=== PATIENT | male | born 1965 | race Caucasian/White ===

== ENCOUNTER 2025-07-15 11:23 | Emergency (ER) | payer MEDICARE, SELFPAY ==
--- NOTE | ~2025-07-15 | XR_ITS ---
CLINICAL HISTORY: fall 3 views right elbow Comparison: None Findings: There is an olecranon fracture which bisects the semilunar joint and reveals approximately 14 mm proximal retraction of the olecranon fragment, measured at the articular surface. No other fracture or dislocation. No joint effusion. No significant arthritic change. No radiopaque foreign body. Impression: 1. Olecranon fracture as described above. This document has been electronically signed by: Ruben Wilson MD on 07/15/2025 12:56:49
--- NOTE | ~2025-07-15 | CT_ITS ---
CLINICAL HISTORY: fall Exam: Nonenhanced CT of the left hip with multiplanar reformats. Comparison: None. Findings: Osseous structures: There is no fracture or traumatic malalignment. No significant hip arthritic disease. No destructive osseous lesions. Soft tissues: No hip joint effusion or circumscribed collection. Visualized pelvic structures reveal no pelvic masses, fluid or adenopathy. Mild colonic diverticulosis is present, without CT evidence of diverticulitis. Impression: 1. No hip fracture or traumatic malalignment. This document has been electronically signed by: Ruben Wilson MD on 07/15/2025 14:32:37
--- NOTE | ~2025-07-15 | XR_ITS ---
CLINICAL HISTORY: fall 4 views left knee Comparison: None Findings: No fractures or dislocations. No joint effusion. No significant arthritic change. No radiopaque foreign body. Impression: 1. No fracture or dislocation. This document has been electronically signed by: Ruben Wilson MD on 07/15/2025 12:55:00
[2025-07-15 11:44] VITALS: BP 132/105; BP 132/94; PULSE 100; PULSE 107; RESP 17; TEMP 36.5; O2SAT 95; O2SAT 99; BMI 19.9
[2025-07-15 11:47] VITALS: BP 132/105; PULSE 107; RESP 17; TEMP 36.5; O2SAT 95
--- NOTE | 2025-07-15 11:47 | ED_ITS ---
HPI - General Adult General Chief complaint: Extremity Problem Stated complaint: KNEE PAIN History of Present Illness HPI narrative: Patient is a 60-year-old male came from a hotel complaining of pain to the left knee and to the right elbow. Patient claims he fell approximately 2-4 months ago. EMS reported he fell 4 months ago patient now claims that he fell 2 months ago. Complaining of pain to the elbow on the right and to the left knee. Was witnessed by the nurse to be able to ambulate but slowly. Also admits to drinking alcohol. No IV drug use. No history of heroin. No history of cocaine. No fever no chills no head injury. Related Data Allergies Allergy/AdvReac Type Severity Reaction Status Date / Time No Known Allergies Allergy Verified 07/15/25 11:46 Review of Systems 2 Review of Systems: Positive pain to the right elbow and to the left knee Yes all other systems are reviewed and are negative ON LICENSE OF [facility] Past Medical History Attestation statement: The following information was validated with the patient. Social History Social History Alcohol intake: current Alcohol intake frequency: 0-2 drinks per day Alcohol type: hard liquor Smoked in Last 30 Days: Yes Use of substances other than those prescribed or required for medical reasons: No Advance Directives: No Advance Directives Information Provided: No Do you have a plan to hurt others: No Plan Physical Exam ED Exam Exam: Appearance: Alert. Oriented X3. No acute distress. Eyes: Pupils equal, round and reactive to light. ENT: Pharynx normal. Neck: Normal inspection. Neck supple. No lymph nodes noted. No crepitus CVS: Normal heart rate and rhythm. Pulses normal. Normal S1 and S2 Respiratory: No respiratory distress. Breath sounds normal. No Wheezing. No rales Abdomen: Soft and nontender. No rigidity. No distention. good BS x4 Skin: Skin warm and dry. Normal skin color. Normal skin turgor. Extremities: No lower extremity edema. Neurovascular intact to all extremities. No Lacerations. No Rash. Good range of motion at the right elbow there is no effusion noted. There is no tenderness on palpation was able to straighten his arm out completely. No pain on internal external rotation. No redness to the skin. Sensation intact. Distal pulses intact. No anatomical snuffbox tenderness. Good movement of the hand. Sensation intact. Skin intact. Examination of the left knee showed no effusion. No tenderness on palpation of the patella. No tenderness on palpation of medial and lateral collateral ligament. Distal sensation intact. Pulse 2 +at dorsalis pedis. Skin intact. Movement of the hip intact. Neuro: Oriented X 3. No motor deficit. No sensory deficit. Moving all extermities. No slurred speech Vital Signs: Vital Signs - 24 hr 07/15/25 11:44 07/15/25 11:47 07/15/25 18:06 Temperature 97.7 F 97.7 F 98.4 F Pulse Rate 107 H 107 H 104 H Respiratory Rate 17 17 12 Blood Pressure 132/105 H 132/105 H 128/90 H Pulse Oximetry 95 95 94 Oxygen Delivery Method Room Air Room Air Room Air BMI result Body Mass Index 19.9 Medications Administered Discontinued Medications Generic Name Dose Route Start Last Admin Trade Name Freq PRN Reason Stop Dose Admin Potassium Chloride 10 meq in 100 mls @ 100 mls/hr 07/15/25 12:45 07/15/25 16:42 Potassium Chloride/H20 IV 07/15/25 14:44 Infused Q1H SARAI Infusion Magnesium Sulfate 2 gm in 50 mls @ 150 mls/hr 07/15/25 12:55 07/15/25 17:25 Magnesium Sulfate/H2o IV 07/15/25 13:14 Infused ONCE ONE Infusion Nicotine 21 mg 07/15/25 15:59 07/15/25 16:50 Nicotine 21 Mg Patch.Td24 TRANSDERMA 07/15/25 16:00 21 mg ONCE ONE Administration Potassium Chloride 40 meq 07/15/25 12:38 07/15/25 13:24 Potassium Chloride Packet 20 Meq Packet PO 07/15/25 12:39 40 meq ONCE ONE Administration Medical Decision Making Medical Decision Making MDM Narrative: 60 years old presents today with having fallen after drinking. Alcohol was about 200. X-ray of the elbow showed an old olecranon fracture. Patient has full range of motion. X-ray of the knee by my interpretation showed no acute fracture. Patient's electrolytes showed a low potassium of 2.5. Magnesium 1.5. Magnesium potassium repleted. Patient monitored in the emergency department for few hours. Electrolytes back to baseline. The potassium is back to 3.4 magnesium back to 1.9. Patient did not want to detox. Differential Diagnosis Differential Diagnoses: The differential diagnosis associated with the presentation includes Electrolyte disturbance. Alcohol abuse. Fracture. Admission/Observation Consideration of admission/observation: Escalation of care including admission/observation considered Lab Data MDM Lab Attestation statement: I reviewed the patient's lab results. 07/15/25 12:49 07/15/25 18:04 Labs: Lab Results 07/15/25 07/15/25 07/15/25 Range/Units 12:11 12:49 18:04 WBC 4.6 L (4.8-10.8) X10*3/uL RBC 4.55 L (4.60-5.80) X10*6/uL Hgb 15.0 (14.0-18.0) g/dl Hct 42.8 (42.0-52.0) % MCV 94.1 (80.0-98.0) fL MCH 33.0 (27.0-33.0) pg MCHC 35.0 (31.0-36.0) g/dl RDW 16.5 H (11.0-16.0) % Plt Count 229 (160-400) X10*3/uL MPV 9.2 L (9.4-12.4) fL Immature Gran % (Auto) 0.6 H (0.0-0.4) % Neut % (Auto) 35.5 L (45-73) % Lymph % (Auto) 51.3 H (20-40) % Edwards % (Auto) 10.0 (2-11) % Eos % (Auto) 1.7 (0-4) % Baso % (Auto) 0.9 (0-2) % Lymph # (Auto) 2.4 (1.2-4.9) X10*3/uL Edwards # (Auto) 0.5 (0.1-1.2) X10*3/uL Eos # (Auto) 0.1 (0.0-0.4) X10*3/uL Baso # (Auto) 0.0 (0.0-0.2) X10*3/uL Abs Immat Gran (auto) 0.03 (0.00-0.03) X10*3/uL Absolute Neuts (auto) 1.6 L (2.0-8.3) x10*3/uL Absolute Nucleated RBC 0.000 (0.0-0.012) X10*3/uL Nucleated RBC % (auto) 0.0 (0.0-0.2) /100WBC Sodium 140 143 (135-145) mmol/L Potassium 2.5 L* 3.4 D (3.3-5.1) mmol/L Chloride 98 106 (96-108) mmol/L Carbon Dioxide 23 23 (22-29) mmol/L Anion Gap 22 H 17 (12-20) BUN 4 L 3 L (9-16) mg/dL Creatinine 0.56 0.53 (0.5-1.4) mg/dL Estim Creat Clear Calc 126.1 133.3 Estimated GFR > 60 > 60 Random Glucose 127 H 147 H (60-115) mg/dL Calcium 8.2 L 7.5 L D (8.4-10.2) mg/dL Magnesium 1.5 L 1.9 (1.6-2.6) mg/dL Ethyl Alcohol 193 mg/dL Independent Interpretation I performed an independent interpretation of an: Plain X-Ray (X-ray of the knee no fracture. X-ray of the elbow old olecranon fracture) and CT Scan (CT hip showed no acute fracture) Radiology Impression Discussion of test interpretation with radiology: I have reviewed the radiologist's reading. Chronic Conditions Alcohol abuse Social Determinants Patient?s care significantly limited by Social Determinants of Health including: Problems related to primary support group Discharge Plan Discharge Clinical Impression: Alcohol intoxication, Electrolyte disturbance, Acute hypokalemia, Hypomagnesemia, Closed olecranon fracture Patient Disposition: Home, Self-Care Instructions: Abuse of Alcohol (DC), Elbow Fracture (DC), Hypokalemia (ED), Hypomagnesemia (ED) Additional Instructions: Alcohol use disorder You were seen in the Emergency Department today for treatment of alcohol use disorder.? You may have been given medications to help with your withdrawal symptoms.? Please do not drink alcohol with them. This is very dangerous and can cause respiratory depression or other adverse reactions depending on the medication. If you would like to cut down or stop your alcohol use please consider calling our outpatient Addiction Treatment office:? [facility] (M-F [id number]) [address] [place] [address] You have also been given a list of treatment providers in the area that can assist as well.? If you experience seizures, vomiting blood, black stools, falls, severe headache, chest pain, fevers, trouble breathing, hallucinations or any other concerns you need to call 911 or seek immediate care. Please stay hydrated. Referrals: Physician,None [Primary Care Provider, Medical] Danny Dobbs MD [Physician, Orthopedics] - 07/18/25 Print Language: French
--- NOTE | 2025-07-15 11:51 | PC.NURSE ---
Pt comes to ED via EMS for c/o L knee and R elbow pain x2-4 months. Pt reports falling from a step 2-4 months ago and landing on knees and R elbow. Seen at [facility] for eval--Pt unable to report care given/findings. Pt reports ongoing pain that increased this AM. Pt states he drank two nips this AM d/t pain. On arrival Pt is calm and cooperative. He is observed standing from EMS stretcher and is able to ambulate to C stretcher slowly, but safely. BP and P elevated No respiratory distress; Pt is afebrile. ED provider at bedside for eval. Awaiting orders.
--- OUTSIDE RECORDS SUMMARY | 2025-07-15 12:03 | XMS_ITS | Encounter Summary ---
Author Organization [facility] Address [address] [place] [address] Phone Care Team Providers Care House Cleaner Supervisor Name Role Phone Michaela Rey Primary Care Provider [phone]- [phone] Lynsey Stauffer MD Primary Care Provid er Pcp, Unknown Primary Care Provider Nancy Swain MD Primary Care Provider + [phone] Encounter Details Date Type Department Care Team (Late st Contact Info) Description 03/29/2025 Procedure Pass [facility], Ct Scan - [address] [id number] Social History Tobacco Use Types Packs/Day Years Used Date Smoking Tobacco: Every Day Cigarettes 1 45.9 Started: 1978 Smokeless Tobacco: Never Alcohol Use Standard Drinks/Week Comments Not Currently 0 (1 standard drink = 0.6 oz pur e alcohol) Education Answer Date Recorded Are you interested in more education? Not on benji e 01/02/2023 Are you concerned about learning? Not on file 01/02/2023 No 01/02/2023 No 01/02/2023 Food Answer Date Recorded Within the past 6 months we worried whether our food would run out before we got money to buy more. Never True 03/29/2025 Within the past 6 months the food we bought just didn't last and we didn't have enough money to get more. Never True Residential Stability Answer Date Recor ded What is your housing situation today? I have tree sing 03/29/2025 How many times have you move d in the past 12 months? Zero (I did not move) 03/29/2025 Paying for Meds Answer Date Recorded Do you have trouble paying for medicines? No 03/29/2025 Paying Utility Bills Answer Date Record ed Do you have trouble paying your heating or elect ricity bill? No 03/29/2025 Transportation Answer Date Recorded Has the lack of transportati on kept you from medical appointments or from getting medications? No 03/29/2025 Digital Access Answer Date Recorded No 03/29/2025 Yes 03/29/2025 Do you have reliable internet access at home? Ye s 03/29/2025 Do you have a device (e.g., phone, tablet, computer) with a working camera? Yes 03/29/2025 Intimate Partner Violence Answer Date R ecorded Are you denied basic needs s uch as food, clothing, or medical care? No 03/29/2025 In the past 12 months have y ou been in a relationship with a person who hurts, threatens, or tries to control you? No 03/29/2025 Are you denied basic needs s uch as food, clothing, or medical care? No 03/29/2025 In the past 12 months have y ou been in a relationship with a person who hurts, threatens, or tries to control you? No 03/29/2025 Sex and Gender Information Value Date Recorded Sex Assigned at Male 04/13/2025 5:01 AM EDT Legal Sex Male 9:40 PM EDT Gender Identity Male 04/13/2025 5:01 AM EDT Sexual Orientation Don't know 04/13/2025 5: 01 AM EDT documented as of this encounter Functional Status * Calculated C-SSRS Risk Score (Lifetime/Recent) Answer Date of Assessment Author No Risk Indicated 03/31/2025 8:00 AM EDT Hailee Cloud RN * Schleicher Suicide Severity Rating Scale (Screener/Recent Self-Report) Question Answer Date of Assessment Author 1. Wish to be (Past 1 Month) No 03/31/2025 8:00 AM JOSET Haylee Bills RN 2. Non-Specific Active Suicidal Thoughts (Past 1 Month) No 03/31/2025 8:00 AM EDT Haylee Bills RN 6. Suicidal Behavior (Lifetime) No 03/31/2025 8:00 AM EDT Haylee Bills RN documented as of this encounter Plan of Treatment Not on file documented as of this encounter Visit Diagnoses Not on filedocumented in this encounter Additional Health Concerns Infection Onset Date Last Indicated Resolved Time CoV-Risk 06/03/2025 06/03/2025 06/14/2025 1:21 AM EDT documented as of this encounter Care Teams House Cleaner Supervisor Relationship Specialty Start Date End Date Michaela Rey PA [address] [place] [address] PCP - General Job Checker 03/09/19 04/09/25 Lynsey Stauffer MD [address] [facility] [address] [place] [address] [email or web address] PCP - General Cardiology 04/10/25 04/12/25 Pcp, Unknown PCP - General 04/13/25 05/07/25 Nancy Zamorano MD [address] [place] [address] PCP - General Family Medicine 05/08/25 documented as of this encounter Additional Source Comments The information contained in this document represents components of the legal health record. It is not the complete legal health record.[facility]
--- OUTSIDE RECORDS SUMMARY | 2025-07-15 12:03 | XMS_ITS | Encounter Summary ---
Author Organization [facility] Address [address] [place] [address] [place] [address] Phone Care Team Providers Care Nitro Man Name Role Phone Unknown, Unknown Primary Care Provider Iván Avalos MD Primary Care Provider [phone] Unknown, Unknown Primary Care Provider Michaela Braun Primary Care Provider [phone] Lynsey Stauffer MD Primary Care Provid er Pcp, Unknown Primary Care Provider Nancy Swain MD Primary Care Provider + [phone] Encounter Details Date Type Department Care Team (Late st Contact Info) Description 08/28/2017 Procedure Pass [facility], Ct Scan - [address] [address] Social History Tobacco Use Types Packs/Day Years Used Date Smoking Tobacco: Every Day Alcohol Use Standard Drinks/Week Comments Yes 0 (1 standard drink = 0.6 oz pur e alcohol) Sex and Gender Information Value Date Recorded Sex Assigned at Male 04/13/2025 5:01 AM EDT Legal Sex Male 9:40 PM EDT Gender Identity Male 04/13/2025 5:01 AM EDT Sexual Orientation Don't know 04/13/2025 5: 01 AM EDT documented as of this encounter Plan of Treatment Not on file documented as of this encounter Visit Diagnoses Not on filedocumented in this encounter Additional Health Concerns Infection Onset Date Last Indicated Resolved Time CoV-Risk 06/03/2025 06/03/2025 06/14/2025 1:21 AM EDT documented as of this encounter Care Teams Nitro Man Relationship Specialty Start Date End Date Unknown, Kimberly, PCP - General 08/11/17 10/23/17 Iván Mcrgath MD [email or web address] PCP - General Internal Medicine 10/24/17 12/08/17 Unknown, Unknown, PCP - General 12/09/17 03/08/19 Michaela Rey PA [address] [place] [address] PCP - General Survey Technologist 03/09/19 04/09/25 Lynsey Stauffer MD [address] [place] [address] [address] [place] [address] [email or web address] PCP - General Cardiology 04/10/25 04/12/25 Pcp, Unknown PCP - General 04/13/25 05/07/25 Nancy Zamorano MD [address] [place] [id number] PCP - General Family Medicine 05/08/25 documented as of this encounter Additional Source Comments The information contained in this document represents components of the legal health record. It is not the complete legal health record.[facility]
--- OUTSIDE RECORDS SUMMARY | 2025-07-15 12:03 | XMS_ITS | Clinical Summary ---
Author Organization [facility] Address [address] [place] [address] Care Team Providers Care Residential Treatment Counselor Name Role Phone Rhonda Sexton MD Primary Care Provider [phone] Source Comments PLEASE NOTE, if this patient is a minor, it may be UNLAWFUL to discuss sensitive information that is contained in these records (such as FAMILY PLANNING, MENTAL HEALTH or SUBSTANCE ABUSE) with the minor patient's parent or other person without the patient's specific authorization.[facility] Allergies No known active allergies Medications busPIRone (BUSPAR) 30 mg tablet TAKE 1 TABLET BY MOUTH EVERY DAY 90 Tablet 01/04/2024 Active cloNIDine HCL (CATAPRES) 0.2 mg tablet TAKE 1 TABLET BY MOUTH THREE TIMES A DAY NEEDED 270 Tablet 03/07/2024 Active hydrOXYzine HCL (ATARAX) 50 mg tablet TAKE 1 TABLET BY MOUTH TWICE A DAY NEEDED FOR ANXIETY 180 Tablet 06/06/2024 Active Active Problems No known active problems Immunizations Immunization Administration Dates Next Due INFLUENZA, SEASONAL, INJECTABLE 04/24/2014,05/26,08/15/2011 INFLUENZA, SEASONAL, INJECTA BLE, PRESERVATIVE FREE 05/02/2015,06/20/2013 Moderna COVID-19 Vaccine, re d cap blue label, 12+ Primary Series 04/02/2021 TDAP 02/09/2013 Family History Medical History Relation Name Comments Skin cancer Father Relation Name Status Comments Father Social History Tobacco Use Types Packs/Day Years Used Date Smoking Tobacco: Every Day Cigarettes Smokeless Tobacco: Current Tobacco Cessation:Counseling Given: No Alcohol Use Standard Drinks/Week Comments Not Currently 0 (1 standard drink = 0.6 oz pur e alcohol) Social Connections Answer Date Recorded Connectedness 0 05/19/2024 Financial Resource Strain Answer Date R ecorded Financial Resource Strain 0 2020 Stress Answer Date Recorded Stress 0 08/21/2021 Physical Activity Answer Date Recorded Physical Activity 0 08/21/2021 Food Insecurity Answer Date Recorded Food 0 06/02/2024 Transportation Needs Answer Date Record ed Transportation 0 08/21/2021 Housing Stability Answer Date Recorded Housing 0 08/21/2021 Safety and Environment Answer Date Abhilash rded Safety 0 08/21/2021 Utilities Answer Date Recorded Utilities 0 08/21/2021 Employment Answer Date Recorded Stress 0 05/19/2024 Sex and Gender Information Value Date Recorded Sex Assigned at Male 08/20/2021 1:30 PM PST Legal Sex Male 1:26 PM PST Gender Identity Male 08/20/2021 1:30 PM PST Sexual Orientation Bisexual 08/20/2021 1: 30 PM PST Last Filed Vital Signs Vital Sign Reading Time Taken Comments Blood Pressure 122/72 04/01/2022 2:58 PM EDT Pulse 103 04/01/2022 2:58 PM EDT Temperature 37.1 C (98.7 F) 04/01/2022 2:58 PM EDT Respiratory Rate - - Oxygen Saturation 97% 04/01/2022 2:58 PM EDT Inhaled Oxygen Concentration - - Weight 84.4 kg (186 lb) 04/01/2022 2:58 PM EDT Height 173.4 cm (5' 8.25 ) 01/20/2022 10:17 AM E DT Body Mass Index 28.07 01/20/2022 10:17 AM EDT Plan of Treatment Health Maintenance Due Date Last Done Comments Anxiety Screening 1966 Diabetes Screening 1966 Hepatitis B Screening 1966 Hepatitis C Screening 1966 Lipid Screening 1966 Tobacco Cessation Counseling (#1) 1966 Tobacco Screening 1966 HIV Screening 1966 Medicare Annual Wellness Visit 1984 Imm-Hepatitis B (1 of 3 - 19 + 3-dose series) 1985 Imm-Pneumococcal 50+ (1 of 2 - PCV) 1985 CT Colonography 2011 Colonoscopy 2011 Colorectal Cancer Screening 2011 FIT/gFOBT 2011 Fecal DNA 2011 Flexible Sigmoidoscopy 2011 Imm-Zoster, Recombinant (1 of 2) 2016 Imm-DTaP/Tdap/Td (2 - Td or Tdap) 02/09/2023 013 Hypertension Screening (#1) 04/01/2023 Alcohol and Drug Screen 09/07/2024 Depression Annual Screen 09/07/2024 [id number] (2 - season) 2025 021 Imm-Influenza (#1) 2025 05/02/2015, 0 04/24/2014, 06/20/2013, Additional history exists Insurance [place] MEDICA[place] Member Subscriber Plan / Payer (Ef fective 2021-Present) Name:Shayne Dickey Relation to Subscriber:Self Name:Shayne Dickey Payer ID:[id number] Group ID:Not on file Type:Medicaid Address: [address] [id number] MEDICARE - [place] Care Teams Residential Treatment Counselor Relationship Specialty Start Date End Date Rhonda Sexton MD [address] [place] [id number] PCP - General Internal Medicine 08/20/21
--- OUTSIDE RECORDS SUMMARY | 2025-07-15 12:03 | XMS_ITS | Encounter Summary ---
Author Organization [facility] Address [address] [facility] [address] [place] [address] Phone Care Team Providers Care Auto Body Technician Name Role Phone Unknown, Unknown Primary Care Provider Michaela Braun Primary Care Provider [phone] Lynsey Stauffer MD Primary Care Provid er Pcp, Unknown Primary Care Provider Nancy Swain MD Primary Care Provider Encounter Details Date Type Department Care Team (Late st Contact Info) Description 09/01/2018 Transcribe Orders [facility] Specimen Processing [address] [place] [address] Mina Soriano, DO [address] [place] [address] [place] [address] [email or web address] Routine general medical examination at a health care facility (Primary Dx) Social History Tobacco Use Types Packs/Day Years Used Date Smoking Tobacco: Every Day Alcohol Use Standard Drinks/Week Comments Yes 0 (1 standard drink = 0.6 oz pur e alcohol) 1 pt per day last drinkyest Sex and Gender Information Value Date Recorded Sex Assigned at Male 04/13/2025 5:01 AM EDT Legal Sex Male 9:40 PM EDT Gender Identity Male 04/13/2025 5:01 AM EDT Sexual Orientation Don't know 04/13/2025 5: 01 AM EDT documented as of this encounter Plan of Treatment Not on file documented as of this encounter Results * CBC (09/01/2018 9:54 AM EST) WBC 9.42 3.40 - 11.20 K/uL [facility] RBC 5.03 4.50 - 5.50 M/uL [facility] HGB 15.7 13.0 - 17.0 g/dL [facility] HCT 46.9 40.0 - 51.0 % [facility] PLT 335 130 - 400 K/uL [facility] MCV 93.2 79.0 - 98.0 fL [facility] MCH 31.2 27.0 - 34.8 pg [facility] MCHC 33.5 31.5 - 36.0 g/dL [facility] RDW 14.6 10.8 - 14.6 % [facility] MPV 9.8 9.4 - 12.4 [facility] NRBC 0.00 0.00 /100 WBCs [facility] ABSOLUTE NRBC 0.00 0.00 K/uL [facility] Blood 09/01/2018 9:54 AM EST 09/01/2018 11:50 AM EST us Mina A Bigda DO LAB BLOOD BKR ORDERABLES Final R esult Performing Organization Address City/State/[facility] Co de Phone Number [address] [address] documented in this encounter Visit Diagnoses Diagnosis Routine general medical examination at a health care facility- Primary documented in this encounter Additional Health Concerns Infection Onset Date Last Indicated Resolved Time CoV-Risk 06/03/2025 06/03/2025 06/14/2025 1:21 AM EDT documented as of this encounter Care Teams Auto Body Technician Relationship Specialty Start Date End Date Unknown, Unknown, PCP - General 12/09/17 03/08/19 Michaela Rey PA [address] [place] [id number] PCP - General Beam Racker 03/09/19 04/09/25 Lynsey Stauffer MD [address] [place] [address] [email or web address] PCP - General Cardiology 04/10/25 04/12/25 Pcp, Unknown PCP - General 04/13/25 05/07/25 Nancy Zamorano MD [address] [place] [address] PCP - General Family Medicine 05/08/25 documented as of this encounter Additional Source Comments The information contained in this document represents components of the legal health record. It is not the complete legal health record.[facility]
--- OUTSIDE RECORDS SUMMARY | 2025-07-15 12:03 | XMS_ITS | Encounter Summary ---
Author Organization [facility] Address [address] [facility] [address] [place] [address] Phone Care Team Providers Care Plant Production Worker Name Role Phone Michaela Rey Primary Care Provider [phone]- [phone] Lynsey Stauffer MD Primary Care Provid er Pcp, Unknown Primary Care Provider Nancy Swain MD Primary Care Provider + [phone] Encounter Details Date Type Department Care Team (Late st Contact Info) Description 06/27/2021 Procedure Pass [facility], Ct Scan - [address] [id number] Social History Tobacco Use Types Packs/Day Years [...] Date of Assessment Author No Risk Indicated 06/27/2021 3:09 AM EDT Shona Couch RN * [place] Suicide Severity Rating Scale (Screener/Recent Self-Report) Question Answer Date of Assessment Author 1. Wish to be (Past 1 Month) No 06/27/2021 3:09 AM EDT Liz Dupont RN 2. Non-Specific Active Suicidal Thoughts (Past 1 Month) No 06/27/2021 3:09 AM EDT Liz Dupont RN 6. Suicidal Behavior (Lifetime) No 06/27/2021 3:09 AM EDT Lzi Dupont RN documented as of this encounter Plan of Treatment Not on file documented as of this encounter Visit Diagnoses Not on filedocumented in this encounter Additional Health Concerns Infection Onset Date Last Indicated Resolved Time CoV-Risk 06/03/2025 06/03/2025 06/14/2025 1:21 AM EDT documented as of this encounter Care Teams Plant Production Worker Relationship Specialty Start Date End Date Michaela Rey PA [address] [place] [id number] PCP - General Machine Castings Plasterer 03/09/19 04/09/25 Lynsey Stauffer MD [address] [facility] [address] [place] [address] [email or web address] PCP - General Cardiology 04/10/25 04/12/25 Pcp, Unknown PCP - General 04/13/25 05/07/25 Nancy Zamorano MD [address] [place] [id number] PCP - General Family Medicine 05/08/25 documented as of this encounter Additional Source Comments The information contained in this document represents components of the legal health record. It is not the complete legal health record.[facility]
--- OUTSIDE RECORDS SUMMARY | 2025-07-15 12:03 | XMS_ITS | Encounter Summary ---
Author Organization [facility] Address [address] [place] [address] [place] [address] Phone Care Team Providers Care Cd Reactor Operator Head Name Role Phone Unknown, Unknown Primary Care Provider Iván Avalos MD Primary Care Provider [phone] Unknown, Unknown Primary Care Provider Michaela Braun Primary Care Provider [phone] Lynsey Stauffer MD Primary Care Provid er Pcp, Unknown Primary Care Provider Nancy Swain MD Primary Care Provider + [phone] Encounter Details Date Type Department Care Team (Late st Contact Info) Description 08/28/2017 Procedure Pass [facility], Ct Scan - [address] [address] Social History Tobacco Use Types Packs/Day Years [...] documented as of this encounter Care Teams Cd Reactor Operator Head Relationship Specialty Start Date End Date Unknown, Kimberly, PCP - General 08/11/17 10/23/17 Iván Mcgrath MD [email or web address] PCP - General Internal Medicine 10/24/17 12/08/17 Unknown, Unknown, PCP - General 12/09/17 03/08/19 Michaela Rey PA [address] [place] [phone] PCP - General Night Shift 03/09/19 04/09/25 Lynsey Stauffer MD [address] [place] [address] [address] [place] [address] [email or web address] PCP - General Cardiology 04/10/25 04/12/25 Pcp, Unknown PCP - General 04/13/25 05/07/25 Nancy Zamorano MD [address] [place] [id number] PCP - General Family Medicine 05/08/25 documented as of this encounter Additional Source Comments The information contained in this document represents components of the legal health record. It is not the complete legal health record.[facility]
--- OUTSIDE RECORDS SUMMARY | 2025-07-15 12:03 | XMS_ITS | Clinical Summary ---
Author Organization 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 60 tablet 05/29/2025 Active thiamine (VITAMIN B-1) 100 mg Tab tablet Take 1 tablet (100 mg total) by mouth daily. 30 tablet 05/29/2025 multivitamin per tablet Take 1 tablet by mouth daily. 30 tablet 05/29/2025 5 folic acid (FOLVITE) 1 MG tablet Take 1 tablet (1 mg total) by mouth daily. 30 tablet 05/29/2025 5 Active Problems Problem Noted Date Diagnosed Date Alcohol withdrawal 05/07/2025 Assessment & Plan (05/07/2025 11:54 AM EDT): Shayne has not been clear as to when his last drink was, but he clearly began withdrawing upon discharge from the ER after evaluation for knee pain. He has appropriately been loaded with 10 mg/kg of phenobarbital with another 130 mg bolus given shortly after. His vital signs seem to be improving. He has mild sedation from this. He will be admitted to telemetry due to his electrolyte abnormalities. 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 High-dose IV thiamine. Multivitamin and folate supplementation. Social work and case management consult when appropriate. He will be monitored on the [facility] protocol. There is room to increase dosing of phenobarbital if necessary. Depressed mood 04/02/2025 Assessment & Plan (04/06/2025 3:55 PM EDT): Anticipate dispo to voluntary inpatient psychiatric unit Assessment & Plan (04/05/2025 3:00 PM EDT): Anticipate dispo to voluntary inpatient psychiatric unit Assessment & Plan (04/04/2025 12:09 PM EDT): Anticipate dispo to voluntary inpatient psychiatric unit Assessment & Plan (04/03/2025 6:47 PM EDT): Discussing treatment options including the possibility of voluntary psychiatric care Assessment & Plan (04/02/2025 3:50 PM EDT): Describes worse than baseline depression will ask her BHRT assessment Metabolic alkalosis 03/31/2025 Assessment & Plan (04/06/2025 3:55 PM EDT): improved Assessment & Plan (04/05/2025 3:00 PM EDT): improved Assessment & Plan (04/04/2025 12:09 PM EDT): improved Assessment & Plan (04/04/2025 9:29 AM EDT): No longer a concern Nephrology will sign off. Thank you for the consultation. Quality Clinical Documentation: Assessment & Plan (04/03/2025 6:47 PM EDT): improved Assessment & Plan (04/03/2025 9:01 AM EDT): No longer a concern Quality Clinical Documentation: Assessment & Plan (04/02/2025 3:50 PM EDT): improved Assessment & Plan (04/02/2025 1:12 PM EDT): Quality Clinical Documentation: Assessment & Plan (04/01/2025 10:40 AM EDT): Quality Clinical Documentation: Assessment & Plan (03/31/2025 9:15 AM EDT): Chloride responsive will continue to improve with isotonic volume resuscitation and potassium correction takes place. Target K to normal levels. Quality Clinical Documentation: Hyponatremia 03/30/2025 Assessment & Plan (06/18/2025 4:10 PM EDT): With los osmolality of 261, thought to be secondary to beer potomania, however patient reports not drinking over several days, patient has had urinary sodium <20 which could also indicate tea and toast syndrome if not able to secure stable food, urine osmolality in the past has not been elevated, therefore it is less likely SIADH. Sodium level improved overnight, now up to 131. Urine sodium less than 20. Urine creatinine 233 --Encourage p.o. diet --Can liberalize fluid restriction --Consult to adoption social worker given homelessness, recent EtOH abuse and limited access to nutrition Assessment & Plan (06/17/2025 12:01 PM EDT): With los osmolality of 261, thought to be secondary to beer potomania, however patient reports not drinking over several days, patient has had urinary sodium <20 which could also indicate tea and toast syndrome if not able to secure stable food, urine osmolality in the past has not been elevated, therefore it is less likely SIADH. - Check urinary osmolality and sodium - Fluid restrict <1.2L/d - Start PO intake of food with protein - Will recheck parameters later today Assessment & Plan (05/28/2025 1:57 PM EDT): Suspect hypoosmotic hyponatremia in the setting of decreased solute intake and volume depletion. Similar episode occurred back in March requiring ICU admission hypertonic saline, but noted to have a tom of sodium 110 at that time with encephalopathy. - Patient was placed on fluid restriction with rapid improvement in his sodium levels requiring D5W overnight. Sodium levels now stabilized, normalized. - Urine sodium <20, urine osmo 106, serum osmolality low 252 - TSH wnl -Hypokalemia, hypomagnesemia secondary to EtOH repleted and currently normalized. EtOH abstinence was emphasized during hospitalization. Assessment & Plan (05/27/2025 3:22 PM EDT): Suspect hypoosmotic hyponatremia in the setting of decreased solute intake and volume depletion. Similar episode occurred back in March requiring ICU admission hypertonic saline, but noted to have a tom of sodium 110 at that time with encephalopathy. - Will place on 1 L fluid restriction. - Continue to monitor sodium every 6 hours - Gradually increase sodium 6-8 mill equivalents over the next 24 hours. - Urine sodium <20, urine osmo 106, serum osmolality low 252 - TSH wnl Assessment & Plan (05/27/2025 6:44 AM EDT): Suspect hypoosmotic hyponatremia in the setting of decreased solute intake and volume depletion. Similar episode occurred back in March requiring ICU admission hypertonic saline, but noted to have a tom of sodium 110 at that time with encephalopathy. - Will place on 1 L fluid restriction. - Continue to monitor sodium every 6 hours -Gradually increase sodium 6-8 mill equivalents over the next 24 hours. - Obtain urine sodium, urine osmolality, and serum osmolality - Low suspicion for thyroid or adrenal insufficiency, but will obtain TSH reflex. Assessment & Plan (04/06/2025 3:55 PM EDT): Patient initially required ICU for sodium of 110 on 03/30 Sodium improved to 131 -Patient does report drinking a lot of water - Continue fluid restriction 1500 ml and continue to encourage him to avoid excessive water intake -Nephrology is following Assessment & Plan (04/05/2025 3:00 PM EDT): Patient initially required ICU for sodium of 110 on 03/30 Sodium is now improved to 131 -Patient does report drinking a lot of water - Continue fluid restriction 1500 ml and continue to encourage him to avoid excessive water intake -Nephrology is following Assessment & Plan (04/04/2025 12:09 PM EDT): Patient initially required ICU for sodium of 110 on 03/30 Sodium is now improved to 132 -Patient does report drinking a lot of water - Continue fluid restriction 1500 ml and continue to encourage him to avoid excessive water intake -Nephrology is following Assessment & Plan (04/04/2025 9:29 AM EDT): -Corrected at 130-132 stable. Continue to monitor. - Continue with fluid restriction 1500 mL daily. Assessment & Plan (04/03/2025 6:47 PM EDT): Patient initially required ICU for sodium of 110 on 03/30 Sodium is now improved to 130 -Patient does report drinking a lot of water - Continue fluid restriction 1500 ml and continue to encourage him to avoid excessive water intake -Nephrology is following Assessment & Plan (04/03/2025 9:01 AM EDT): -Corrected at 130 stable. Continue to monitor daily. - Continue with fluid restriction 1500 mL daily. Assessment & Plan (04/02/2025 3:50 PM EDT): Patient initially required ICU for sodium of 110 on 03/30 Sodium is now improved to 129 -Reviewed nephrology's note Dr. Santos which is slightly confusing it appears there is some old information included in the note, but the current assessment and recommendations appear to be hypoosmotic hyponatremia as a result of a combination of perfusion dependent mechanisms of ADH release initially likely as a result of early decreased intravascular volume compounded by poor oral intake resulting in poor osmole intake limiting ability to excrete water appropriately. Perfusion and dependent ADH secretion likely also playing a role. The patient's sodium has stabilized albeit at a lower than normal level. I have reinstituted a tighter fluid restriction and will follow his sodium before adding urine osmole such as urea or sodium to his regimen. -Patient does report drinking a lot of water, he was started on the fluid restriction recommended by Dr. Santos this afternoon and we will see how his sodium trends Assessment & Plan (04/02/2025 1:12 PM EDT): Sodium levels 123-124 as of this morning right at target thankfully responding well to DDAVP and water repletion to avoid rapid hyponatremia correction and ODS. - At present I would suggest to initiate IV normal saline at 75 mL/h +40 mEq Kcl/L -May switch sodium checks to every 4 hours expect sodium levels to correct towards 128-130 in the next 24 hours. Assessment & Plan (03/31/2025 9:15 AM EDT): Sodium levels 123-124 as of this morning right at target thankfully responding well to DDAVP and water repletion to avoid rapid hyponatremia correction and ODS. - At present I would suggest to initiate IV normal saline at 75 mL/h +40 mEq Kcl/L -May switch sodium checks to every 4 hours expect sodium levels to correct towards 128-130 in the next 24 hours. Alcohol use disorder 03/30/2025 Assessment & Plan (05/28/2025 1:57 PM EDT): Patient presented with alcohol withdrawal with evidence of tremulous. Patient is not a good historian, last drink is unclear, suspect drinking at least 7-8 nips per day. Has prior history of withdrawal seizures, none recently, not on antiepileptics. Alcohol level was negative. - Patient received phenobarbital loading dose on 05/27 at 4 AM - Continue alcohol withdrawal protocol - Start thiamine, folate, multivitamin - May consider additional doses of phenobarbital if needed for elevated CIWA scores. - Avoiding hydroxyzine due to prolonged QT - May consider adding clonidine if needed Assessment & Plan (05/27/2025 3:22 PM EDT): Patient presented with alcohol withdrawal with evidence of tremulous. Patient is not a good historian, last drink is unclear, suspect drinking at least 7-8 nips per day. Has prior history of withdrawal seizures, none recently, not on antiepileptics. Alcohol level was negative. - Patient was started on phenobarbital loading dose. - Continue alcohol withdrawal protocol - Start thiamine, folate, multivitamin - May consider additional doses of phenobarbital if needed for elevated CIWA scores. - Avoiding hydroxyzine due to prolonged QT - May consider adding clonidine if needed Assessment & Plan (05/27/2025 6:44 AM EDT): Patient presented with alcohol withdrawal with evidence of tremulous. Patient is not a good historian, last drink is unclear, suspect drinking at least 7-8 nips per day. Has prior history of withdrawal seizures, none recently, not on antiepileptics. Alcohol level was negative. -Patient was started on phenobarbital loading dose. - Continue alcohol withdrawal protocol - Start thiamine, folate, multivitamin - May consider additional doses of phenobarbital if needed for elevated CIWA scores. - Avoiding hydroxyzine due to prolonged QT - May consider adding clonidine if needed Assessment & Plan (04/06/2025 3:55 PM EDT): Symptoms seem well-controlled with the phenobarb he has received, I would continue CIWA scoring through day 5 even though scoring has been reassuring - He does continue to have symptoms of toxic/metabolic encephalopathy and alcohol withdrawal, phenobarbital, recent ICU stay may be contributing factors, he is receiving thiamine He did have a head CT on presentation with no acute findings -Seems to be clearing compared to yesterday Assessment & Plan (04/05/2025 3:00 PM EDT): Symptoms seem well-controlled with the phenobarb he has received, I would continue CIWA scoring through day 5 even though scoring has been reassuring - He does continue to have symptoms of toxic/metabolic encephalopathy and alcohol withdrawal, phenobarbital, recent ICU stay may be contributing factors, he is receiving thiamine He did have a head CT on presentation with no acute findings -Seems to be clearing compared to yesterday Assessment & Plan (04/04/2025 12:09 PM EDT): Symptoms seem well-controlled with the phenobarb he has received, I would continue CIWA scoring through day 5 even though scoring has been reassuring - He does continue to have symptoms of toxic/metabolic encephalopathy and alcohol withdrawal, phenobarbital, recent ICU stay may be contributing factors, he is receiving thiamine He did have a head CT on presentation with no acute findings -Seems to be clearing compared to yesterday Assessment & Plan (04/03/2025 6:47 PM EDT): Symptoms seem well-controlled with the phenobarb he has received, I would continue CIWA scoring through day 5 even though scoring has been reassuring - He does continue to have symptoms of toxic/metabolic encephalopathy and alcohol withdrawal, phenobarbital, recent ICU stay may be contributing factors, he is receiving thiamine He did have a head CT on presentation with no acute findings -Seems to be clearing compared to yesterday Assessment & Plan (04/02/2025 3:50 PM EDT): Symptoms seem well-controlled with the phenobarb he has received, I would continue CIWA scoring through day 5 even though scoring has been reassuring - He does continue to have symptoms of toxic/metabolic encephalopathy and alcohol withdrawal, phenobarbital, recent ICU stay may be contributing factors, he is receiving thiamine He did have a head CT on presentation with no acute findings Toxic metabolic encephalopathy 03/30/2025 Assessment & Plan (04/06/2025 3:55 PM EDT): clearing Assessment & Plan (04/05/2025 3:00 PM EDT): clearing Assessment & Plan (04/04/2025 12:09 PM EDT): clearing Assessment & Plan (04/03/2025 6:47 PM EDT): . Assessment & Plan (04/02/2025 3:50 PM EDT): . Hypokalemia 03/30/2025 Assessment & Plan (06/18/2025 4:10 PM EDT): Serum potassium noted to be at 2.9, not on diuretics. May be related to nutritional deficiencies in the context of chronic alcoholism. Improving with replacement. Phosphorus level still low at 2.6 --Start Neutra-Phos packets 4 times daily x 2 days -- Consult to nutrition Assessment & Plan (06/17/2025 12:01 PM EDT): Serum potassium noted to be at 2.9, not on diuretics. May be related to nutritional deficiencies in the context of chronic alcoholism. Plan to re-check later today following adequate repletion. Assessment & Plan (05/28/2025 1:57 PM EDT): Suspect due to poor oral intake. No evidence of GI loss. Evidence of prolonged QTc. Received IV and p.o. telemetry supplementation - Repeat BMP with resolution - Continue to replace as needed. Assessment & Plan (05/27/2025 3:22 PM EDT): Suspect due to poor oral intake. No evidence of GI loss. Evidence of prolonged QTc. Received KCl 40 mill equivalent p.o. and IV KCl 10 mill equivalent - Repeat BMP - Continue replace as needed. Assessment & Plan (05/27/2025 6:44 AM EDT): Suspect due to poor oral intake. No evidence of GI loss. Evidence of prolonged QTc. Received KCl 40 mill equivalent p.o. and IV KCl 10 mill equivalent - Repeat BMP in the morning continue replace as needed. Assessment & Plan (05/07/2025 11:54 AM EDT): 2.7. Monitor on telemetry. He had 40 mill equivalents p.o. in the ER. His magnesium was repleted. I ordered another 40 mill equivalents to be given now, and change his fluids to normal saline with 40 of K until we get the potassium levels up to 4. Repeat at 2 PM to decide on further replacement Assessment & Plan (04/06/2025 3:55 PM EDT): improved Assessment & Plan (04/05/2025 3:00 PM EDT): improved Assessment & Plan (04/04/2025 12:09 PM EDT): improved Assessment & Plan (04/04/2025 9:29 AM EDT): -Monitor potassium and replete. -Hypomagnesemia hypocalcemia being corrected continue both calcium and magnesium supplementation - Consider nutritional evaluation for appropriate calorie protein intake Assessment & Plan (04/03/2025 6:47 PM EDT): improved Assessment & Plan (04/03/2025 9:01 AM EDT): -Monitor potassium and replete. -Hypomagnesemia hypocalcemia being corrected continue both calcium and magnesium supplementation - Consider nutritional evaluation for appropriate calorie protein intake Assessment & Plan (04/02/2025 3:50 PM EDT): improved Assessment & Plan (04/02/2025 1:12 PM EDT): Aggressive K repletion as discussed via central line. Hypomagnesemia hypocalcemia being corrected continue to monitor. Assessment & Plan (03/31/2025 9:14 AM EDT): Aggressive K repletion as discussed via central line. Hypomagnesemia hypocalcemia being corrected continue to monitor. QT prolongation 03/30/2025 Assessment & Plan (05/28/2025 1:57 PM EDT): Prolonged QTc greater than 500 suspect due hyperkalemia. - Continue replace potassium with p.o. and IV -Continue telemetry monitoring -Avoid any medications that may prolong QT further such as IV antiemetic if possible. Not on any QTc prolonging medications at home Assessment & Plan (05/27/2025 3:22 PM EDT): Prolonged QTc greater than 500 suspect due hyperkalemia. - Continue replace potassium with p.o. and IV -Continue telemetry monitoring -Avoid any medications that may prolong QT further such as IV antiemetic if possible. Assessment & Plan (05/27/2025 6:44 AM EDT): Prolonged QTc greater than 500 suspect due hyperkalemia. - Continue replace potassium with p.o. and IV -Continue telemetry monitoring -Avoid any medications that may prolong QT further such as IV antiemetic if possible. Assessment & Plan (05/07/2025 11:54 AM EDT): He is QTc is currently 502 ms. He was over 650 during his last admission and then with correction of his electrolytes ultimately came down to 452 MS. anticipate the same be true at this time. We will be careful with medications as far as QTc prolongation potential. Assessment & Plan (04/06/2025 3:55 PM EDT): EKG shows sinus rhythm with QTc 457 which is acceptable but would want to use caution with any medications that could prolong QT further Assessment & Plan (04/05/2025 3:00 PM EDT): EKG shows sinus rhythm with QTc 457 which is acceptable but would want to use caution with any medications that could prolong QT further Assessment & Plan (04/04/2025 12:09 PM EDT): EKG shows sinus rhythm with QTc 457 which is acceptable but would want to use caution with any medications that could prolong QT further Assessment & Plan (04/03/2025 6:47 PM EDT): EKG shows sinus rhythm with QTc 457 which is acceptable but would want to use caution with any medications that could prolong QT further Assessment & Plan (04/02/2025 3:50 PM EDT): Appears that ICU was monitoring his QT but cardiac monitoring was discontinued when he left the ICU -Will check an EKG to reassess the QT and decide whether he needs any continued cardiac monitoring Tobacco abuse 03/30/2025 Assessment & Plan (05/28/2025 1:57 PM EDT): Nicotine replacement ordered. Assessment & Plan (05/27/2025 3:22 PM EDT): Nicotine replacement ordered. Assessment & Plan (05/27/2025 6:44 AM EDT): Nicotine replacement ordered. Assessment & Plan (05/07/2025 11:54 AM EDT): Nicotine patch will be ordered for replacement. Currently smoking approximately 1 pack/day per report. Assessment & Plan (04/06/2025 3:55 PM EDT): Continue to offer nicotine replacement Assessment & Plan (04/05/2025 3:00 PM EDT): Continue to offer nicotine replacement Assessment & Plan (04/04/2025 12:09 PM EDT): Continue to offer nicotine replacement Assessment & Plan (04/03/2025 6:47 PM EDT): Continue to offer nicotine replacement Assessment & Plan (04/02/2025 3:50 PM EDT): Continue to offer nicotine replacement Rhabdomyolysis 03/30/2025 Assessment & Plan (04/06/2025 3:55 PM EDT): Resolved CK down to the 200s Assessment & Plan (04/05/2025 3:00 PM EDT): Resolved CK down to the 200s Assessment & Plan (04/04/2025 12:09 PM EDT): Resolved CK down to the 200s Assessment & Plan (04/03/2025 6:47 PM EDT): Resolved CK down to the 200s Assessment & Plan (04/02/2025 3:50 PM EDT): Resolved CK down to the 200s Anemia 03/30/2025 Assessment & Plan (05/07/2025 11:54 AM EDT): Shayne was anemic during his last hospital stay. He actually received a transfusion. His hemoglobin hematocrit have been stable for the last several outpatient checks. Platelet count is stable. Will monitor Assessment & Plan (04/06/2025 3:55 PM EDT): - He had a blood transfusion on 03/31 and his hemoglobin now appears stable we will continue to monitor Per chart review it does not feel like he ever had active bleeding Assessment & Plan (04/05/2025 3:00 PM EDT): - He had a blood transfusion on 03/31 and his hemoglobin now appears stable we will continue to monitor Per chart review it does not feel like he ever had active bleeding Assessment & Plan (04/04/2025 12:09 PM EDT): - He had a blood transfusion on 03/31 and his hemoglobin now appears stable we will continue to monitor Per chart review it does not feel like he ever had active bleeding Assessment & Plan (04/03/2025 6:47 PM EDT): - He had a blood transfusion on 03/31 and his hemoglobin now appears stable we will continue to monitor Per chart review it does not feel like he ever had active bleeding Assessment & Plan (04/02/2025 3:50 PM EDT): - He had a blood transfusion on 03/31 and his hemoglobin now appears stable we will continue to monitor Per chart review it does not feel like he ever had active bleeding Urinary retention 03/30/2025 Assessment & Plan (05/07/2025 11:54 AM EDT): Ramiro offers no complaints of urinary symptoms. He had retention during the last hospital stay. Will continue to monitor this for this with the bladder scans daily. Assessment & Plan (04/06/2025 3:55 PM EDT): Ramos removed on 04/01 and thus far he is voiding we are monitoring for urine retention Assessment & Plan (04/05/2025 3:00 PM EDT): Ramos removed on 04/01 and thus far he is voiding we are monitoring for urine retention Assessment & Plan (04/04/2025 12:09 PM EDT): Ramos removed on 04/01 and thus far he is voiding we are monitoring for urine retention Assessment & Plan (04/03/2025 6:47 PM EDT): Ramos removed on 04/01 and thus far he is voiding we are monitoring for urine retention Assessment & Plan (04/02/2025 3:50 PM EDT): Ramos removed on 04/01 and thus far he is voiding we are monitoring for urine retention Umbilical hernia without obstruction and without gangrene 10/13/2019 Assessment & Plan (10/13/2019 2:02 PM EST): The patient has a large umbilical hernia. The skin overlying it is very thin. I had a conversation with the patient today regarding the nature of hernias and options for repair. The risks and benefits of hernia repair including but not limited to the risks of infection, bleeding, chronic pain, recurrence, loss of skin overlying the umbilicus, and infection of the mesh have been explained to the patient. The patient understands and wishes to proceed. He also understands that this repair is not a cosmetic procedure and that he could be left with a lump, bulge, and/or skin changes at the repair site. We discussed choosing not to have this repaired at this time unless it becomes strangulated and needed urgent repair, which he understands. Plan is for open umbilical hernia repair with mesh implantation. He feels he can quit or cut down on smoking to help prevent higher risks of infection and delayed healing that smoking can cause and will do that preoperatively. He will seek immediate medical attention should he develop any of the signs or symptoms of hernia strangulation which we went over. Hypomagnesemia 03/14/2019 Assessment & Plan (05/28/2025 1:57 PM EDT): Suspect due to low solute intake. No evidence of GI loss. Ordered for IV repletion. - Continue telemetry monitoring and replace as needed -Subsequent BMPs with resolution of hypomagnesemia Assessment & Plan (05/27/2025 3:22 PM EDT): Suspect due to low solute intake. No evidence of GI loss. Ordered for IV repletion. - Continue telemetry monitoring and replace as needed Assessment & Plan (05/27/2025 6:44 AM EDT): Suspect due to low solute intake. No evidence of GI loss. Ordered for 2 g IV mag. - Continue telemetry monitoring and replace as needed Assessment & Plan (05/07/2025 11:54 AM EDT): He came in at 1.1. He is at 4 g IV. Repeating at 2 PM to decide on further Hyperlipidemia 03/14/2019 Depression 03/14/2019 Hypertension 03/14/2019 Assessment & Plan (05/07/2025 11:54 AM EDT): His lisinopril was discontinued during the last hospital stay. It is difficult to say whether or not he started back up again. Per his reports he takes what ever the doctors tell me to take . There is no evidence of a recent refill of medications. He did go to a SNF after the hospital stay so it is possible that he has medications from there. For now we will just monitor his blood pressure. Resolved Problems Problem Noted Date Diagnosed Date Resolved Date Hypotension 03/30/2025 03/31/2025 Encounters Date Type Department Care Team Description 06/17/2025 3:52 AM EDT - 06/19/2025 4:56 PM EDT Hospital Encounter [facility] Med[place]urg [place] [address] [place] [address] Carlos Downs MD Vela Parada, Xavier Fernando, MD Green, Tracy L, MD Discharge Disposition: Home or Self Care 06/03/2025 2:15 AM EDT - 06/03/2025 4:24 PM EDT Emergency [facility] Emergency [address] [place] [id number] Miko Mandel, Tigre Mason MD Discharge Disposition: Home or Self Care 05/30/2025 1:03 PM EDT - 05/30/2025 3:00 PM EDT Emergency [facility] Emergency [address] [place] [address] Discharge Disposition: Eloped After Being Seen By Provider 05/27/2025 2:52 AM EDT - 05/29/2025 4:20 PM EDT Hospital Encounter [facility] Telemetry [place] [address] [place] [address] Chuyita Meneses MD Wong, Sing Wai, MD Arepally, Sandeep, MD Discharge Disposition: Home or Self Care 05/18/2025 10:08 PM EDT - 05/19/2025 7:26 AM EDT Emergency [facility] Emergency [address] [place] [address] Miko Mandel, Discharge Disposition: Home or Self Care 05/14/2025 4:17 AM EDT - 05/14/2025 9:37 AM EDT Emergency [facility] Emergency [address] [place] [id number] Miko Mandel DO Chapin, Ethan Adair, MD Discharge Disposition: Home or Self Care 05/13/2025 10:05 PM EDT - 05/14/2025 1:53 AM EDT Emergency [facility] Emergency [address] [place] [address] Miko Mandel DO Discharge Disposition: Home or Self Care 05/10/2025 4:08 AM EDT - 05/10/2025 4:09 AM EDT Emergency [facility] Emergency [address] [place] [address] Miko Mandel DO Discharge Disposition: Home or Self Care 05/07/2025 5:48 AM EDT - 05/08/2025 2:07 PM EDT Hospital Encounter [facility] [place] [address] [place] [address] Don Palomares MD Miskovsky, Glenn E, MD Altman, Evan K, DO, MPH Discharge Disposition: Home or Self Care 05/07/2025 12:35 AM EDT - 05/07/2025 2:56 AM EDT Emergency [facility] Emergency [address] [place] [address] Discharge Disposition: Home or Self Care 05/06/2025 5:57 AM EDT - 05/06/2025 9:04 AM EDT Emergency [facility] Emergency [address] [place] [id number] Don Palomares MD Discharge Disposition: Home or Self Care from Last 3 Months Immunizations Immunization Administration Dates Next Due INFLUENZA, SPLIT VIRUS, TRIVALENT PF (Deferred: Other - states he already received this season),05/02/2015 INFLUENZA, SPLIT VIRUS, TRIV ALENT W/ PRESERVATIVE IM 05/26/2012,08/15/2011 Tdap 02/09/2013 Family History Medical History Relation Comments Alcohol abuse Father Lymphoma Father Skin cancer Father melanoma with me tastasis Anxiety disorder Mother Relation Status Comments Father (Age 78) Mother Social History Tobacco Use Types Packs/Day Years Used Date Smoking Tobacco: Every Day Cigarettes 1 45.9 Started: 1979 Smokeless Tobacco: Never Tobacco Cessation:Ready to Q uit: Not Asked; Counseling Given: Not Answered Alcohol Use Standard Drinks/Week Comments Yes 0 [...] before we got money to buy more. Often True 06/17/2025 Within the past 6 months the food we bought just didn't last and we didn't have enough money to get more. Often True Residential Stability Answer Date Recor ded What is your housing situation today? I do not have housing (staying in a hotel, in a detention, living outside on the street, on a beach, in a car, or in a park) 06/17/2025 How many times have you move d in the past 12 months? Zero (I did not move) 06/17/2025 Paying for Meds Answer Date Recorded Do you have trouble paying for medicines? Yes 06/17/2025 Paying Utility Bills Answer Date Record ed Do you have trouble paying your heating or elect ricity bill? Yes 06/17/2025 Transportation Answer Date Recorded Has the lack of transportati on kept you from medical appointments or from getting medications? Yes 06/17/2025 Digital Access Answer Date Recorded Yes 06/17/2025 No 06/17/2025 Do you have reliable internet access at home? No 06/17/2025 Do you have a device (e.g., phone, tablet, computer) with a working camera? No 06/17/2025 Intimate Partner Violence Answer Date R ecorded Are you denied basic needs s uch as food, clothing, or medical care? No 06/16/2025 In the past 12 months have y ou been in a relationship with a person who hurts, threatens, or tries to control you? No 06/16/2025 Are you denied basic needs s uch as food, clothing, or medical care? No 06/16/2025 In the past 12 months have y ou been in a relationship with a person who hurts, threatens, or tries to control you? No 06/16/2025 Sex and Gender Information Value Date Recorded Sex Assigned at Male 04/13/2025 5:01 AM EDT Legal Sex Male 9:40 PM EDT Gender Identity Male 04/13/2025 5:01 AM EDT Sexual Orientation Don't know 04/13/2025 5: 01 AM EDT Last Filed Vital Signs Vital Sign Reading Time Taken Comments Blood Pressure 136/97 06/19/2025 7:29 AM EDT Pulse 118 06/19/2025 7:29 AM EDT Temperature 36.4 C (97.5 F) 06/19/2025 7:29 AM EDT Respiratory Rate 18 06/19/2025 7:29 AM EDT Oxygen Saturation 91% 06/19/2025 7:29 AM EDT Inhaled Oxygen Concentration - - Weight 71.7 kg (158 lb) 06/17/2025 12:17 PM EDT Height 170.2 cm (5' 7 ) 06/17/2025 12:17 PM EDT Body Mass Index 24.75 06/17/2025 12:17 PM EDT Plan of Treatment Health Maintenance Due Date Last Done Comments BLOOD PRESSURE 1966 LIPID PANEL 1966 DEPRESSION SCREENING 1978 HIV ONE-TIME SCREENING (18-65 YEARS) 1984 PNEUMOCOCCAL VACCINES (50+ years) (1 of 2 - PCV) 1985 COLOGUARD 2011 COLONOSCOPY 2011 COLORECTAL CANCER SCREENING 2011 FIT TEST 2011 FOBT 2011 SIGMOIDOSCOPY 2011 VIRTUAL COLONOSCOPY 2011 LUNG CANCER SCREENING (LDCT Only) 2016 ZOSTER VACCINES (1 of 2) 2016 Adult Td,Tdap Booster 02/09/2023 02/09/2013 INFLUENZA VACCINE (#1) 2025 5, 04/24/2014, 06/20/2013, Additional history exists COVID-19 VACCINE ( season) 2025 04/02/2021 SMOKING Hx and SMOKELESS TOBACCO SCREENING 06/17/2026 06/17/2025 CREATININE LEVEL 06/19/2026 06/19/2025, 08/2025, 06/17/2025, Additional history exists POTASSIUM LEVEL 06/19/2026 06/19/2025, 06/07, 06/17/2025, Additional history exists RSV VACCINE (1 - 1-dose 75+ series) 2041 HEPATITIS C SCREENING Completed 03/30/2025 , 03/30/2025, 03/30/2025 HIB VACCINES Aged Out No longer eligi ble based on patient's age to complete this topic MENINGOCOCCAL VACCINES (ACWY) Aged Out No longer eligible based on patient's age to complete this topic MENINGOCOCCAL VACCINES (B) Aged Out N o longer eligible based on patient's age to complete this topic Medical Devices Implanted Type Area Physician Relations Representative Device Identifier Shelf Expiration Date Model / Serial / Lot Nodata Implanted:Qty: 4 NODATA Description: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 Zan Implanted:Qty: 2 Zan [employer] 1 in Hernia Prolene 3d Polypropylene Patch Bx/3ea - [id number] Implanted:Qty: 1 on 11/09/2019 by Leigh Ann Das MD at [facility] STANDARD Umbilical [employer] / DIVISION OF J 02/04/2023 [id number] / / [id number] Screw Implanted:Qty: 16 Screw Procedures Procedure Name Priority Date/Time Associated Diagnosis Comments PHOSPHORUS Routine 06/19/2025 8:21 AM EDT MAGNESIUM Routine 06/19/2025 8:21 AM EDT BASIC METABOLIC PANEL (BMP) Routine 06/19/2025 8:21 AM EDT BASIC METABOLIC PANEL (BMP) STAT 06/18/2025 10:24 AM EDT SODIUM, RANDOM URINE STAT 06/18/2025 7:28 AM EDT OSMOLALITY (URINE, RANDOM) STAT 06/18/2025 7:28 AM EDT MAGNESIUM STAT 06/17/2025 4:41 PM EDT PHOSPHORUS STAT 06/17/2025 4:41 PM EDT BASIC METABOLIC PANEL (BMP) STAT 06/17/2025 4:41 PM EDT OSMOLALITY, SERUM STAT 06/17/2025 11: 28 AM EDT ECG 12-LEAD STAT 06/17/2025 11:15 AM EDT MAGNESIUM STAT 06/17/2025 8:48 AM EDT LFTS (HEPATIC PANEL) STAT 06/17/2025 8:48 AM EDT BASIC METABOLIC PANEL (BMP) STAT 06/17/2025 8:48 AM EDT CBC AND DIFFERENTIAL STAT 06/17/2025 8:48 AM EDT LACTIC ACID (LACTATE) STAT 06/03/2025 8:02 AM EDT COVID PANDEMIC RESPIRATORY VIRAL ORDER (PRO) STAT 06/03/2025 5:40 AM EDT LACTIC ACID (LACTATE) STAT 06/03/2025 5:03 AM EDT LACTIC ACID (LACTATE) STAT 06/03/2025 3:19 AM EDT ETHANOL, BLOOD STAT 06/03/2025 3:19 AM EDT LFTS (HEPATIC PANEL) STAT 06/03/2025 3:19 AM EDT BASIC METABOLIC PANEL (BMP) STAT 06/03/2025 3:19 AM EDT CBC AND DIFFERENTIAL STAT 06/03/2025 3:19 AM EDT BLOOD CULTURE, ROUTINE STAT 3:19 AM EDT BLOOD CULTURE, ROUTINE STAT 3:19 AM EDT CBC Routine 05/29/2025 6:23 AM EDT BASIC METABOLIC PANEL (BMP) Routine 05/29/2025 6:23 AM EDT MAGNESIUM Timed 05/28/2025 1:09 PM EDT BASIC METABOLIC PANEL (BMP) Timed 05/28/2025 1:09 PM EDT MAGNESIUM Routine 05/28/2025 6:03 AM EDT BASIC METABOLIC PANEL (BMP) Routine 05/28/2025 6:03 AM EDT PHOSPHORUS Routine 05/28/2025 3:53 AM EDT MAGNESIUM Routine 05/28/2025 3:53 AM EDT CBC Routine 05/28/2025 3:53 AM EDT COMPREHENSIVE METABOLIC PANEL (CMP) Routine 05/28/2025 3:53 AM EDT MAGNESIUM Routine 05/27/2025 6:37 PM EDT BASIC METABOLIC PANEL (BMP) Routine 05/27/2025 6:37 PM EDT LAB ADD ON Routine 05/27/2025 11:50 AM EDT MAGNESIUM Routine 05/27/2025 11:50 AM EDT BASIC METABOLIC PANEL (BMP) Routine 05/27/2025 11:50 AM EDT IONIZED CALCIUM STAT 05/27/2025 8:59 AM EDT TSH WITH REFLEX STAT 05/27/2025 8:59 AM EDT OSMOLALITY, SERUM STAT 05/27/2025 8:5 9 AM EDT MAGNESIUM STAT 05/27/2025 8:59 AM EDT BASIC METABOLIC PANEL (BMP) STAT 05/27/2025 8:59 AM EDT OSMOLALITY (URINE, RANDOM) Routine 05/27/2025 7:29 AM EDT SODIUM, RANDOM URINE Routine 05/27/2025 7:29 AM EDT URINALYSIS WITH REFLEX TO URINE CULTURE STAT 05/27/2025 7:29 AM EDT ECG 12-LEAD STAT 05/27/2025 4:32 AM EDT MAGNESIUM STAT 05/27/2025 3:40 AM EDT ETHANOL, BLOOD STAT 05/27/2025 3:40 AM EDT LFTS (HEPATIC PANEL) STAT 05/27/2025 3:40 AM EDT BASIC METABOLIC PANEL (BMP) STAT 05/27/2025 3:40 AM EDT CBC AND DIFFERENTIAL STAT 05/27/2025 3:40 AM EDT POCT GLUCOSE Routine 05/13/2025 10:34 PM EDT XR ELBOW 3 OR MORE VIEWS (RIGHT) Routine 05/10/2025 2:18 AM EDT XR KNEE 3 VIEW (RIGHT) Routine 2:17 AM EDT CBC Routine 05/08/2025 6:10 AM EDT LFTS (HEPATIC PANEL) Routine 05/08/2025 6:10 AM EDT PHOSPHORUS Routine 05/08/2025 6:10 AM EDT MAGNESIUM Routine 05/08/2025 6:10 AM EDT BASIC METABOLIC PANEL (BMP) Routine 05/08/2025 6:10 AM EDT MAGNESIUM Routine 05/07/2025 1:43 PM EDT BASIC METABOLIC PANEL (BMP) STAT 05/07/2025 1:43 PM EDT ECG 12-LEAD STAT 05/07/2025 10:59 AM EDT MAGNESIUM STAT 05/07/2025 7:17 AM EDT LIPASE STAT 05/07/2025 7:17 AM EDT LFTS (HEPATIC PANEL) STAT 05/07/2025 7:17 AM EDT BASIC METABOLIC PANEL (BMP) STAT 05/07/2025 7:17 AM EDT CBC AND DIFFERENTIAL STAT 05/07/2025 7:17 AM EDT ECG 12-LEAD STAT 05/06/2025 8:35 AM EDT XR KNEE 4 OR MORE VIEWS (RIGHT) Routine 05/06/2025 5:59 AM EDT XR KNEE 4 OR MORE VIEWS (LEFT) Routine 05/06/2025 5:59 AM EDT XR ELBOW 3 OR MORE VIEWS (RIGHT) Routine 05/06/2025 5:58 AM EDT HEPATITIS C ANTIBODY, QUALITATIVE STAT 03/30/2025 4:33 AM EDT from Last 3 Months or Most Recently Relevant to Health Maintenance Results * Phosphorus (06/19/2025 8:21 AM EDT) Only the most recent of4 resultswithin the time period is included. PHOSPHORUS 2.8 2.7 - 4.5 mg/dL [facility] Blood 06/19/2025 8:21 AM EDT 06/19/2025 8:26 AM EDT us Aracelis Durant MD LAB BLOOD BKR ORDERABLES Final Result Performing Organization Address [facility] [address]/[facility] Co de Phone Number [address] [address] * (ABNORMAL) Magnesium (06/19/2025 8:21 AM EDT) Only the most recent of13 resultswithin the time period is included. Pathologist [facility] MAGNESIUM 1.4(L) 1.6 - 2.6 mg/dL [facility] Blood 06/19/2025 8:21 AM EDT 06/19/2025 8:26 AM EDT us Aracelis Durant MD LAB BLOOD BKR ORDERABLES Final Result Performing Organization Address City/[facility] [address]/[facility] Co de Phone Number [address] [address] * (ABNORMAL) Basic metabolic panel (06/19/2025 8:21 AM EDT) Only the most recent of15 resultswithin the time period is included. SODIUM 132(L) 133 - 146 mmol/L [facility] CHLORIDE 93(L) 96 - 108 mmol/L [facility] POTASSIUM 4.0 3.3 - 5.1 mmol/L [facility] CO2 29 21 - 35 mmol/L [facility] BUN 6 6 - 19 mg/dL [facility] CREATININE 0.50 0.5 - 1.5 mg/dL [facility] GLUCOSE 114(H) 70 - 99 mg/dL [facility] CALCIUM 8.5 8.4 - 10.3 mg/dL [facility] EGFR 117 >59 mL/min/1.7 3m2 [facility] Comment:Estimated glomerular filtration rate calculated using the CKD-EPI refit equation. ANION GAP 14 10 - 20 mmol/L [facility] Blood 06/19/2025 8:21 AM EDT 06/19/2025 8:26 AM EDT us Aracelis Durant MD LAB BLOOD BKR ORDERABLES Final Result Performing Organization Address City/[facility] [address]/ZIP Co de Phone Number [address] [address] * Sodium, random urine (06/18/2025 7:28 AM EDT) Only the most recent of2 resultswithin the time period is included. URINE SODIUM <20 mmol/L [facility] Urine (Urine) 06/18/2025 7:2 8 AM EDT 06/18/2025 1:11 PM EDT us Yves Judd MD LAB URINE ORDERAB LES Final Result Performing Organization Address City/[facility] [address]/ZIP Co de Phone Number [address] [address] * Osmolality, Random Urine (06/18/2025 7:28 AM EDT) Only the most recent of2 resultswithin the time period is included. URINE OSMOLALITY 233 mOsm/kg water [facility] Urine (Urine) 06/18/2025 7:2 8 AM EDT 06/18/2025 1:11 PM EDT us Yves Judd MD LAB URINE ORDERAB LES Final Result Performing Organization Address City/[facility] [address]/ZIP Co de Phone Number [address] [address] * (ABNORMAL) Osmolality, serum (06/17/2025 11:28 AM EDT) Only the most recent of2 resultswithin the time period is included. OSMOLALITY 261(L) 289 - 308 mOsm/kg water [facility] Blood 06/17/2025 11:2 8 AM EDT 06/17/2025 11:32 AM EDT us Yves Judd MD LAB BLOOD BKR ORD ERABLES Final Result Performing Organization Address [facility] Co de Phone Number [address] [address] * ECG 12-LEAD (06/17/2025 11:15 AM EDT) Only the most recent of4 resultswithin the time period is included. Ventricular Rate EKG/MIN 108 BPM [facility] Atrial Rate 108 BPM [facility] HI Interval 166 ms [facility] QRS Duration 64 ms [facility] QT Interval 362 ms [facility] QTC Interval 485 ms [facility] P [place] 59 degrees [facility] R Wave [place] 12 degrees [facility] T Wave [place] 51 degrees [facility] 06/17/2025 11:1 5 AM EDT 06/18/2025 8:28 AM EDT Narrative [facility] - 06/18/2025 8:28 AM EDT Sinus tachycardia Otherwise normal ECG When compared with ECG of 27-May-2025 04:32, No significant change was found Confirmed by Stone Nava ([id number]) on 06/18/2025 8:28:25 AM us Carlos Downs MD ECG ORDERABLES Final Result Performing Organization Address [facility] [address]/[facility] Co de Phone Number [email or web address] * (ABNORMAL) LFTs (hepatic panel) (06/17/2025 8:48 AM EDT) Only the most recent of5 resultswithin the time period is included. Pathologist [facility] ALKALINE PHOSPHATASE 121(H) 39 - 117 U/L [facility] TOTAL BILIRUBIN 0.8 0.0 - 1.2 mg/dL [facility] DIRECT BILIRUBIN 0.4(H) 0.0 - 0.2 mg/dL [facility] Bilirubin (Indirect) 0.4 0 - 1.5 mg/dL [facility] AST 29 0 - 37 U/L [facility] ALT 12 0 - 40 U/L [facility] TOTAL PROTEIN 5.8(L) 6.5 - 8.0 g/dL [facility] ALBUMIN 2.8(L) 3.9 - 4.8 g/dL [facility] GLOBULIN 3.0 1 - 4.8 g/dL [facility] A/G Ratio 0.93(L) 1.00 - 4.80 RATIO [facility] Blood 06/17/2025 8:48 AM EDT 06/17/2025 8:51 AM EDT us Carlos Downs MD LAB BLOOD BKR ORDERABLES Final R esult [facility] [address] [place], [place] [id number] * (ABNORMAL) CBC and differential (06/17/2025 8:48 AM EDT) Only the most recent of4 resultswithin the time period is included. Pathologist [facility] WBC 8.46 4.00 - 11.00 K/uL [facility] RBC 4.33(L) 4.50 - 5.90 M/uL [facility] HGB 14.3 13.5 - 17.5 g/dL [facility] HCT 39.8(L) 41.0 - 53.0 % [facility] PLT 161 150 - 450 K/uL [facility] Comment:checked MCV 91.9 80.0 - 100.0 fL [facility] MCH 33.0(H) 27.0 - 31.0 pg [facility] MCHC 35.9 32.0 - 36.0 g/dL [facility] RDW 15.1(H) 11.5 - 14.5 % [facility] MPV 10.1 8.4 - 12.0 fL [facility] NRBC 0.00 0.00 /100 WBCs [facility] ABSOLUTE NRBC 0.00 0.00 K/uL [facility] DIFF [employer] [facility] NEUTS 68.0 48.0 - 76.0 % [facility] LYMPHS 16.8(L) 18.0 - 41.0 % [facility] MONOS 13.7(H) 4.0 - 11.0 % [facility] EOS 0.9 0.0 - 5.0 % [facility] BASOS 0.2 0.0 - 1.5 % [facility] Granulocytes, immature (%) 0.4 0.0 - 0.9 % [facility] ABSOLUTE NEUTS 5.75 1.92 - 7.60 K/uL [facility] ABSOLUTE LYMPHS 1.42 0.72 - 4.10 K/uL [facility] ABSOLUTE MONOS 1.16(H) 0.16 - 1.10 K/uL [facility] ABSOLUTE EOS 0.08 0.00 - 0.50 K/uL [facility] ABSOLUTE BASOS 0.02 0.00 - 0.15 K/uL [facility] Granulocytes, immature 0.03 0.00 - 0.09 K/uL [facility] Blood 06/17/2025 8:48 AM EDT 06/17/2025 8:51 AM EDT us Carlos Downs MD LAB BLOOD BKR ORDERABLES Final R esult Performing Organization Address City/State/[facility] Co de Phone Number [address] [address] * Lactate (06/03/2025 8:02 AM EDT) Only the most recent of3 resultswithin the time period is included. LACTATE 2.00 0.50 - 2.20 mmol/L [facility] Blood 06/03/2025 8:02 AM EDT 06/03/2025 8:10 AM EDT us Miko Mandel DO LAB BLOOD BKR ORDERABLES Nimisha l Result Performing Organization Address [facility] [address]/[facility] Co de Phone Number [address] [address] * COVID Pandemic Respiratory Viral Order (PRO) (06/03/2025 5:40 AM EDT) Test Ordered Rapid COVID has been ordered [facility] Specimen Source/Description [facility] SARS-CoV 2 (COVID-19) PCR Not Detected Not Detected [facility] Comment: SARS-CoV-2 not detected Negative results do not preclude SARS-CoV-2 infection and should not be used as the sole basis for patient management decisions. Negative results must be combined with clinical observations, patient history, and epidemiological information. Other (Nasopharyngeal swab) 06/03/2025 5:40 AM EDT 06/03/2025 5:44 AM EDT us [employer] LAB GENERAL ORDERABLES Final Result Performing Organization Address [facility] Co de Phone Number [address] [address] * (ABNORMAL) Ethanol, blood (06/03/2025 3:19 AM EDT) Only the most recent of2 resultswithin the time period is included. ETHANOL 144(H) <10 mg/dL [facility] Blood 06/03/2025 3:19 AM EDT 06/03/2025 3:25 AM EDT us [employer] LAB BLOOD BKR ORDERABLES Nimisha l Result Performing Organization Address [facility] [address]/[facility] Co de Phone Number [address] [address] * Blood Culture, Routine (06/03/2025 3:19 AM EDT) Only the most recent of2 resultswithin the time period is included. Special Requests None 06/03/2025 2:28 AM EDT [facility] BLOOD CULTURE NO GROWTH 5 DAYS 06/08/2025 3:40 AM EDT [facility] Blood (Blood) 06/03/2025 3:1 9 AM EDT 06/03/2025 3:26 AM EDT us Miko Mandel DO LAB MICROBIOLOGY CULTURE NICOLAS EDWARDS Final Result Performing Organization Address City/[facility] [address]/ZIP Co de Phone Number [address] [address] * (ABNORMAL) CBC (05/29/2025 6:23 AM EDT) Only the most recent of3 resultswithin the time period is included. WBC 5.80 4.00 - 11.00 K/uL [facility] RBC 3.99(L) 4.50 - 5.90 M/uL [facility] HGB 13.2(L) 13.5 - 17.5 g/dL [facility] HCT 40.4(L) 41.0 - 53.0 % [facility] PLT 172 150 - 450 K/uL [facility] MCV 101.3(H) 80.0 - 100.0 fL [facility] MCH 33.1(H) 27.0 - 31.0 pg [facility] MCHC 32.7 32.0 - 36.0 g/dL [facility] RDW 15.8(H) 11.5 - 14.5 % [facility] MPV 10.2 8.4 - 12.0 fL [facility] NRBC 0.00 0.00 /100 WBCs [facility] ABSOLUTE NRBC 0.00 0.00 K/uL [facility] Blood 05/29/2025 6:23 AM EDT 05/29/2025 7:16 AM EDT us Lissa Reynoso NP LAB BLOOD BKR ORDERABLES Final Result Performing Organization Address City/[facility] [address]/ZIP Co de Phone Number [address] [address] * (ABNORMAL) Comprehensive metabolic panel (05/28/2025 3:53 AM EDT) SODIUM 128(L) 133 - 146 mmol/L [facility] POTASSIUM 2.8(L) 3.3 - 5.1 mmol/L [facility] CHLORIDE 91(L) 96 - 108 mmol/L [facility] CO2 27 21 - 35 mmol/L [facility] BUN 5(L) 6 - 19 mg/dL [facility] CREATININE 0.50 0.5 - 1.5 mg/dL [facility] GLUCOSE 106(H) 70 - 99 mg/dL [facility] ALBUMIN 2.8(L) 3.9 - 4.8 g/dL [facility] TOTAL PROTEIN 5.6(L) 6.5 - 8.0 g/dL [facility] CALCIUM 7.8(L) 8.4 - 10.3 mg/dL [facility] ALKALINE PHOSPHATASE 125(H) 39 - 117 U/L [facility] TOTAL BILIRUBIN 0.6 0.0 - 1.2 mg/dL [facility] AST 35 0 - 37 U/L [facility] ALT 16 0 - 40 U/L [facility] GLOBULIN 2.8 1 - 4.8 g/dL [facility] EGFR 117 >59 mL/min/1.7 3m2 [facility] Comment:Estimated glomerular filtration rate calculated using the CKD-EPI refit equation. ANION GAP 13 10 - 20 mmol/L [facility] Blood 05/28/2025 3:53 AM EDT 05/28/2025 4:08 AM EDT us Silvio Bullock MD LAB BLOOD BKR ORDERABLES Final Result [facility] [address], [place] [id number] * Lab Add On: urine sodium, urine osmo (05/27/2025 11:50 AM EDT) TEST REQUESTED URINE SODIUM, URINE OSMO [facility] Comments (Chemistry) Add on order being processed. Floor or provider will be notified if testing cannot be performed [facility] 05/27/2025 11:5 0 AM EDT 05/27/2025 12:04 PM EDT us Lissa Reynoso [employer] LAB BLOOD ORDERABLES Fin al Result Performing Organization Address [facility] [address]/ZIP Co de Phone Number [address] [address] * TSH with reflex (05/27/2025 8:59 AM EDT) TSH 1.61 0.27 - 4.20 uIU/mL [facility] Blood 05/27/2025 8:59 AM EDT 05/27/2025 9:09 AM EDT us Lissa Reynoso COMMERCIAL TRUCK DRIVER LAB BLOOD BKR ORDERABLES Final Result Performing Organization Address [facility] Co de Phone Number [address] [address] * (ABNORMAL) Ionized calcium (05/27/2025 8:59 AM EDT) IONIZED CALCIUM 1.12(L) 1.14 - 1.37 mmol/L [facility] Blood 05/27/2025 8:59 AM EDT 05/27/2025 9:09 AM EDT us Lissa Reynoso COMMERCIAL TRUCK DRIVER LAB BLOOD BKR ORDERABLES Final Result Performing Organization Address [facility] [address]/[facility] Co de Phone Number [address] [address] * Urinalysis w/reflex Urine Culture (05/27/2025 7:29 AM EDT) COLOR Yellow Yellow [facility] CLARITY Clear [facility] GLUCOSE Negative Negative [facility] BILI Negative Negative [facility] KETONES Negative Negative [facility] SPECIFIC GRAVITY <1.005 1.005 - 1.030 [facility] BLOOD Negative Negative [facility] PH 6.0 5.0 - 8.0 [facility] Protein-UA Negative Negative [facility] NITRITE Negative Negative [facility] Leukocyte esterase, ur Negative Negative [facility] Urine (Urine) 05/27/2025 7:2 9 AM EDT 05/27/2025 7:47 AM EDT us Chuyita Meneses MD LAB URINE ORDERABLES Final R esult Performing Organization Address City/[facility] [address]/ZIP Co de Phone Number [address] [address] * (ABNORMAL) POCT Glucose (05/13/2025 10:34 PM EDT) Glucose, POCT 184(H) 70 - 100 mg/dL [facility] 05/13/2025 10:3 4 PM EDT 05/13/2025 10:37 PM EDT us Miko Mandel DO POINT OF CARE TEST ORDERABLES Final Result Performing Organization Address [facility] [address]/[facility] Co de Phone Number [address] [address] * XR ELBOW 3 OR MORE VIEWS (RIGHT) (05/10/2025 2:18 AM EDT) Anatomical Region Laterality Modality Elbow Right Computed Radiogr aphy 05/10/2025 5:17 AM EDT Impressions 05/10/2025 5:19 AM EDT FINDINGS/IMPRESSION: Similar displaced fracture of the olecranon and elbow effusion. Small fracture fragments along the medial aspect of the olecranon are similar. Narrative 05/10/2025 5:19 AM EDT XR ELBOW 3 OR MORE VIEWS (RIGHT) Referring clinician's provided indication for this examination in [facility]: S/P Fall COMPARISON: Elbow radiographs 05/06/2025. Procedure Note Melvin Haile MD - 05/10/2025 XR ELBOW 3 OR MORE VIEWS (RIGHT) Referring clinician's provided indication for this examination in [facility]:S/P Fall COMPARISON: Elbow radiographs 05/06/2025. IMPRESSION: FINDINGS/IMPRESSION: Similar displaced fracture of the olecranon and elbow effusion. Smallfracture fragments along the medial aspect of the olecranon are similar. us Miko Ramirezage DO IMG XR UPPER EXTREMITY Final Result * XR KNEE 3 VIEW (RIGHT) (05/10/2025 2:17 AM EDT) Anatomical Region Laterality Modality Knee Right Computed Radiogr aphy 05/10/2025 5:15 AM EDT Impressions 05/10/2025 5:16 AM EDT FINDINGS/IMPRESSION: No displaced fracture or malalignment of the knee. No suprapatellar effusion. Narrative 05/10/2025 5:16 AM EDT XR KNEE 3 VIEW (RIGHT) Referring clinician's provided indication for this examination in [facility]: S/P Fall COMPARISON: Right knee radiographs 05/06/2025 and relevant prior exams. Procedure Note Melvin Haile MD - 05/10/2025 XR KNEE 3 VIEW (RIGHT) Referring clinician's provided indication for this examination in [facility]:S/P Fall COMPARISON: Right knee radiographs 05/06/2025 and relevant prior exams. IMPRESSION: FINDINGS/IMPRESSION: No displaced fracture or malalignment of the knee. No suprapatellareffusion. us Miko Mandel DO IMG XR LOWER EXTREMITY Final Result * Lipase (05/07/2025 7:17 AM EDT) LIPASE 37 16 - 63 U/L [facility] Blood 05/07/2025 7:17 AM EDT 05/07/2025 7:24 AM EDT us Don Palomares MD LAB BLOOD BKR ORDERABLES Final Result [facility] [address] [place] [address] * XR KNEE 4 OR MORE VIEWS (RIGHT) (05/06/2025 5:59 AM EDT) Anatomical Region Laterality Modality Knee Right Computed Radiogr aphy 05/06/2025 6:01 AM EDT Impressions 05/06/2025 6:08 AM EDT No fracture or dislocation. ATTESTATION: Tigre Wen as teaching physician, have reviewed the images for this case and if necessary edited the report originally created by Nati Odom. Narrative 05/06/2025 6:08 AM EDT XR KNEE 4 OR MORE VIEWS (LEFT), XR KNEE 4 OR MORE VIEWS (RIGHT) Referring clinician's provided indication for this examination in [facility]: Pain COMPARISON: XR KNEE 4 OR MORE VIEWS (LEFT) FINDINGS: Left knee: No fracture. Normal alignment. Mild medial tibiofemoral compartment joint space narrowing. No effusion. Arterial calcifications. Right knee: No fracture. Normal alignment. Normal joint spaces. Lateral view is suboptimally positioned. No effusion. Arterial calcifications. Procedure Note Ovidio Irene MD, MPH - 05/06/2025 XR KNEE 4 OR MORE VIEWS (LEFT), XR KNEE 4 OR MORE VIEWS (RIGHT) Referring clinician's provided indication for this examination in [facility]:Pain COMPARISON: XR KNEE 4 OR MORE VIEWS (LEFT) FINDINGS: Left knee: No fracture. Normal alignment. Mild medial tibiofemoralcompartment joint space narrowing. No effusion. Arterial calcifications. Right knee: No fracture. Normal alignment. Normal joint spaces. Lateralview is suboptimally positioned. No effusion. Arterial calcifications. IMPRESSION: No fracture or dislocation. ATTESTATION: Tigre Wen as teaching physician, have reviewed theimages for this case and if necessary edited the report originally createdby Nati Odom. us Óscar Garcia MD IMG XR LOWER EXTREMITY Final Re sult * XR KNEE 4 OR MORE VIEWS (LEFT) (05/06/2025 5:59 AM EDT) Anatomical Region Laterality Modality Knee Left Computed Radiogr aphy 05/06/2025 6:01 AM EDT Impressions 05/06/2025 6:08 AM EDT No fracture or dislocation. ATTESTATION: Tigre Wen as teaching physician, have reviewed the images for this case and if necessary edited the report originally created by Nati Odom. Narrative 05/06/2025 6:08 AM EDT XR KNEE 4 OR MORE VIEWS (LEFT), XR KNEE 4 OR MORE VIEWS (RIGHT) Referring clinician's provided indication for this examination in [facility]: Pain COMPARISON: XR KNEE 4 OR MORE VIEWS (LEFT) FINDINGS: Left knee: No fracture. Normal alignment. Mild medial tibiofemoral compartment joint space narrowing. No effusion. Arterial calcifications. Right knee: No fracture. Normal alignment. Normal joint spaces. Lateral view is suboptimally positioned. No effusion. Arterial calcifications. Procedure Note Ovidio Irene MD, MPH - 05/06/2025 XR KNEE 4 OR MORE VIEWS (LEFT), XR KNEE 4 OR MORE VIEWS (RIGHT) Referring clinician's provided indication for this examination in [facility]:Pain COMPARISON: XR KNEE 4 OR MORE VIEWS (LEFT) FINDINGS: Left knee: No fracture. Normal alignment. Mild medial tibiofemoralcompartment joint space narrowing. No effusion. Arterial calcifications. Right knee: No fracture. Normal alignment. Normal joint spaces. Lateralview is suboptimally positioned. No effusion. Arterial calcifications. IMPRESSION: No fracture or dislocation. ATTESTATION: Tigre Wen as teaching physician, have reviewed theimages for this case and if necessary edited the report originally createdby Nati Odom. Óscar Garcia MD IMG XR LOWER EXTREMITY Final Re sult * XR ELBOW 3 OR MORE VIEWS (RIGHT) (05/06/2025 5:58 AM EDT) Anatomical Region Laterality Modality Elbow Right Computed Radiogr aphy 05/06/2025 5:59 AM EDT Impressions 05/06/2025 6:01 AM EDT Displaced nonacute olecranon fracture. No dislocation. No effusion. No soft tissue swelling. Narrative 05/06/2025 6:01 AM EDT XR ELBOW 3 OR MORE VIEWS (RIGHT) Referring clinician's provided indication for this examination in [facility]: Pain COMPARISON: None Procedure Note Marija Elliott MD - 05/06/2025 XR ELBOW 3 OR MORE VIEWS (RIGHT) Referring clinician's provided indication for this examination in [facility]:Pain COMPARISON: None IMPRESSION: Displaced nonacute olecranon fracture. No dislocation. No effusion. Nosoft tissue swelling. Óscar Garcia MD IMG XR UPPER EXTREMITY Final Re sult * Hepatitis C antibody, qualitative (03/30/2025 4:33 AM EDT) HCV NON-REACTIV E NON-REACTI VE [facility] Blood 03/30/2025 4:33 AM EDT 03/30/2025 4:39 AM EDT Dayana Bates PA-C, MPH LAB BLOOD BKR ORDER ABEL Final Result [address] [address] from Last 3 Months or Most Recently Relevant to Health Maintenance Insurance [facility] MEDICARE REPLACEMENT [facility] MEDICARE REPLACEMENT Advance Directives For more information, please contact: [phone] (9AM - 5PM [place], Thursday[place]Thursday) Documents on File Type Date Recorded Patient Mobile Product Manager Expl anation Healthcare Proxy 04/06/2025 12:30 PM * Full Code (Latest Code Status on File) Date Activated Date Inactivated Comments 05/27/2025 6:17 AM Question Answer Comments Code Status Confirmed With: Other (specify below ) Code Status Communicated To: Inpatient Attending Code Discussion Comments: presumed * Full Code Date Activated Date Inactivated Comments 05/07/2025 11:14 AM 05/27/2025 6:17 AM Question Answer Comments Code Status Confirmed With: Patient Code Status Communicated To: Inpatient Attending * Full Code Date Activated Date Inactivated Comments 03/30/2025 3:41 AM 05/07/2025 11:14 AM Question Answer Comments Code Status Confirmed With: Other (specify below ) Code Discussion Comments: presumed, encephalopat hic * Full Code (Presumed) Date Activated Date Inactivated Comments 11/09/2019 10:35 AM 11/09/2019 5:14 PM Healthcare Agents on File Name Relationship Healthcare Agent Relationshi p Communication Lissa Helton Relative .Primary Health Care Agent (Proxy form on file) Care Teams Conveyor Weigher Operator Relationship Specialty Start Date End Date Nancy Zamorano MD [address] [place] [id number] PCP - General Family Medicine 05/08/25 Additional Source Comments The information contained in this document represents components of the legal health record. It is not the complete legal health record.[facility]
--- OUTSIDE RECORDS SUMMARY | 2025-07-15 12:03 | XMS_ITS | Encounter Summary ---
Author Organization [facility] Address [address] [facility] [address] [place] [address] Phone Care Team Providers Care Employment Agency Manager Name Role Phone Michaela Rey Primary Care Provider +- [phone] Lynsey Stauffer MD Primary Care Provid er Pcp, Unknown Primary Care Provider Nancy Swain MD Primary Care Provider + [phone] Encounter Details Date Type Department Care Team (Late st Contact Info) Description 06/27/2021 Procedure Pass [facility], Ct Scan - [address] [id number] Social History Tobacco Use Types Packs/Day Years [...] 3:09 AM EDT Shona Couch RN * [place] Suicide Severity Rating Scale (Screener/Recent Self-Report) Question Answer Date of Assessment Author 1. Wish to be (Past 1 Month) No 06/27/2021 3:09 AM EDT Liz Dupont RN 2. Non-Specific Active Suicidal Thoughts (Past 1 Month) No 06/27/2021 3:09 AM EDT Liz Dupont RN 6. Suicidal Behavior (Lifetime) No 06/27/2021 3:09 AM EDT Liz Dupont RN documented as of this encounter Plan of Treatment Not on file documented as of this encounter Visit Diagnoses Not on filedocumented in this encounter Additional Health Concerns Infection Onset Date Last Indicated Resolved Time CoV-Risk 06/03/2025 06/03/2025 06/14/2025 1:21 AM EDT documented as of this encounter Care Teams Employment Agency Manager Relationship Specialty Start Date End Date Michaela Rey PA [address] [place] [id number] PCP - General Roof Mechanic 03/09/19 04/09/25 Lynsey Stauffer MD [address] [place] [address] [email or web address] PCP - General Cardiology 04/10/25 04/12/25 Pcp, Unknown PCP - General 04/13/25 05/07/25 Nancy Zamorano MD [address] [place] [address] PCP - General Family Medicine 05/08/25 documented as of this encounter Additional Source Comments The information contained in this document represents components of the legal health record. It is not the complete legal health record.[facility]
--- OUTSIDE RECORDS SUMMARY | 2025-07-15 12:03 | XMS_ITS | Encounter Summary ---
Author Organization [facility] Address [address] [place] [address] [place] [address] Phone Care Team Providers Care Sales Associate Cashier Name Role Phone Michaela Rey Primary Care Provider [phone]- [phone] Lynsey Stauffer MD Primary Care Provid er Pcp, Unknown Primary Care Provider Nancy Swain MD Primary Care Provider [phone] Encounter Details Date Type Department Care Team (Late st Contact Info) Description 11/09/2019 Procedure Pass [place] Admitting Dept - Virtual Department [address] [place] [address] Social History Tobacco Use Types Packs/Day Years [...] documented as of this encounter Care Teams Sales Associate Cashier Relationship Specialty Start Date End Date Michaela Rey PA [address] [place] [address] PCP - General Five Piece Expansion Maker Hand 03/09/19 04/09/25 Lynsey Stauffer MD [address] [facility] [address] [place] [address] [email or web address] PCP - General Cardiology 04/10/25 04/12/25 Pcp, Unknown PCP - General 04/13/25 05/07/25 Nancy Zamorano MD [address] [place] [address] PCP - General Family Medicine 05/08/25 documented as of this encounter Additional Source Comments The information contained in this document represents components of the legal health record. It is not the complete legal health record.[facility]
--- OUTSIDE RECORDS SUMMARY | 2025-07-15 12:03 | XMS_ITS | Encounter Summary ---
Author Organization [facility] Address [address] [facility] [address] [place] [address] Phone Care Team Providers Care Civil Cadd Technician Name Role Phone Michaela Rey Primary Care Provider +- [phone] Lynsey Stauffer MD Primary Care Provid er Pcp, Unknown Primary Care Provider Nancy Swain MD Primary Care Provider + [phone] Encounter Details Date Type Department Care Team (Late st Contact Info) Description 06/27/2021 Procedure Pass [facility], Ct Scan - [address] [id number] Social History Tobacco Use Types Packs/Day Years [...] 3:09 AM EDT Shona Couch RN * [place] Suicide Severity Rating Scale (Screener/Recent Self-Report) Question [...] documented as of this encounter Care Teams Civil Cadd Technician Relationship Specialty Start Date End Date Michaela Rey PA [address] [place] [address] PCP - General Quality Assurance Calibrator 03/09/19 04/09/25 Lynsey Stauffer MD [address] [facility] [address] [place] [address] [email or web address] PCP - General Cardiology 04/10/25 04/12/25 Pcp, Unknown PCP - General 04/13/25 05/07/25 Nancy aZmorano MD [address] [place] [address] PCP - General Family Medicine 05/08/25 documented as of this encounter Additional Source Comments The information contained in this document represents components of the legal health record. It is not the complete legal health record.[facility]
--- OUTSIDE RECORDS SUMMARY | 2025-07-15 12:03 | XMS_ITS | Encounter Summary ---
Author Organization [facility] Address [address] [place] [address] Phone Care Team Providers Care Sheet Metal Assembler And Riveter Name Role Phone Michaela Rey Primary Care Provider +- [phone] Lynsey Stauffer MD Primary Care Provid er Pcp, Unknown Primary Care Provider Nancy Swain MD Primary Care Provider + [phone] Encounter Details Date Type Department Care Team (Late st Contact Info) Description 03/29/2025 Procedure Pass [facility], Ct Scan - [address] [id number] Social History Tobacco Use Types Packs/Day Years [...] 8:00 AM EDT Hailee Cloud RN * [place] Suicide Severity Rating Scale (Screener/Recent Self-Report) Question [...] documented as of this encounter Care Teams Sheet Metal Assembler And Riveter Relationship Specialty Start Date End Date Michaela Rey PA [address] [place] [address] PCP - General Senior Interior Designer 03/09/19 04/09/25 Lynsey Stauffer MD [address] [facility] [address] [place] [address] [email or web address] PCP - General Cardiology 04/10/25 04/12/25 Pcp, Unknown PCP - General 04/13/25 05/07/25 Nancy Zamorano MD [address] [place] [address] PCP - General Family Medicine 05/08/25 documented as of this encounter Additional Source Comments The information contained in this document represents components of the legal health record. It is not the complete legal health record.[facility]
--- OUTSIDE RECORDS SUMMARY | 2025-07-15 12:03 | XMS_ITS | Encounter Summary ---
Author Organization [facility] Address [address] [facility] [address] [place] [address] Phone Care Team Providers Care Record Label Internship Name Role Phone Unknown, Unknown Primary Care Provider Michaela Braun Primary Care Provider [phone]- [phone] Lynsey Stauffer MD Primary Care Provid er Pcp, Unknown Primary Care Provider Nancy Swain MD Primary Care Provider Encounter Details Date Type Department Care Team (Late st Contact Info) Description 06/01/2018 Transcribe Orders [facility] Specimen Processing [address] [place] [address] Mina Soriano, DO [address] [facility] [place] [address] [place] [address] [email or web address] Health examination of prisoner (Primary Dx) Social History Tobacco Use Types [...] documented as of this encounter Results * (ABNORMAL) CBC (06/02/2018 10:21 AM EDT) WBC 8.78 3.40 - 11.20 K/uL [facility] RBC 5.58(H) 4.50 - 5.50 M/uL [facility] HGB 17.0 13.0 - 17.0 g/dL [facility] HCT 52.7(H) 40.0 - 51.0 % [facility] PLT 339 130 - 400 K/uL [facility] MCV 94.4 79.0 - 98.0 fL [facility] MCH 30.5 27.0 - 34.8 pg [facility] MCHC 32.3 31.5 - 36.0 g/dL [facility] RDW 14.5 10.8 - 14.6 % [facility] MPV 10.3 9.4 - 12.4 fl [facility] NRBC 0.00 /100 WBCs [facility] ABSOLUTE NRBC 0.00 K/uL [facility] Blood 06/02/2018 10:2 1 AM EDT 06/02/2018 3:19 PM EDT us Mina A Bigda DO LAB BLOOD BKR ORDERABLES Final R esult Performing Organization Address City/State/[facility] Co de Phone Number [address] [address] documented in this encounter Visit Diagnoses Diagnosis Health examination of prisoner- Primary Health examination of defined subpopulation documented in this encounter Additional Health Concerns Infection Onset Date Last Indicated Resolved Time CoV-Risk 06/03/2025 06/03/2025 06/14/2025 1:21 AM EDT documented as of this encounter Care Teams Record Label Internship Relationship Specialty Start Date End Date Unknown, Unknown, PCP - General 12/09/17 03/08/19 Mcihaela Rey PA [address] [place] [id number] PCP - General Telecommunications Project Manager 03/09/19 04/09/25 Lynsey Stauffer MD [address] [facility] [address] [place] [address] [email or web address] PCP - General Cardiology 04/10/25 04/12/25 Pcp, Unknown PCP - General 04/13/25 05/07/25 Nancy Zamorano MD [address] [place] [address] PCP - General Family Medicine 05/08/25 documented as of this encounter Additional Source Comments The information contained in this document represents components of the legal health record. It is not the complete legal health record.[facility]
[2025-07-15 12:39] LABS: Anion Gap 22 (12-20); Blood Urea Nitrogen 4 mg/dL (9-16); Calcium 8.2 mg/dL (8.4-10.2); Carbon Dioxide 23 mmol/L (22-29); Chloride 98 mmol/L (96-108); Creatinine Clr Calc Pharmacy 126.1; Estimated Glomerular Filt Rate > 60; Potassium 2.5 mmol/L (3.3-5.1); Sodium 140 mmol/L (135-145)
[2025-07-15 12:49] LABS: Magnesium 1.5 mg/dL (1.6-2.6)
[2025-07-15 12:56] LABS: Hematocrit 42.8 % (42.0-52.0); Hemoglobin 15.0 g/dl (14.0-18.0); Imm Gran Abs Auto 0.03 X10*3/uL (0.00-0.03); Imm Gran Pct Auto 0.6 % (0.0-0.4); Lymphocytes Absolute Auto 2.4 X10*3/uL (1.2-4.9); Mean Corpuscular HGB Conc 35.0 g/dl (31.0-36.0); Mean Corpuscular Hemoglobin 33.0 pg (27.0-33.0); Mean Corpuscular Volume 94.1 fL (80.0-98.0); NRBC Abs Auto 0.000 X10*3/uL (0.0-0.012); NRBC Pct Auto 0.0 /100WBC (0.0-0.2); Platelet Count 229 X10*3/uL (160-400); Red Blood Count 4.55 X10*6/uL (4.60-5.80); White Blood Count 4.6 X10*3/uL (4.8-10.8)
[2025-07-15] MEDS: Potassium Chloride Packet 20 MEQ PACKET 40 MEQ PO (13:24)
[2025-07-15] MEDS: Potassium Chloride/H20 10 MEQ/100 ML PIGGYBACK 100 MEQ IV ×2 (13:25→15:41)
[2025-07-15] MEDS: Magnesium Sulfate/H2O 2 GM/50 ML PIGGYBACK IV (16:49)
[2025-07-15] MEDS: Nicotine 21 MG PATCH.TD24 TRANSDERMA (16:50)
[2025-07-15 18:06] VITALS: BP 128/90; PULSE 104; RESP 12; TEMP 36.9; O2SAT 94
[2025-07-15 18:29] LABS: Anion Gap 17 (12-20); Blood Urea Nitrogen 3 mg/dL (9-16); Calcium 7.5 mg/dL (8.4-10.2); Carbon Dioxide 23 mmol/L (22-29); Chloride 106 mmol/L (96-108); Creatinine Clr Calc Pharmacy 133.3; Estimated Glomerular Filt Rate > 60; Magnesium 1.9 mg/dL (1.6-2.6); Potassium 3.4 mmol/L (3.3-5.1); Sodium 143 mmol/L (135-145)
[2025-07-15 19:10] VITALS: BP 128/90; PULSE 104; RESP 12; TEMP 36.9; O2SAT 94
== END 2025-07-15 19:34 | disposition home or self-care (01) ==
PROVIDERS: Emergency Provider Emergency Medicine Emergency Medical Services
DX: F10.129 Alcohol abuse with intoxication, unspecified (principal); E87.6 Hypokalemia; E83.42 Hypomagnesemia; M25.562 Pain in left knee; S52.021D Displaced fracture of olecranon process without intraarticular extension of right ulna, subsequent encounter for closed fracture with routine healing; W19.XXXD Unspecified fall, subsequent encounter
CPT/HCPCS: 36415; 73070; 73562; 73700; 80048; 80307; 83735; 85025; 99284; J3475; J3480

== ENCOUNTER → 2025-07-15 11:46 | Outpatient (BNV) | payer MEDICARE, SELFPAY | PROVIDERS: Emergency Provider Emergency Medicine Emergency Medical Services; Visit Provider Radiology Diagnostic Radiology | DX: Z04.3 Encounter for examination and observation following other accident (principal) | CPT/HCPCS: 70450 ==

== ENCOUNTER 2025-07-15 21:04 | Emergency (ER) | payer MEDICARE, SELFPAY ==
--- NOTE | ~2025-07-15 | XR_ITS ---
CLINICAL HISTORY: trauma 2 views left knee Comparison: CR - XR KNEE LT 3V - 07/15/25 12:33 EST Findings: There is no fracture or dislocation. Joint spaces appear normal. There is no effusion. There is mild arterial calcification. Impression: No acute findings. This document has been electronically signed by: Jules Kiran MD on 07/16/2025 01:18:33
--- NOTE | ~2025-07-15 | CT_ITS ---
CLINICAL HISTORY: trauma, falls CT head without contrast Comparison: None provided Findings: There is no acute intracranial hemorrhage. There is mild ex vacuo dilation of the ventricles. No mass effect or midline shift is present. The guillermo-white matter differentiation appears normal. 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 There is a chronic lacunar infarct in the right basal ganglia. There is generalized cerebral atrophy. Mild hypoattenuation in the periventricular white matter is consistent with chronic small vessel ischemic disease. The visualized portions of the orbits, paranasal sinuses, and mastoids are unremarkable. No fractures are identified. IMPRESSION: 1. No acute intracranial abnormality. 2. Chronic findings as above. This document has been electronically signed by: Jules Kiran MD on 07/16/2025 00:19:08
[2025-07-15 21:11] VITALS: BP 136/93; PULSE 115; RESP 20; TEMP 36.1; O2SAT 94; BMI 21.5
--- NOTE | 2025-07-15 21:19 | ED.GENADULT ---
HPI - General Adult General Chief complaint: Extremity Injury, Lower Stated complaint: Here today/discharges/fell on his knee in bathroom Time Seen by Provider: 07/15/25 23:51 Source: patient Mode of arrival: ambulatory Limitations: no limitations History of Present Illness ED Provider: Dr. Dalila Oliver HPI narrative: Patient comes to the emergency room a 2nd time today. Patient was discharged a few hours ago for alcohol intoxication, fall, knee pain and elbow pain. According to the patient, patient was in the bathroom in the ED and fell. So patient is checking in again. Complaining of left knee pain. Patient states that he did not hit his head or lost consciousness. Related Data Previous Rx's ?Medication ?Instructions ?Recorded acetaminophen 500 mg tablet 500 mg PO Q6H PRN fever or pain 07/16/25 #20 tabs Allergies Allergy/AdvReac Type Severity Reaction Status Date / Time No Known Allergies Allergy Verified 07/16/25 08:11 Review of Systems Review of Systems: Constitutional : No Weight loss, No Fever, No Chills, No Night Sweats, No Fatigue, No Malaise ENT/Mouth : No Hearing loss, No Ear Pain, No Nasal Congestion, No Sinus Pain, No Hoarseness, No sore throat, No Rhinorrhea, No Swallowing Difficulty Eyes: No Eye Pain, No Swelling, No Redness, No Foreign Body, No Discharge, No Vision Changes Cardiovascular : No Chest Pain, No SOB, No Dyspnea on Exertion, No Orthopnea, No Edema, No Palpitations Respiratory : No Cough, No Sputum, No Wheezing, No Smoke Exposure, No Dyspnea Gastrointestinal : No Nausea, No Vomiting, No Diarrhea, No Constipation, No abdominal Pain, No Hematochezia, No Melena Genitourinary : no irregular bleeding, No Dysuria, No Urinary Frequency, No Hematuria, No Urinary Incontinence, No Urgency, No Flank Pain, No Urinary Flow Changes, No Hesitancy Musculoskeletal : Complaining of right elbow pain and left knee pain Skin : No Skin Lesions, No rash Neuro : No Weakness, No Numbness, No Paresthesias, No Loss of Consciousness, No Dizziness, No Headache Psych : No Anxiety/Panic, No Depression, No SI/HI/AH/VH, No Social Issues, Heme/Lymph: No Bruising, No Bleeding,No Lymphadenopathy Endocrine : No Polyuria, No Polydipsia, No Temperature Intolerance PMFSH Social History Social History Alcohol intake: current Alcohol intake frequency: 0-2 drinks per day Alcohol type: hard liquor Advance Directives: No Advance Directives Information Provided: No Do you have a plan to hurt others: No Plan Physical Exam ED Exam Exam: Appearance: Alert. Oriented X3. No acute distress. Eyes: Pupils equal, round and reactive to light. ENT: Pharynx normal. Neck: Normal inspection. Neck supple. No lymph nodes noted. No crepitus CVS: Normal heart rate and rhythm. Pulses normal. Normal S1 and S2 Respiratory: No respiratory distress. Breath sounds normal. No Wheezing. No rales Abdomen: Soft and nontender. No rigidity. No distention. Skin: Skin warm and dry. Normal skin color. Normal skin turgor. Extremities: No lower extremity edema. No Lacerations. No Rash. Patient is able to fully flex and extend the right arm and elbow. No effusion, no range of motion limitation. Patient's left knee does not have an effusion, no ecchymosis, normal flexion and extension. Patient is ambulatory Neuro: Oriented X 3. No motor deficit. No sensory deficit. Moving all extremities. No slurred speech. CN 2 through 12 grossly intact Psych: calm, cooperative, normal affect Vital Signs: Vital Signs - 24 hr 07/15/25 21:11 07/16/25 01:00 Temperature 97.0 F 97.5 F Pulse Rate 115 H 100 Respiratory Rate 20 14 Blood Pressure 136/93 H 143/96 H Pulse Oximetry 94 93 Oxygen Delivery Method Room Air Room Air BMI result Body Mass Index 21.5 Course Course Course Narrative: 9:20 PM July 15, 2025 Medical screening exam performed. Please refer to detailed history, exam, evaluation, and management by primary provider. 60-year-old male, was seen in the emergency department earlier, discharge at approximately 7pm this evening, 07/15/25, states that was ambulating and got up, fell and landed on his left knee. He did not strike his head. There was no prodromal symptoms. Patient having difficulty with ambulation. Repeat labs prior to discharge with improvement of his potassium and magnesium. Calcium remained mildly low. Reviewed imaging, including left knee which did not reveal any acute process. CT of the hip also negative. Right elbow, demonstrates old olecranon fracture, patient confirms this occurred approximately 5 months ago. Concerned that due to the patient's lack of housing and follow up, patient may be a candidate for evaluation by case management. Check head CT given that the patient has had a recent fall prior to today. UA and tox screen. Medical Decision Making Medical Decision Making [facility] Narrative: Patient was seen here a few hours ago and discharged. We repeated patient's chemistry, there is an improvement in patient's potassium. Magnesium also improved. ETOH is now negative. Earlier today, after being discharged, patient fell in the bathroom. Patient states that he landed on his left knee. I discussed the x-rays about his right elbow. It showed an olecranon fracture. Patient states that this is news to him. However, it was discussed with him in the previous visit. Patient has full range of motion on flexion and extension of the right arm/elbow, no ecchymosis, no swelling, no effusions. Unlikely to be acute. Patient was able to ambulate to the bathroom. We will repeat an x-ray of the left knee. Earlier today, in triage, CT scan of the head was ordered, which shows no acute intracranial abnormality Head CT does not show any acute abnormality x-ray of the knee: No acute abnormality Differential Diagnosis Differential Diagnoses: The differential diagnosis associated with the presentation includes Lab Data [facility] Lab Attestation statement: I reviewed the patient's lab results. Labs: Lab Results 07/15/25 07/16/25 Range/Units 22:20 00:16 Urine Color Dark Yellow Urine Appearance Clear Urine pH 6.0 (5.0-9.0) Ur Specific [place] 1.020 (1.005-1.025) Urine Protein 30 (1+) H (Neg-Trace) mg/dL Urine Glucose (UA) Negative (Negative) mg/dL Urine Ketones Trace (Negative) mg/dL Urine Blood Negative (Negative) Urine Nitrite Positive H (Negative) Ur Leukocyte Esterase Small (1+) H (Negative) Urine RBC 0-2 (0-2) /HPF Urine WBC 0-5 (0-5) /HPF Ur Squamous Epith Cells 3-5 (0-2) /HPF Urine Bacteria None Seen (None Seen) Hyaline Casts >20 (0-2) /LPF Urine Opiates Screen Not Detected (Not Detect) Ur Buprenorphine Scrn Not Detected (Not Detect) ng/mL Ur Oxycodone Screen Not Detected (Not Detect) ng/mL Urine Methadone Screen Not Detected (Not Detect) ng/mL Urine Fentanyl Screen Not Detected (Not Detect) Ur Barbiturates Screen POSITIVE H (Not Detect) Ur Phencyclidine Scrn Not Detected (Not Detect) Ur Amphetamines Screen Not Detected (Not Detect) U Benzodiazepines Scrn Not Detected (Not Detect) Urine Cocaine Screen Not Detected (Not Detect) U Marijuana (THC) Screen Not Detected (Not Detect) Ethyl Alcohol < 10 mg/dL Independent Interpretation I performed an independent interpretation of an: Plain X-Ray and CT Scan Radiology Impression Discussion of test interpretation with radiology: I have reviewed the radiologist's reading. Radiologist Impression: There is no acute intracranial hemorrhage. There is mild ex vacuo dilation of the ventricles. No mass effect or midline shift is present. The guillermo-white matter differentiation appears normal. 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 There is a chronic lacunar infarct in the right basal ganglia. There is generalized cerebral atrophy. Mild hypoattenuation in the periventricular white matter is consistent with chronic small vessel ischemic disease. The visualized portions of the orbits, paranasal sinuses, and mastoids are unremarkable. No fractures are identified. X-ray of the knee: There is no fracture or dislocation. Joint spaces appear normal. There is no effusion. There is mild arterial calcification. No acute findings. Discharge Plan Discharge Clinical Impression: Fall, Knee pain Patient Disposition: Home, Self-Care Instructions: Arthralgia (ED) Additional Instructions: Please follow-up with your primary care physician tomorrow. If you have any worsening or new symptoms, please return to the emergency room or call 911 Prescriptions: New acetaminophen 500 mg tablet 500 mg PO Q6H PRN (Reason: fever or pain) Qty: 20 0RF Interventions: ED Discharge Assessment Last Done: 07/16/25 06:29 Discharge Date/Time: 07/16/25 06:30 Print Language: Kiswahili
--- OUTSIDE RECORDS SUMMARY | 2025-07-15 21:27 | XMS_ITS | Encounter Summary ---
Author Organization [facility] Address [address] [place] [phone] Phone Care Team Providers Care [employer] Name Role Phone Michaela Rey Primary Care Provider +- [phone] Lynsey Stauffer MD Primary Care Provid er Pcp, Unknown Primary Care Provider Nancy Swain MD Primary Care Provider + [phone] Encounter Details Date Type Department Care Team (Late st Contact Info) Description 06/27/2021 Procedure Pass [facility], Ct Scan - [address] [id number] Social History Tobacco Use Types Packs/Day Years [...] 3:09 AM EDT Shona Couch RN * [place] Suicide Severity Rating Scale (Screener/Recent Self-Report) Question [...] documented as of this encounter Care Teams [employer] Relationship Specialty Start Date End Date Michaela Rey PA [address] [place] [id number] PCP - General Bail Bondsman 03/09/19 04/09/25 Lynsey Stauffer MD [address] [place] [address] [email or web address] PCP - General Cardiology 04/10/25 04/12/25 Pcp, Unknown PCP - General 04/13/25 05/07/25 Nancy Zamorano MD [address] [place] [id number] PCP - General Family Medicine 05/08/25 documented as of this encounter Additional Source Comments The information contained in this document represents components of the legal health record. It is not the complete legal health record.[facility]
--- OUTSIDE RECORDS SUMMARY | 2025-07-15 21:27 | XMS_ITS | Clinical Summary ---
Author Organization [facility] Address [address] [place] [address] Phone Care Team Providers Care Wastewater Treatment Operator Name Role Phone Nancy Zamorano MD Primary Care Provider + [phone] Allergies No known active allergies Medications lisinopril [...] appropriate. He will be monitored on the [facility] protocol. There is room to [...] diet --Can liberalize fluid restriction --Consult to social and political studies professor given homelessness, recent EtOH abuse and limited [...] - 06/19/2025 4:56 PM EDT Hospital Encounter [facility] Medsurg [place] [address] [place] [address] Carlos Downs MD Vela Parada, Xavier Fernando, MD Green, Tracy L, MD Discharge Disposition: Home or Self Care 06/03/2025 2:15 AM EDT - 06/03/2025 4:24 PM EDT Emergency [facility] Emergency [address] [place] [address] Miko Mandel, Tigre Mason MD Discharge Disposition: Home or Self Care 05/30/2025 1:03 PM EDT - 05/30/2025 3:00 PM EDT Emergency [facility] Emergency [address] [place] [address] Discharge Disposition: Eloped After Being Seen By Provider 05/27/2025 2:52 AM EDT - 05/29/2025 4:20 PM EDT Hospital Encounter [facility] Telemetry [place] [address] [place] [address] Chuyita Meneses MD Wong, Sing Wai, MD Arepally, Sandeep, MD Discharge Disposition: Home or Self Care 05/18/2025 10:08 PM EDT - 05/19/2025 7:26 AM EDT Emergency [facility] Emergency [address] [place] [address] Miko Mandel, Discharge Disposition: Home or Self Care 05/14/2025 4:17 AM EDT - 05/14/2025 9:37 AM EDT Emergency [facility] Emergency [address] [place] [address] Miko Mandel DO Chapin, Ethan Adair, MD Discharge Disposition: Home or Self Care 05/13/2025 10:05 PM EDT - 05/14/2025 1:53 AM EDT Emergency [facility] Emergency [address] [place] [address] Miko Mandel DO Discharge Disposition: Home or Self Care 05/10/2025 4:08 AM EDT - 05/10/2025 4:09 AM EDT Emergency [facility] Emergency [address] [place] [address] Miko Mandel DO Discharge Disposition: Home or Self Care 05/07/2025 5:48 AM EDT - 05/08/2025 2:07 PM EDT Hospital Encounter [facility] [place] [address] [place] [address] Don Palomares MD Miskovsky, Glenn E, MD Altman, Evan K, DO, MPH Discharge Disposition: Home or Self Care 05/07/2025 12:35 AM EDT - 05/07/2025 2:56 AM EDT Emergency [facility] Emergency [address] [place] [address] Discharge Disposition: Home or Self Care 05/06/2025 5:57 AM EDT - 05/06/2025 9:04 AM EDT Emergency [facility] Emergency [address] [place] [address] Don Palomares MD Discharge Disposition: Home or [...] housing (staying in a hotel, in a [place], living outside on the street, on a [...] this topic Medical Devices Implanted Type Area Brick Pointer Device Identifier Shelf Expiration Date Model / Serial / Lot Nodata Implanted:Qty: 4 NODATA Description: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 PHOSPHORUS 2.8 2.7 - 4.5 mg/dL [facility] Blood 06/19/2025 8:21 AM EDT 06/19/2025 8:26 AM EDT us Aracelis Durant MD LAB BLOOD BKR ORDERABLES Final Result Performing Organization Address [facility] Co de Phone Number [address] [address] * (ABNORMAL) Magnesium (06/19/2025 8:21 AM EDT) Only the most recent of13 resultswithin the time period is included. Pathologist [facility] MAGNESIUM 1.4(L) 1.6 - 2.6 mg/dL [facility] Blood 06/19/2025 8:21 AM EDT 06/19/2025 8:26 AM EDT us Aracelis Durant MD LAB BLOOD BKR ORDERABLES Final Result Performing Organization Address City/[facility] Co de Phone Number [address] [address] * (ABNORMAL) Basic metabolic panel (06/19/2025 8:21 AM EDT) Only the most recent of15 resultswithin the time period is included. SODIUM 132(L) 133 - 146 mmol/L [facility] CHLORIDE 93(L) 96 - 108 mmol/L [facility] POTASSIUM 4.0 3.3 - 5.1 mmol/L [facility] CO2 29 21 - 35 mmol/L [facility] BUN 6 6 - 19 mg/dL [facility] CREATININE 0.50 0.5 - 1.5 mg/dL [facility] GLUCOSE 114(H) 70 - 99 mg/dL [facility] CALCIUM 8.5 8.4 - 10.3 mg/dL [facility] EGFR 117 >59 mL/min/1.7 3m2 [facility] Comment:Estimated glomerular filtration rate calculated using the CKD-EPI refit equation. ANION GAP 14 10 - 20 mmol/L [facility] Blood 06/19/2025 8:21 AM EDT 06/19/2025 8:26 AM EDT us Aracelis Durant MD LAB BLOOD BKR ORDERABLES Final Result Performing Organization Address City/[facility]/ZIP Co de Phone Number [address] [address] * Sodium, random urine (06/18/2025 7:28 AM EDT) Only the most recent of2 resultswithin the time period is included. URINE SODIUM <20 mmol/L [facility] Urine (Urine) 06/18/2025 7:2 8 AM EDT 06/18/2025 1:11 PM EDT us Yves Judd MD LAB URINE ORDERAB LES Final Result Performing Organization Address City/[facility]/ZIP Co de Phone Number [address] [address] * Osmolality, Random Urine (06/18/2025 7:28 AM EDT) Only the most recent of2 resultswithin the time period is included. URINE OSMOLALITY 233 mOsm/kg water [facility] Urine (Urine) 06/18/2025 7:2 8 AM EDT 06/18/2025 1:11 PM EDT us Yves Judd MD LAB URINE ORDERAB LES Final Result Performing Organization Address City/[facility]/ZIP Co de Phone Number [address] [address] * (ABNORMAL) Osmolality, serum (06/17/2025 11:28 AM EDT) Only the most recent of2 resultswithin the time period is included. OSMOLALITY 261(L) 289 - 308 mOsm/kg water [facility] Blood 06/17/2025 11:2 8 AM EDT 06/17/2025 11:32 AM EDT us Yves Judd MD LAB BLOOD BKR ORD ERABLES Final Result Performing Organization Address [facility] Co de Phone Number [address] [address] * ECG 12-LEAD (06/17/2025 11:15 AM EDT) Only the most recent of4 resultswithin the time period is included. Ventricular Rate EKG/MIN 108 BPM [facility] Atrial Rate 108 BPM [facility] NE Interval 166 ms [facility] QRS Duration 64 ms [facility] QT Interval 362 ms [facility] QTC Interval 485 ms [facility] P [place] 59 degrees [facility] R Wave [place] 12 degrees [facility] T Wave [place] 51 degrees [facility] 06/17/2025 11:1 5 AM EDT 06/18/2025 8:28 AM EDT Narrative [facility] - 06/18/2025 8:28 AM EDT Sinus tachycardia Otherwise normal ECG When compared with ECG of 27-May-2025 04:32, No significant change was found Confirmed by Stone Nava ([id number]) on 06/18/2025 8:28:25 AM us Carlos Downs MD ECG ORDERABLES Final Result Performing Organization Address [facility] Co de Phone Number [facility] * (ABNORMAL) LFTs (hepatic panel) (06/17/2025 8:48 AM EDT) Only the most recent of5 resultswithin the time period is included. Pathologist [facility] ALKALINE PHOSPHATASE 121(H) 39 - 117 U/L [facility] TOTAL BILIRUBIN 0.8 0.0 - 1.2 mg/dL [facility] DIRECT BILIRUBIN 0.4(H) 0.0 - 0.2 mg/dL [facility] Bilirubin (Indirect) 0.4 0 - 1.5 mg/dL [facility] AST 29 0 - 37 U/L [facility] ALT 12 0 - 40 U/L [facility] TOTAL PROTEIN 5.8(L) 6.5 - 8.0 g/dL [facility] ALBUMIN 2.8(L) 3.9 - 4.8 g/dL [facility] GLOBULIN 3.0 1 - 4.8 g/dL [facility] A/G Ratio 0.93(L) 1.00 - 4.80 RATIO [facility] Blood 06/17/2025 8:48 AM EDT 06/17/2025 8:51 AM EDT us Carlos Downs MD LAB BLOOD BKR ORDERABLES Final R esult [facility] [address] [place], [place] [id number] * (ABNORMAL) CBC and differential (06/17/2025 8:48 AM EDT) Only the most recent of4 resultswithin the time period is included. Pathologist [facility] WBC 8.46 4.00 - 11.00 K/uL [facility] RBC 4.33(L) 4.50 - 5.90 M/uL [facility] HGB 14.3 13.5 - 17.5 g/dL [facility] HCT 39.8(L) 41.0 - 53.0 % [facility] PLT 161 150 - 450 K/uL [facility] Comment:checked MCV 91.9 80.0 - 100.0 fL [facility] MCH 33.0(H) 27.0 - 31.0 pg [facility] MCHC 35.9 32.0 - 36.0 g/dL [facility] RDW 15.1(H) 11.5 - 14.5 % [facility] MPV 10.1 8.4 - 12.0 fL [facility] NRBC 0.00 0.00 /100 WBCs [facility] ABSOLUTE NRBC 0.00 0.00 K/uL [facility] DIFF METHOD Auto [facility] NEUTS 68.0 48.0 - 76.0 % [facility] LYMPHS 16.8(L) 18.0 - 41.0 % [facility] MONOS 13.7(H) 4.0 - 11.0 % [facility] EOS 0.9 0.0 - 5.0 % [facility] BASOS 0.2 0.0 - 1.5 % [facility] Granulocytes, immature (%) 0.4 0.0 - 0.9 % [facility] ABSOLUTE NEUTS 5.75 1.92 - 7.60 K/uL [facility] ABSOLUTE LYMPHS 1.42 0.72 - 4.10 K/uL [facility] ABSOLUTE MONOS 1.16(H) 0.16 - 1.10 K/uL [facility] ABSOLUTE EOS 0.08 0.00 - 0.50 K/uL [facility] ABSOLUTE BASOS 0.02 0.00 - 0.15 K/uL [facility] Granulocytes, immature 0.03 0.00 - 0.09 K/uL [facility] Blood 06/17/2025 8:48 AM EDT 06/17/2025 8:51 AM EDT us Carlos Downs MD LAB BLOOD BKR ORDERABLES Final R esult Performing Organization Address City/State/[facility] Co de Phone Number [address] [address] * Lactate (06/03/2025 8:02 AM EDT) Only the most recent of3 resultswithin the time period is included. LACTATE 2.00 0.50 - 2.20 mmol/L [facility] Blood 06/03/2025 8:02 AM EDT 06/03/2025 8:10 AM EDT us Miko Mandel DO LAB BLOOD BKR ORDERABLES Nimisha l Result Performing Organization Address [facility] Co de Phone Number [address] [address] * COVID Pandemic Respiratory Viral Order (PRO) (06/03/2025 5:40 AM EDT) Test Ordered Rapid COVID has been ordered [facility] Specimen Source/Description NASAL [facility] SARS-CoV 2 (COVID-19) PCR Not Detected Not Detected [facility] Comment: SARS-CoV-2 not detected Negative results do not preclude SARS-CoV-2 infection and should not be used as the sole basis for patient management decisions. Negative results must be combined with clinical observations, patient history, and epidemiological information. Other (Nasopharyngeal swab) 06/03/2025 5:40 AM EDT 06/03/2025 5:44 AM EDT us Zaarly LAB GENERAL ORDERABLES Final Result Performing Organization Address [facility] Co de Phone Number [address] [address] * (ABNORMAL) Ethanol, blood (06/03/2025 3:19 AM EDT) Only the most recent of2 resultswithin the time period is included. ETHANOL 144(H) <10 mg/dL [facility] Blood 06/03/2025 3:19 AM EDT 06/03/2025 3:25 AM EDT us Zaarly LAB BLOOD BKR ORDERABLES Nimisha l Result Performing Organization Address [facility] Co de Phone Number [address] [address] * Blood Culture, Routine (06/03/2025 3:19 AM EDT) Only the most recent of2 resultswithin the time period is included. Special Requests None 06/03/2025 2:28 AM EDT [facility] BLOOD CULTURE NO GROWTH 5 DAYS 06/08/2025 3:40 AM EDT [facility] Blood (Blood) 06/03/2025 3:1 9 AM EDT 06/03/2025 3:26 AM EDT us Miko Mandel DO LAB MICROBIOLOGY CULTURE NICOLAS EDWARDS Final Result Performing Organization Address City/[facility]/ZIP Co de Phone Number [address] [address] * (ABNORMAL) CBC (05/29/2025 6:23 AM EDT) Only the most recent of3 resultswithin the time period is included. WBC 5.80 4.00 - 11.00 K/uL [facility] RBC 3.99(L) 4.50 - 5.90 M/uL [facility] HGB 13.2(L) 13.5 - 17.5 g/dL [facility] HCT 40.4(L) 41.0 - 53.0 % [facility] PLT 172 150 - 450 K/uL [facility] MCV 101.3(H) 80.0 - 100.0 fL [facility] MCH 33.1(H) 27.0 - 31.0 pg [facility] MCHC 32.7 32.0 - 36.0 g/dL [facility] RDW 15.8(H) 11.5 - 14.5 % [facility] MPV 10.2 8.4 - 12.0 fL [facility] NRBC 0.00 0.00 /100 WBCs [facility] ABSOLUTE NRBC 0.00 0.00 K/uL [facility] Blood 05/29/2025 6:23 AM EDT 05/29/2025 7:16 AM EDT us Lissa Reynoso NP LAB BLOOD BKR ORDERABLES Final Result Performing Organization Address City/[facility]/ZIP Co de Phone Number [address] [address] * (ABNORMAL) Comprehensive metabolic panel (05/28/2025 3:53 AM EDT) SODIUM 128(L) 133 - 146 mmol/L [facility] POTASSIUM 2.8(L) 3.3 - 5.1 mmol/L [facility] CHLORIDE 91(L) 96 - 108 mmol/L [facility] CO2 27 21 - 35 mmol/L [facility] BUN 5(L) 6 - 19 mg/dL [facility] CREATININE 0.50 0.5 - 1.5 mg/dL [facility] GLUCOSE 106(H) 70 - 99 mg/dL [facility] ALBUMIN 2.8(L) 3.9 - 4.8 g/dL [facility] TOTAL PROTEIN 5.6(L) 6.5 - 8.0 g/dL [facility] CALCIUM 7.8(L) 8.4 - 10.3 mg/dL [facility] ALKALINE PHOSPHATASE 125(H) 39 - 117 U/L [facility] TOTAL BILIRUBIN 0.6 0.0 - 1.2 mg/dL [facility] AST 35 0 - 37 U/L [facility] ALT 16 0 - 40 U/L [facility] GLOBULIN 2.8 1 - 4.8 g/dL [facility] EGFR 117 >59 mL/min/1.7 3m2 [facility] Comment:Estimated glomerular filtration rate calculated using the CKD-EPI refit equation. ANION GAP 13 10 - 20 mmol/L [facility] Blood 05/28/2025 3:53 AM EDT 05/28/2025 4:08 AM EDT us Silvio Bullock MD LAB BLOOD BKR ORDERABLES Final Result [facility] [address], [place] [id number] * Lab Add On: urine sodium, urine osmo (05/27/2025 11:50 AM EDT) TEST REQUESTED URINE SODIUM, URINE OSMO [facility] Comments (Chemistry) Add on order being processed. Floor or provider will be notified if testing cannot be performed [facility] 05/27/2025 11:5 0 AM EDT 05/27/2025 12:04 PM EDT us Lissa Reynoso TRAVEL ACCOMMODATION INSPECTOR LAB BLOOD ORDERABLES Fin al Result Performing Organization Address [facility]/ZIP Co de Phone Number [address] [address] * TSH with reflex (05/27/2025 8:59 AM EDT) TSH 1.61 0.27 - 4.20 uIU/mL [facility] Blood 05/27/2025 8:59 AM EDT 05/27/2025 9:09 AM EDT us Lissa Reynoso TRAVEL ACCOMMODATION INSPECTOR LAB BLOOD BKR ORDERABLES Final Result Performing Organization Address [facility] Co de Phone Number [address] [address] * (ABNORMAL) Ionized calcium (05/27/2025 8:59 AM EDT) IONIZED CALCIUM 1.12(L) 1.14 - 1.37 mmol/L [facility] Blood 05/27/2025 8:59 AM EDT 05/27/2025 9:09 AM EDT us Lissa Reynoso TRAVEL ACCOMMODATION INSPECTOR LAB BLOOD BKR ORDERABLES Final Result Performing Organization Address [facility] Co de Phone Number [address] [address] * Urinalysis w/reflex Urine Culture (05/27/2025 7:29 AM EDT) COLOR Yellow Yellow [facility] CLARITY Clear [facility] GLUCOSE Negative Negative [facility] BILI Negative Negative [facility] KETONES Negative Negative [facility] SPECIFIC GRAVITY <1.005 1.005 - 1.030 [facility] BLOOD Negative Negative [facility] PH 6.0 5.0 - 8.0 [facility] Protein-UA Negative Negative [facility] NITRITE Negative Negative [facility] Leukocyte esterase, ur Negative Negative [facility] Urine (Urine) 05/27/2025 7:2 9 AM EDT 05/27/2025 7:47 AM EDT us Chuyita Meneses MD LAB URINE ORDERABLES Final R esult Performing Organization Address City/[facility]/ZIP Co de Phone Number [address] [address] * (ABNORMAL) POCT Glucose (05/13/2025 10:34 PM EDT) Glucose, POCT 184(H) 70 - 100 mg/dL [facility] 05/13/2025 10:3 4 PM EDT 05/13/2025 10:37 PM EDT us Miko Mandel DO POINT OF CARE TEST ORDERABLES Final Result Performing Organization Address [facility] Co de Phone Number [address] [address] * XR ELBOW 3 OR MORE VIEWS [...] clinician's provided indication for this examination in [facility]: S/P Fall COMPARISON: Elbow radiographs 05/06/2025. Procedure Note Melvin Haile MD - 05/10/2025 XR ELBOW 3 OR MORE VIEWS (RIGHT) Referring clinician's provided indication for this examination in [facility]:S/P Fall COMPARISON: Elbow radiographs 05/06/2025. IMPRESSION: [...] clinician's provided indication for this examination in [facility]: S/P Fall COMPARISON: Right knee radiographs 05/06/2025 and relevant prior exams. Procedure Note Melvin Haile MD - 05/10/2025 XR KNEE 3 VIEW (RIGHT) Referring clinician's provided indication for this examination in [facility]:S/P Fall COMPARISON: Right knee radiographs 05/06/2025 and relevant prior exams. IMPRESSION: FINDINGS/IMPRESSION: No displaced fracture or malalignment of the knee. No suprapatellareffusion. us Miko Mandel DO IMG XR LOWER EXTREMITY Final Result * Lipase (05/07/2025 7:17 AM EDT) LIPASE 37 16 - 63 U/L [facility] Blood 05/07/2025 7:17 AM EDT 05/07/2025 7:24 AM EDT us Don Palomares MD LAB BLOOD BKR ORDERABLES Final Result [facility] [address] [place] [address] * XR KNEE 4 OR MORE VIEWS [...] clinician's provided indication for this examination in [facility]: Pain COMPARISON: XR KNEE 4 OR [...] clinician's provided indication for this examination in [facility]:Pain COMPARISON: XR KNEE 4 OR MORE [...] clinician's provided indication for this examination in [facility]: Pain COMPARISON: XR KNEE 4 OR [...] clinician's provided indication for this examination in [facility]:Pain COMPARISON: XR KNEE 4 OR MORE [...] clinician's provided indication for this examination in [facility]: Pain COMPARISON: None Procedure Note Marija Elliott MD - 05/06/2025 XR ELBOW 3 OR MORE VIEWS (RIGHT) Referring clinician's provided indication for this examination in [facility]:Pain COMPARISON: None IMPRESSION: Displaced nonacute olecranon fracture. No dislocation. No effusion. Nosoft tissue swelling. Óscar Garcia MD IMG XR UPPER EXTREMITY Final Re sult * Hepatitis C antibody, qualitative (03/30/2025 4:33 AM EDT) HCV NON-REACTIV E NON-REACTI VE [facility] Blood 03/30/2025 4:33 AM EDT 03/30/2025 4:39 AM EDT Dayana Bates PA-C, MPH LAB BLOOD BKR ORDER ABEL Final Result [address] [address] from Last 3 Months or Most Recently Relevant to Health Maintenance Insurance [facility] MEDICARE REPLACEMENT [facility] MEDICARE REPLACEMENT Advance Directives For more information, please contact: [phone] (9AM - 5PM [place], Thursday-Thursday) Documents on File Type Date Recorded Patient Pyrometer Mechanic Expl anation Healthcare Proxy 04/06/2025 12:30 PM [...] Agent (Proxy form on file) Care Teams Wastewater Treatment Operator Relationship Specialty Start Date End Date Nancy Zamorano MD [address] [place] [address] PCP - General Family Medicine 05/08/25 Additional Source Comments The information contained in this document represents components of the legal health record. It is not the complete legal health record.[facility]
--- OUTSIDE RECORDS SUMMARY | 2025-07-15 21:27 | XMS_ITS | Encounter Summary ---
Author Organization [facility] Address [address] [place] [address] Phone Care Team Providers Care Flat Knitter Helper Name Role Phone Michaela Rey Primary Care Provider +- [phone] Lynsey Stauffer MD Primary Care Provid er Pcp, Unknown Primary Care Provider Nancy Swain MD Primary Care Provider + [phone] Encounter Details Date Type Department Care Team (Late st Contact Info) Description 03/29/2025 Procedure Pass [facility], Ct Scan - [address] [phone] Social History Tobacco Use Types Packs/Day Years [...] 8:00 AM EDT Hailee Cloud RN * [place] Suicide Severity Rating Scale (Screener/Recent Self-Report) Question [...] documented as of this encounter Care Teams Flat Knitter Helper Relationship Specialty Start Date End Date Michaela Rey PA [address] [place] [address] PCP - General Change Management Specialist 03/09/19 04/09/25 Lynsey Stauffer MD [address] [facility] [address] [address] [email or web address] PCP - General Cardiology 04/10/25 04/12/25 Pcp, Unknown PCP - General 04/13/25 05/07/25 Nancy Zamorano MD [address] [place] [address] PCP - General Family Medicine 05/08/25 documented as of this encounter Additional Source Comments The information contained in this document represents components of the legal health record. It is not the complete legal health record.[facility]
--- OUTSIDE RECORDS SUMMARY | 2025-07-15 21:27 | XMS_ITS | Encounter Summary ---
Author Organization [facility] Address [address] [facility] [address] [place] [address] Phone Care Team Providers Care Psychiatric Social Worker Name Role Phone Michaela Rey Primary Care Provider +- [phone] Lynsey Stauffer MD Primary Care Provid er Pcp, Unknown Primary Care Provider Nancy Swain MD Primary Care Provider + [phone] Encounter Details Date Type Department Care Team (Late st Contact Info) Description 06/27/2021 Procedure Pass [facility], Ct Scan - [address] [phone] Social History Tobacco Use Types Packs/Day Years [...] 3:09 AM EDT Shona Couch RN * [place] Suicide Severity Rating Scale (Screener/Recent Self-Report) Question [...] documented as of this encounter Care Teams Psychiatric Social Worker Relationship Specialty Start Date End Date Michaela Rey PA [address] [place] [address] PCP - General Load Dispatcher 03/09/19 04/09/25 Lynsey Stauffer MD [address] [facility] [address] [place] [address] [email or web address] PCP - General Cardiology 04/10/25 04/12/25 Pcp, Unknown PCP - General 04/13/25 05/07/25 Nancy Zamorano MD [address] [place] [address] PCP - General Family Medicine 05/08/25 documented as of this encounter Additional Source Comments The information contained in this document represents components of the legal health record. It is not the complete legal health record.[facility]
--- OUTSIDE RECORDS SUMMARY | 2025-07-15 21:27 | XMS_ITS | Encounter Summary ---
Author Organization [facility] Address [address] [facility] [facility] [address] [place] [address] Phone Care Team Providers Care Waffle Machine Operator Name Role Phone Michaela Rey Primary Care Provider +- [phone] Lynsey Stauffer MD Primary Care Provid er Pcp, Unknown Primary Care Provider Nancy Swain MD Primary Care Provider + [phone] Encounter Details Date Type Department Care Team (Late st Contact Info) Description 06/27/2021 Procedure Pass [facility], Ct Scan - [address] [phone] Social History Tobacco Use Types Packs/Day Years [...] 3:09 AM EDT Shona Couch RN * [place] Suicide Severity Rating Scale (Screener/Recent Self-Report) Question [...] documented as of this encounter Care Teams Waffle Machine Operator Relationship Specialty Start Date End Date Michaela Rey PA [address] [place] [address] PCP - General Landing Scaler 03/09/19 04/09/25 Lynsey Stauffer MD [address] [facility] [address] [place] [address] [email or web address] PCP - General Cardiology 04/10/25 04/12/25 Pcp, Unknown PCP - General 04/13/25 05/07/25 Nancy Zamorano MD [address] [place] [address] PCP - General Family Medicine 05/08/25 documented as of this encounter Additional Source Comments The information contained in this document represents components of the legal health record. It is not the complete legal health record.[facility]
--- OUTSIDE RECORDS SUMMARY | 2025-07-15 21:27 | XMS_ITS | Encounter Summary ---
Author Organization [facility] Address [address] [place] [address] [place] [address] Phone Care Team Providers Care Chief Librarian Circulation Department Name Role Phone Unknown, Unknown Primary Care Provider Iván Avalos MD Primary Care Provider [phone] Unknown, Unknown Primary Care Provider Michaela Braun Primary Care Provider [phone]- [phone] Lynsey Stauffer MD Primary Care Provid er Pcp, Unknown Primary Care Provider Nancy Swain MD Primary Care Provider + [phone] Encounter Details Date Type Department Care Team (Late st Contact Info) Description 08/28/2017 Procedure Pass [facility], Ct Scan - [address] [address] Social History Tobacco Use Types Packs/Day Years [...] documented as of this encounter Care Teams Chief Librarian Circulation Department Relationship Specialty Start Date End Date Unknown, Kimberly, PCP - General 08/11/17 10/23/17 Iván Mcgrath MD [email or web address] PCP - General Internal Medicine 10/24/17 12/08/17 Unknown, Unknown, PCP - General 12/09/17 03/08/19 Michaela Rey PA [address] [place] [id number] PCP - General Golf Teacher 03/09/19 04/09/25 Lynsey Stauffer MD [address] [place] [address] [address] [place] [address] [email or web address] PCP - General Cardiology 04/10/25 04/12/25 Pcp, Unknown PCP - General 04/13/25 05/07/25 Nancy Zamorano MD [address] [place] [address] PCP - General Family Medicine 05/08/25 documented as of this encounter Additional Source Comments The information contained in this document represents components of the legal health record. It is not the complete legal health record.[facility]
--- OUTSIDE RECORDS SUMMARY | 2025-07-15 21:27 | XMS_ITS | Encounter Summary ---
Author Organization [facility] Address [address] [facility] [address] [place] [address] Phone Care Team Providers Care Photographic Spotter Name Role Phone Unknown, Unknown Primary Care Provider Michaela Braun Primary Care Provider [phone] Lynsey Stauffer MD Primary Care Provid er Pcp, Unknown Primary Care Provider Nancy Swain MD Primary Care Provider Encounter Details Date Type Department Care Team (Late st Contact Info) Description 06/01/2018 Transcribe Orders [facility] Specimen Processing [address] [place] [address] Mina Soriano, DO [address] [facility] [place] [address] [place] [address] [email or web address] Health examination of prisoner (Primary Dx) Social [...] EDT) WBC 8.78 3.40 - 11.20 K/uL [facility] RBC 5.58(H) 4.50 - 5.50 M/uL [facility] HGB 17.0 13.0 - 17.0 g/dL [facility] HCT 52.7(H) 40.0 - 51.0 % [facility] PLT 339 130 - 400 K/uL [facility] MCV 94.4 79.0 - 98.0 fL [facility] MCH 30.5 27.0 - 34.8 pg [facility] MCHC 32.3 31.5 - 36.0 g/dL [facility] RDW 14.5 10.8 - 14.6 % [facility] MPV 10.3 9.4 - 12.4 fl [facility] NRBC 0.00 /100 WBCs [facility] ABSOLUTE NRBC 0.00 K/uL [facility] Blood 06/02/2018 10:2 1 AM EDT 06/02/2018 3:19 PM EDT us Mina A Bigda DO LAB BLOOD BKR ORDERABLES Final R esult Performing Organization Address City/State/[facility] Co de Phone Number [address] [address] documented in this encounter Visit Diagnoses Diagnosis Health examination of prisoner- Primary Health examination of defined subpopulation documented in this encounter Additional Health Concerns Infection Onset Date Last Indicated Resolved Time CoV-Risk 06/03/2025 06/03/2025 06/14/2025 1:21 AM EDT documented as of this encounter Care Teams Photographic Spotter Relationship Specialty Start Date End Date Unknown, Unknown, PCP - General 12/09/17 03/08/19 Michaela Rey PA [address] [place] [address] PCP - General Statistical Reporting Analyst 03/09/19 04/09/25 Lynsey Stauffer MD [address] [facility] [address] [place] [address] [email or web address] PCP - General Cardiology 04/10/25 04/12/25 Pcp, Unknown PCP - General 04/13/25 05/07/25 Nancy Zamorano MD [address] [place] [address] PCP - General Family Medicine 05/08/25 documented as of this encounter Additional Source Comments The information contained in this document represents components of the legal health record. It is not the complete legal health record.[facility]
--- OUTSIDE RECORDS SUMMARY | 2025-07-15 21:27 | XMS_ITS | Encounter Summary ---
Author Organization [facility] Address [address] [facility] [address] [facility] [address] [place] [address] Phone Care Team Providers Care Sap Portal Consultant Name Role Phone Michaela Rey Primary Care Provider [phone]- [phone] Lynsey Stauffer MD Primary Care Provid er Pcp, Unknown Primary Care Provider Nancy Swain MD Primary Care Provider + [phone] Encounter Details Date Type Department Care Team (Late st Contact Info) Description 03/29/2025 Procedure Pass [facility], Ct Scan - [address] [id number] Social History Tobacco Use Types Packs/Day Years [...] 8:00 AM EDT Hailee Cloud RN * [place] Suicide Severity Rating Scale (Screener/Recent Self-Report) Question [...] documented as of this encounter Care Teams Sap Portal Consultant Relationship Specialty Start Date End Date Michaela Rey PA [address] [place] [address] PCP - General Press Pipe Inspector 03/09/19 04/09/25 Lynsey Stauffer MD [address] [facility] [address] [place] [address] [email or web address] PCP - General Cardiology 04/10/25 04/12/25 Pcp, Unknown PCP - General 04/13/25 05/07/25 Nancy Zamorano MD [address] [place] [address] PCP - General Family Medicine 05/08/25 documented as of this encounter Additional Source Comments The information contained in this document represents components of the legal health record. It is not the complete legal health record.[facility]
--- OUTSIDE RECORDS SUMMARY | 2025-07-15 21:27 | XMS_ITS | Encounter Summary ---
Author Organization [facility] Address [address] [place] [address] [place] [address] Phone Care Team Providers Care Cullet Trucker Name Role Phone Unknown, Unknown Primary Care Provider Iván Avalos MD Primary Care Provider [phone] Unknown, Unknown Primary Care Provider Michaela Braun Primary Care Provider [phone] Lynsey Stauffer MD Primary Care Provid er Pcp, Unknown Primary Care Provider Nancy Swain MD Primary Care Provider + [phone] Encounter Details Date Type Department Care Team (Late st Contact Info) Description 08/28/2017 Procedure Pass [facility], Ct Scan - [address] [address] Social History Tobacco Use Types Packs/Day Years [...] documented as of this encounter Care Teams Cullet Trucker Relationship Specialty Start Date End Date Unknown, Kimberly, PCP - General 08/11/17 10/23/17 Iván Mcgrath MD [email or web address] PCP - General Internal Medicine 10/24/17 12/08/17 Unknown, Unknown, PCP - General 12/09/17 03/08/19 Michaela Rey PA [address] [place] [address] PCP - General Dispensing Optician Apprentice 03/09/19 04/09/25 Lynsey Stauffre MD [address] [place] [address] [address] [place] [address] [email or web address] PCP - General Cardiology 04/10/25 04/12/25 Pcp, Unknown PCP - General 04/13/25 05/07/25 Nancy Zamorano MD [address] [place] [address] PCP - General Family Medicine 05/08/25 documented as of this encounter Additional Source Comments The information contained in this document represents components of the legal health record. It is not the complete legal health record.[facility]
--- OUTSIDE RECORDS SUMMARY | 2025-07-15 21:27 | XMS_ITS | Encounter Summary ---
Author Organization [facility] Address [address] [facility] [address] [place] [address] Phone Care Team Providers Care Interactive Media Designer Name Role Phone Unknown, Unknown Primary Care Provider Michaela Braun Primary Care Provider [phone] Lynsey Stauffer MD Primary Care Provid er Pcp, Unknown Primary Care Provider Nancy Swain MD Primary Care Provider Encounter Details Date Type Department Care Team (Late st Contact Info) Description 09/01/2018 Transcribe Orders [facility] Specimen Processing [address] [place] [address] Mina Soriano, DO [address] [facility] [place] [address] [place] [address] [email or web address] Routine general medical examination at a health [...] EST) WBC 9.42 3.40 - 11.20 K/uL [facility] RBC 5.03 4.50 - 5.50 M/uL [facility] HGB 15.7 13.0 - 17.0 g/dL [facility] HCT 46.9 40.0 - 51.0 % [facility] PLT 335 130 - 400 K/uL [facility] MCV 93.2 79.0 - 98.0 fL [facility] MCH 31.2 27.0 - 34.8 pg [facility] MCHC 33.5 31.5 - 36.0 g/dL [facility] RDW 14.6 10.8 - 14.6 % [facility] MPV 9.8 9.4 - 12.4 [facility] NRBC 0.00 0.00 /100 WBCs [facility] ABSOLUTE NRBC 0.00 0.00 K/uL [facility] Blood 09/01/2018 9:54 AM EST 09/01/2018 11:50 AM EST us Mina A Bigda DO LAB BLOOD BKR ORDERABLES Final R esult Performing Organization Address City/State/[facility] Co de Phone Number [address] [address] documented in this encounter Visit Diagnoses Diagnosis Routine general medical examination at a health care facility- Primary documented in this encounter Additional Health Concerns Infection Onset Date Last Indicated Resolved Time CoV-Risk 06/03/2025 06/03/2025 06/14/2025 1:21 AM EDT documented as of this encounter Care Teams Interactive Media Designer Relationship Specialty Start Date End Date Unknown, Unknown, PCP - General 12/09/17 03/08/19 Michaela Rey PA [address] [place] [address] PCP - General Crm Marketing Executive 03/09/19 04/09/25 Lynsey Stauffer MD [address] [place] [address] [email or web address] PCP - General Cardiology 04/10/25 04/12/25 Pcp, Unknown PCP - General 04/13/25 05/07/25 Nancy Zamorano MD [address] [place] [address] PCP - General Family Medicine 05/08/25 documented as of this encounter Additional Source Comments The information contained in this document represents components of the legal health record. It is not the complete legal health record.[facility]
--- OUTSIDE RECORDS SUMMARY | 2025-07-15 21:27 | XMS_ITS | Encounter Summary ---
Author Organization [facility] Address [address] [place] [address] [place] [address] Phone Care Team Providers Care Outside Solar Sales Consultant Name Role Phone Michaela Rey Primary Care Provider [phone]- [phone] Lynsey Stauffer MD Primary Care Provid er Pcp, Unknown Primary Care Provider Nancy Swain MD Primary Care Provider [phone] Encounter Details Date Type Department Care Team (Late st Contact Info) Description 11/09/2019 Procedure Pass [place] Admitting Dept - Virtual Department [address] [place] [address] Social History Tobacco Use Types Packs/Day Years [...] documented as of this encounter Care Teams Outside Solar Sales Consultant Relationship Specialty Start Date End Date Michaela Rey PA [address] [place] [address] PCP - General Quality Control Auditor 03/09/19 04/09/25 Lynsey Stauffer MD [address] [facility] [address] [place] [address] [email or web address] PCP - General Cardiology 04/10/25 04/12/25 Pcp, Unknown PCP - General 04/13/25 05/07/25 Nancy Zamorano MD [address] [place] [address] PCP - General Family Medicine 05/08/25 documented as of this encounter Additional Source Comments The information contained in this document represents components of the legal health record. It is not the complete legal health record.[facility]
[2025-07-16 00:23] LABS: Appearance Urine Clear; Glucose Urine UA Negative (Negative); PH 6.0 (5.0-9.0); Specific Gravity - Urine 1.020 (1.005-1.025); UMIC TRIGGER UA YES
[2025-07-16 00:33] LABS: Cannabinoid Screen Urine Not Detected (Not Detect)
[2025-07-16 01:00] VITALS: BP 143/96; PULSE 100; RESP 14; TEMP 36.4; O2SAT 93
[2025-07-16 06:29] VITALS: BP 133/98; PULSE 100; RESP 16; TEMP 36.1; O2SAT 95
== END 2025-07-16 06:30 | disposition home or self-care (01) ==
PROVIDERS: Physician Assistant; Emergency Provider Emergency Medicine
DX: M25.562 Pain in left knee (principal); S52.021D Displaced fracture of olecranon process without intraarticular extension of right ulna, subsequent encounter for closed fracture with routine healing; W19.XXXD Unspecified fall, subsequent encounter
CPT/HCPCS: 36415; 70450; 73070; 73560; 73562; 73700; 80048; 80307; 81001; 83735; 85025; 96365; 96366; 96367; 99284; J3475; J3480

== ENCOUNTER → 2025-07-16 00:20 | Outpatient (BNV) | payer MEDICARE, SELFPAY | PROVIDERS: Emergency Provider Emergency Medicine; Visit Provider Radiology Diagnostic Radiology | DX: Z04.3 Encounter for examination and observation following other accident (principal) | CPT/HCPCS: 73560 ==

== ENCOUNTER 2025-07-16 08:02 | Emergency (ER) | payer MEDICARE, SELFPAY ==
[2025-07-16 08:10] VITALS: BP 130/81; PULSE 97; RESP 18; TEMP 36.6; O2SAT 100; BMI 23.0
--- NOTE | 2025-07-16 08:20 | ED_ITS ---
HPI - General Adult General Chief complaint: Extremity Injury, Lower Stated complaint: Just d/c checking in for same thing Time Seen by Provider: 07/16/25 08:20 Source: patient Mode of arrival: wheelchair Limitations: no limitations History of Present Illness ED Provider: Mary Lou Kramer PA-C HPI narrative: Patient is a 60 year old assigned male at with a history of alcohol use presenting to the emergency department today with continued left knee pain. Patient states that several months ago he fell down and injured his left elbow and left knee. Patient states that he was evaluated for these things on 07/15/2025 but the left knee pain persists. Patient states that his left elbow is broken but he continues to be able to use it. Patient denies any other complaints at this time. Related Data Previous Rx's ?Medication ?Instructions ?Recorded acetaminophen 500 mg tablet 500 mg PO Q6H PRN fever or pain 07/16/25 #20 tabs Allergies Allergy/AdvReac Type Severity Reaction Status Date / Time No Known Allergies Allergy Verified 07/16/25 08:11 Review of Systems Constitutional: Constitutional: Reports as per HPI Eyes: Eyes: Reports as per HPI ENT: Reports as per HPI Cardiovascular: Cardiovascular: Reports as per HPI Respiratory: Respiratory: Reports as per HPI Gastrointestinal: Gastrointestinal: Reports as per HPI Genitourinary: Genitourinary: Reports as per HPI Musculoskeletal: Musculoskeletal: Reports as per HPI Integumentary/Breasts: Skin/Breast: Reports as per HPI Neurologic: Reports as per HPI Psychiatric: Psychiatric: Reports as per HPI Endocrine: Endocrine: Reports as per HPI Hematologic/Lymphatic: Hematologic/Lymphatic: Reports as per HPI Allergic/Immunologic: Allergic/Immunologic: Reports as per HPI [facility] Past Medical History Attestation statement: The following information was validated with the patient. Source: old records reviewed and nursing notes reviewed Social History Social History Alcohol intake: current Alcohol intake frequency: 0-2 drinks per day Alcohol type: hard liquor Advance Directives: No Advance Directives Information Provided: No Do you have a plan to hurt others: No Plan Physical Exam ED Vital Signs: Vital Signs - 24 hr 07/16/25 08:10 07/16/25 08:55 Temperature 98 F 98 F Pulse Rate 97 97 Respiratory Rate 18 18 Blood Pressure 130/81 130/81 Pulse Oximetry 100 100 Oxygen Delivery Method Room Air Room Air BMI result Body Mass Index 23.0 Const General: cooperative, no acute distress, alert and awake Nutritional Appearance: well nourished Orientation/consciousness: patient oriented x3 HENMT Head: Yes normal to inspection and Yes atraumatic Ears: hearing grossly normal bilaterally and external ears normal General nose exam: Normal external nose present, no nasal discharge noted and no epistaxis Face and sinus: Yes normal facial exam, No abrasion and No laceration Mouth: Normal oral and palatal mucosa present, no drooling and no muffled voice Eyes General: appearance normal, both eyes and all related structures Periorbital: periorbital findings normal Eyelids: Yes eyelids normal Conjunctivae: conjunctivae normal Pupils: Equal, round and reactive pupils present EOM: EOMs intact bilaterally Neck Neck: Yes normal visual inspection and Yes full ROM Resp Effort & Inspection: normal respiratory effort and able to speak in complete sentences Neuro General: patient oriented x3, moves all extremities and CN's II-XI intact bilaterally Cranial nerves: Yes Equal, round and reactive pupils present Cognition (Neuro): normal cognition Extrem General: Yes normal to inspection, Yes full ROM and Yes capillary refill normal Psych Appearance: grossly normal Mental Status: mental status grossly normal Affect: normal affect Attitude: cooperative Thought process: Normal thought process present Thought content: Normal thought content present Insight: Good insight present (Psych) Medications Administered Discontinued Medications Generic Name Dose Route Start Last Admin Trade Name Freq PRN Reason Stop Dose Admin Ketorolac Tromethamine 15 mg 07/16/25 08:24 07/16/25 08:40 Ketorolac Tromethamine 15 Mg/Ml Vial IM 07/16/25 08:25 15 mg ONCE ONE Administration Medical Decision Making Medical Decision Making [facility] Narrative: Patient is a 60 year old assigned male at with a history of alcohol use presenting to the emergency department today with continued left knee pain. Patient's physical exam was as noted in the physical exam portion of this note. Patient had full range of motion of the left elbow and left knee. Patient's left knee x-ray from 07/16/2025 showed no acute process. Patient received IM Toradol which, upon re-evaluation, he stated it helped his pain some. I explained my physical exam findings as well as all test results to the patient. I answered all questions asked by the patient. I stressed the importance of the patient taking his medication as directed (either prescribed or as the over the counter packaging recommends). I stressed the importance of the patient following up with his primary care provider and the orthopedic team for his previously known left elbow fracture and his continued left knee pain. I stressed the importance of the patient returning to the emergency department immediately if his symptoms were to worsen or if he were to develop any dizziness, shortness of breath, difficulty breathing, chest pain, blurry vision, loss of vision, nausea, vomiting, abdominal pain, fever, chills, back pain, or any other complaints. Patient verbalized agreement and understanding with this treatment plan and discharge. Note: patient never left the building after his 2 emergency department visits on 07/15 + 07/16. Differential Diagnosis Differential Diagnoses: The differential diagnosis associated with the presentation includes Knee pain Arthritis Fall Admission/Observation Consideration of admission/observation: Escalation of care including admission/observation considered Patient would have been admitted to the hospital had his clinical presentation warranted hospital admission. Independent Interpretation I performed an independent interpretation of an: Plain X-Ray Interpretation: My interpretation is in agreement with the radiologist's impression of this imaging study. Reason for Exam: trauma CLINICAL HISTORY: trauma 2 views left knee Comparison: CR - XR KNEE LT 3V - 07/15/25 12:33 EST Findings: There is no fracture or dislocation. Joint spaces appear normal. There is no effusion. There is mild arterial calcification. Impression: No acute findings. This document has been electronically signed by: Jules Kiran MD on 07/16/2025 01:18:30 Dictated By: Jules Kiran MD Signed By: Electronically signed by Jules Kiran MD 07/16/25 0119 Discharge Plan Discharge Clinical Impression: Knee pain Patient Disposition: Home, Self-Care Instructions: Knee Pain (ED) Additional Instructions: Your left knee x-ray showed no acute bony process. You were given a dose of toradol while in the department. You should follow up with the orthopedic team for your chronic left knee pain and your previously known left elbow fracture/break. . IF you are prescribed home medications and/or you are taking over the counter medications at home - it is very important you continue to do so as prescribed / directed unless told otherwise. Follow up with a primary care provider. Return to the emergency department immediately if your symptoms worsen or if you develop any numbness, tingling, dizziness, shortness of breath, difficulty breathing, chest pain, blurry vision, loss of vision, nausea, vomiting, abdominal pain, fever, chills, back pain, or any other complaints. If you do not have a primary care provider - call any of the below numbers to establish and follow up with a primary care provider. [facility] Primary Care ([place]) [phone] [place] [address], [address] [facility] Primary Care ([address] [place]) [phone] [place] [address], [address] [facility], [address] [facility] Primary Care ([address] [place]) [phone] [place] [address], [address] [facility], [address] [facility] Primary Care ([place]) [phone] [place] [address] [address] [facility], [address] [facility] Family Medicine [phone] [place] [address], [address] Please see the information below about our Patient Portal. If you are not yet enrolled in the [facility] Patient Portal, you will receive an enrollment email invitation following your visit to any [facility] setting. You may also self-enroll in the Patient Portal by visiting our website: [email or web address] The following information is required to access the Patient Portal: - Your [facility] Medical Record Number - Your personal home email address (must match what is in your electronic medical record, Registration staff can assist with this) - Name - Date of Capabilities of the Patient Portal: - Message some providers - View upcoming appointments - Access your health summary, medical history, and visit history - View current conditions and allergies - View procedure and lab results - View your medications, including guidelines, side effects, and precautions - Complete pre-appointment questionnaires requested by your provider - Ready summary reports of your office visits and procedures To access the Patient Portal Mobile Adarsh, follow these directions: - Search [employer] in the Adarsh Store or Vindi Store - Download the Adarsh - Search for [facility] - Enter your login/password Prescriptions: No Action acetaminophen 500 mg tablet 500 mg PO Q6H PRN (Reason: fever or pain) Qty: 20 0RF Referrals: [facility] Orthopedic Surgeons [Provider Group] Referral Note: Call to establish and follow up with the orthopedic team. Interventions: ED Discharge Assessment Last Done: 07/16/25 08:55 Discharge Date/Time: 07/16/25 08:55 Print Language: Welsh
--- OUTSIDE RECORDS SUMMARY | 2025-07-16 08:32 | XMS_ITS | Encounter Summary ---
Author Organization [facility] Address [address] [place] [address] Phone Care Team Providers Care Tiller Worker Name Role Phone Michaela Rey Primary Care Provider +- [phone] Lynsey Stauffer MD Primary Care Provid er Pcp, Unknown Primary Care Provider Nancy Swain MD Primary Care Provider + [phone] Encounter Details Date Type Department Care Team (Late st Contact Info) Description 03/29/2025 Procedure Pass [facility], Ct Scan - [address] [id number] Social History Tobacco Use Types Packs/Day Years [...] 8:00 AM EDT Hailee Cloud RN * [place] Suicide Severity Rating Scale (Screener/Recent Self-Report) Question [...] documented as of this encounter Care Teams Tiller Worker Relationship Specialty Start Date End Date Michaela Rey PA [address] [place] [address] PCP - General Hardware Supplies Sales Representative 03/09/19 04/09/25 Lynsey Stauffer MD [address] [facility] [address] [place] [address] [email or web address] PCP - General Cardiology 04/10/25 04/12/25 Pcp, Unknown PCP - General 04/13/25 05/07/25 Nancy Zamorano MD [address] [place] [address] PCP - General Family Medicine 05/08/25 documented as of this encounter Additional Source Comments The information contained in this document represents components of the legal health record. It is not the complete legal health record.[facility]
--- OUTSIDE RECORDS SUMMARY | 2025-07-16 08:32 | XMS_ITS | Encounter Summary ---
Author Organization [facility] Address [address] [facility] [address] [place] [address] Phone Care Team Providers Care Conveyor Tender Concrete Mixing Plant Name Role Phone Michaela Rey Primary Care Provider +- [phone] Lynsey Stauffer MD Primary Care Provid er Pcp, Unknown Primary Care Provider Nancy Swain MD Primary Care Provider + [phone] Encounter Details Date Type Department Care Team (Late st Contact Info) Description 06/27/2021 Procedure Pass [facility], Ct Scan - [address] [id number] Social History Tobacco Use Types Packs/Day Years [...] 3:09 AM EDT Shona Couch RN * [place] Suicide Severity Rating Scale (Screener/Recent Self-Report) Question [...] documented as of this encounter Care Teams Conveyor Tender Concrete Mixing Plant Relationship Specialty Start Date End Date Michaela Rey PA [address] [place] [address] PCP - General Nutrition Club Ambassador 03/09/19 04/09/25 Lynsey Stauffer MD [address] [facility] [address] [place] [address] [email or web address] PCP - General Cardiology 04/10/25 04/12/25 Pcp, Unknown PCP - General 04/13/25 05/07/25 Nancy Zamorano MD [address] [place] [address] PCP - General Family Medicine 05/08/25 documented as of this encounter Additional Source Comments The information contained in this document represents components of the legal health record. It is not the complete legal health record.[facility]
--- OUTSIDE RECORDS SUMMARY | 2025-07-16 08:32 | XMS_ITS | Encounter Summary ---
Author Organization [facility] Address [address] [place] [address] [place] [address] Phone Care Team Providers Care Billing Department Supervisor Name Role Phone Michaela Rey Primary Care Provider +1- [phone] Lynsey Stauffer MD Primary Care Provid er Pcp, Unknown Primary Care Provider Nancy Swain MD Primary Care Provider +1 [phone] Encounter Details Date Type Department Care Team (Late st Contact Info) Description 11/09/2019 Procedure Pass [place] Admitting Dept - Virtual Department [address] [place] [address] Social History Tobacco Use Types Packs/Day Years [...] documented as of this encounter Care Teams Billing Department Supervisor Relationship Specialty Start Date End Date Michaela Rey PA [address] [place] [address] PCP - General Department Sales Manager 03/09/19 04/09/25 Lynsey Stauffer MD [address] [facility] [address] [place] [address] [email or web address] PCP - General Cardiology 04/10/25 04/12/25 Pcp, Unknown PCP - General 04/13/25 05/07/25 Nancy Zamorano MD [address] [place] [address] PCP - General Family Medicine 05/08/25 documented as of this encounter Additional Source Comments The information contained in this document represents components of the legal health record. It is not the complete legal health record.[facility]
--- OUTSIDE RECORDS SUMMARY | 2025-07-16 08:32 | XMS_ITS | Encounter Summary ---
Author Organization [facility] Address [address] [facility] [address] [place] [address] Phone Care Team Providers Care Shorthand Teacher Name Role Phone Unknown, Unknown Primary Care Provider Michaela Braun Primary Care Provider [phone]- [phone] Lynsey Stauffer MD Primary Care Provid er Pcp, Unknown Primary Care Provider Nancy Swain MD Primary Care Provider Encounter Details Date Type Department Care Team (Late st Contact Info) Description 09/01/2018 Transcribe Orders [facility] Specimen Processing [address] [place] [address] Mina Soriano, DO [address] [facility] [address] [place] [address] [email or web address] Routine general medical examination at a health [...] EST) WBC 9.42 3.40 - 11.20 K/uL [facility] RBC 5.03 4.50 - 5.50 M/uL [facility] HGB 15.7 13.0 - 17.0 g/dL [facility] HCT 46.9 40.0 - 51.0 % [facility] PLT 335 130 - 400 K/uL [facility] MCV 93.2 79.0 - 98.0 fL [facility] MCH 31.2 27.0 - 34.8 pg [facility] MCHC 33.5 31.5 - 36.0 g/dL [facility] RDW 14.6 10.8 - 14.6 % [facility] MPV 9.8 9.4 - 12.4 [facility] NRBC 0.00 0.00 /100 WBCs [facility] ABSOLUTE NRBC 0.00 0.00 K/uL [facility] Blood 09/01/2018 9:54 AM EST 09/01/2018 11:50 AM EST us Mina A Bigda DO LAB BLOOD BKR ORDERABLES Final R esult Performing Organization Address City/State/[facility] Co de Phone Number [address] [address] documented in this encounter Visit Diagnoses Diagnosis Routine general medical examination at a health care facility- Primary documented in this encounter Additional Health Concerns Infection Onset Date Last Indicated Resolved Time CoV-Risk 06/03/2025 06/03/2025 06/14/2025 1:21 AM EDT documented as of this encounter Care Teams Shorthand Teacher Relationship Specialty Start Date End Date Unknown, Unknown, PCP - General 12/09/17 03/08/19 Michaela Rey PA [address] [place] [address] PCP - General Mechanic'S Assistant 03/09/19 04/09/25 Lynsey Stauffer MD [address] [place] [address] [email or web address] PCP - General Cardiology 04/10/25 04/12/25 Pcp, Unknown PCP - General 04/13/25 05/07/25 Nancy Zamorano MD [address] [place] [address] PCP - General Family Medicine 05/08/25 documented as of this encounter Additional Source Comments The information contained in this document represents components of the legal health record. It is not the complete legal health record.[facility]
--- OUTSIDE RECORDS SUMMARY | 2025-07-16 08:32 | XMS_ITS | Encounter Summary ---
Author Organization [facility] Address [address] [place] [address] Phone Care Team Providers Care Finisher Special Stocks Name Role Phone Michaela Rey Primary Care Provider +- [phone] Lynsey Stauffer MD Primary Care Provid er Pcp, Unknown Primary Care Provider Nancy Swain MD Primary Care Provider + [phone] Encounter Details Date Type Department Care Team (Late st Contact Info) Description 03/29/2025 Procedure Pass [facility], Ct Scan - [address] [phone] Social History Tobacco Use Types Packs/Day Years [...] 8:00 AM EDT Hailee Cloud RN * [place] Suicide Severity Rating Scale (Screener/Recent Self-Report) Question [...] documented as of this encounter Care Teams Finisher Special Stocks Relationship Specialty Start Date End Date Michaela Rey PA [address] [place] [address] PCP - General Obstetrician Gynecologist 03/09/19 04/09/25 Lynsey Stauffer MD [address] [facility] [address] [place] [address] [email or web address] PCP - General Cardiology 04/10/25 04/12/25 Pcp, Unknown PCP - General 04/13/25 05/07/25 Nancy Zamorano MD [address] [place] [address] PCP - General Family Medicine 05/08/25 documented as of this encounter Additional Source Comments The information contained in this document represents components of the legal health record. It is not the complete legal health record.[facility]
--- OUTSIDE RECORDS SUMMARY | 2025-07-16 08:32 | XMS_ITS | Encounter Summary ---
Author Organization [facility] Address [address] [facility] [address] [place] [address] Phone Care Team Providers Care Ribbon Blockmaker Name Role Phone Michaela Rey Primary Care Provider +- [phone] Lynsey Stauffer MD Primary Care Provid er Pcp, Unknown Primary Care Provider Nancy Swain MD Primary Care Provider + [phone] Encounter Details Date Type Department Care Team (Late st Contact Info) Description 06/27/2021 Procedure Pass [facility], Ct Scan - [address] [phone] Social History Tobacco Use Types Packs/Day Years [...] 3:09 AM EDT Shona Couch RN * [place] Suicide Severity Rating Scale (Screener/Recent Self-Report) Question [...] documented as of this encounter Care Teams Ribbon Blockmaker Relationship Specialty Start Date End Date Michaela Rey PA [address] [place] [address] PCP - General Algebraist 03/09/19 04/09/25 Lynsey Stauffer MD [address] [facility] [address] [place] [address] [email or web address] PCP - General Cardiology 04/10/25 04/12/25 Pcp, Unknown PCP - General 04/13/25 05/07/25 Nancy Zamorano MD [address] [place] [address] PCP - General Family Medicine 05/08/25 documented as of this encounter Additional Source Comments The information contained in this document represents components of the legal health record. It is not the complete legal health record.[facility]
--- OUTSIDE RECORDS SUMMARY | 2025-07-16 08:32 | XMS_ITS | Encounter Summary ---
Author Organization [facility] Address [address] [facility] [address] [place] [address] Phone Care Team Providers Care Measuring Machine Operator Name Role Phone Unknown, Unknown Primary Care Provider Michaela Braun Primary Care Provider [phone]- [phone] Lynsey Stauffer MD Primary Care Provid er Pcp, Unknown Primary Care Provider Nancy Swain MD Primary Care Provider Encounter Details Date Type Department Care Team (Late st Contact Info) Description 06/01/2018 Transcribe Orders [facility] Specimen Processing [address] [place] [address] Mina Soriano, DO [address] [facility] [place] [address] [place] [address] [email or web address] Health examination of prisoner (Primary Dx) Social [...] EDT) WBC 8.78 3.40 - 11.20 K/uL [facility] RBC 5.58(H) 4.50 - 5.50 M/uL [facility] HGB 17.0 13.0 - 17.0 g/dL [facility] HCT 52.7(H) 40.0 - 51.0 % [facility] PLT 339 130 - 400 K/uL [facility] MCV 94.4 79.0 - 98.0 fL [facility] MCH 30.5 27.0 - 34.8 pg [facility] MCHC 32.3 31.5 - 36.0 g/dL [facility] RDW 14.5 10.8 - 14.6 % [facility] MPV 10.3 9.4 - 12.4 fl [facility] NRBC 0.00 /100 WBCs [facility] ABSOLUTE NRBC 0.00 K/uL [facility] Blood 06/02/2018 10:2 1 AM EDT 06/02/2018 3:19 PM EDT us Mina A Bigda DO LAB BLOOD BKR ORDERABLES Final R esult Performing Organization Address City/State/[facility] Co de Phone Number [address] [address] documented in this encounter Visit Diagnoses Diagnosis Health examination of prisoner- Primary Health examination of defined subpopulation documented in this encounter Additional Health Concerns Infection Onset Date Last Indicated Resolved Time CoV-Risk 06/03/2025 06/03/2025 06/14/2025 1:21 AM EDT documented as of this encounter Care Teams Measuring Machine Operator Relationship Specialty Start Date End Date Unknown, Unknown, PCP - General 12/09/17 03/08/19 Michaela Rey PA [address] [place] [address] PCP - General Stump Blower 03/09/19 04/09/25 Lynsey Stauffer MD [address] [facility] [address] [place] [address] [email or web address] PCP - General Cardiology 04/10/25 04/12/25 Pcp, Unknown PCP - General 04/13/25 05/07/25 Nancy Zamorano MD [address] [place] [address] PCP - General Family Medicine 05/08/25 documented as of this encounter Additional Source Comments The information contained in this document represents components of the legal health record. It is not the complete legal health record.[facility]
--- OUTSIDE RECORDS SUMMARY | 2025-07-16 08:32 | XMS_ITS | Encounter Summary ---
Author Organization [facility] Address [address] [facility] [address] [place] [address] Phone Care Team Providers Care Oil Furnace Installer Name Role Phone Michaela Rey Primary Care Provider [phone]- [phone] Lynsey Stauffer MD Primary Care Provid er Pcp, Unknown Primary Care Provider Nancy Swain MD Primary Care Provider + [phone] Encounter Details Date Type Department Care Team (Late st Contact Info) Description 06/27/2021 Procedure Pass [facility], Ct Scan - [address] [id number] Social History Tobacco Use Types Packs/Day Years [...] 3:09 AM EDT Shona Couch RN * [place] Suicide Severity Rating Scale (Screener/Recent Self-Report) Question [...] documented as of this encounter Care Teams Oil Furnace Installer Relationship Specialty Start Date End Date Michaela Rey PA [address] [place] [id number] PCP - General Chief Airline Radio Operator 03/09/19 04/09/25 Lynsey Stauffer MD [address] [facility] [address] [place] [address] [email or web address] PCP - General Cardiology 04/10/25 04/12/25 Pcp, Unknown PCP - General 04/13/25 05/07/25 Nancy Zamorano MD [address] [place] [id number] PCP - General Family Medicine 05/08/25 documented as of this encounter Additional Source Comments The information contained in this document represents components of the legal health record. It is not the complete legal health record.[facility]
--- OUTSIDE RECORDS SUMMARY | 2025-07-16 08:33 | XMS_ITS | Clinical Summary ---
Author Organization [facility] Address [address] [place] [address] Care Team Providers Care Institutional Commodity Analyst Name Role Phone Rhonda Sexton MD Primary Care Provider [phone] Source Comments PLEASE NOTE, if this patient [...] Drug Screen 09/07/2024 Depression Annual Screen 09/07/2024 Eps-[id number]-48 (2 - season) 2025 021 Imm-Influenza (#1) 2025 05/02/2015, 0 04/24/2014, 06/20/2013, Additional history exists Insurance [place] MEDICA[place] Member Subscriber Plan / Payer (Ef fective 2021-Present) Name:Shayne Dickey Relation to Subscriber:Self Name:Shayne iDckey Payer ID:[id number] Group ID:Not on file Type:Medicaid Address: [address] [id number] MEDICARE - [place] Care Teams Institutional Commodity Analyst Relationship Specialty Start Date End Date Rhonda Sexton MD [address] [place] [id number] PCP - General Internal Medicine 08/20/21
--- OUTSIDE RECORDS SUMMARY | 2025-07-16 08:33 | XMS_ITS | Encounter Summary ---
Author Organization [facility] Address [address] [place] [address] [place] [phone] Phone Care Team Providers Care Commercial Review Appraiser Name Role Phone Unknown, Unknown Primary Care Provider Iván Avalos MD Primary Care Provider [phone] Unknown, Unknown Primary Care Provider Michaela Braun Primary Care Provider [phone] Lynsey Stauffer MD Primary Care Provid er Pcp, Unknown Primary Care Provider Nancy Swain MD Primary Care Provider + [phone] Encounter Details Date Type Department Care Team (Late st Contact Info) Description 08/28/2017 Procedure Pass [facility], Ct Scan - [address] [address] Social History Tobacco Use Types Packs/Day Years [...] documented as of this encounter Care Teams Commercial Review Appraiser Relationship Specialty Start Date End Date Unknown, Kimberly, PCP - General 08/11/17 10/23/17 Iván Mcgrath MD [email or web address] PCP - General Internal Medicine 10/24/17 12/08/17 Unknown, Unknown, PCP - General 12/09/17 03/08/19 Michaela Rey PA [address] [place] [id number] PCP - General Senior Revenue Accountant 03/09/19 04/09/25 Lynsey Stauffer MD [address] [place] [address] [address] [place] [address] [email or web address] PCP - General Cardiology 04/10/25 04/12/25 Pcp, Unknown PCP - General 04/13/25 05/07/25 Nancy Zamorano MD [address] [place] [id number] PCP - General Family Medicine 05/08/25 documented as of this encounter Additional Source Comments The information contained in this document represents components of the legal health record. It is not the complete legal health record.[facility]
--- OUTSIDE RECORDS SUMMARY | 2025-07-16 08:33 | XMS_ITS | Encounter Summary ---
Author Organization [facility] Address [address] [place] [address] [place] [address] Phone Care Team Providers Care Insulation Worker Furnace Installer Name Role Phone Unknown, Unknown Primary Care Provider Iván Avalos MD Primary Care Provider [phone] Unknown, Unknown Primary Care Provider Michaela Braun Primary Care Provider [phone] Lynsey Stauffer MD Primary Care Provid er Pcp, Unknown Primary Care Provider Nancy Swain MD Primary Care Provider + [phone] Encounter Details Date Type Department Care Team (Late st Contact Info) Description 08/28/2017 Procedure Pass [facility], Ct Scan - [address] [address] Social History Tobacco Use Types Packs/Day Years [...] documented as of this encounter Care Teams Insulation Worker Furnace Installer Relationship Specialty Start Date End Date Unknown, Kimberly, PCP - General 08/11/17 10/23/17 Iván Mcgrath MD [email or web address] PCP - General Internal Medicine 10/24/17 12/08/17 Unknown, Unknown, PCP - General 12/09/17 03/08/19 Michaela Rey PA [address] [place] [id number] PCP - General Documentation Clerk 03/09/19 04/09/25 Lynsey Stauffer MD [address] [place] [address] [address] [place] [address] [email or web address] PCP - General Cardiology 04/10/25 04/12/25 Pcp, Unknown PCP - General 04/13/25 05/07/25 Nancy Zamorano MD [address] [place] [id number] PCP - General Family Medicine 05/08/25 documented as of this encounter Additional Source Comments The information contained in this document represents components of the legal health record. It is not the complete legal health record.[facility]
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
[2025-07-16 08:55] VITALS: BP 130/81; PULSE 97; RESP 18; TEMP 36.6; O2SAT 100
== END 2025-07-16 08:55 | disposition home or self-care (01) ==
PROVIDERS: Emergency Provider Emergency Medicine Emergency Medical Services
DX: M25.562 Pain in left knee (principal); Z79.899 Other long term (current) drug therapy
CPT/HCPCS: 96372; 99284; J1885

== ENCOUNTER 2025-07-25 14:04 | Emergency (ER) | payer MEDICARE, SELFPAY ==
--- NOTE | ~2025-07-25 | XR_ITS ---
XR KNEE AARON 3V HISTORY: Pain both knees. COMPARISON: 07/16/2025 left knee. 07/15/2025 left knee. TECHNIQUE: 4 views of each knee were obtained. FINDINGS: RIGHT KNEE: No fracture, dislocation, or suspicious bone lesion. Joint spaces are normal in all 3 compartments. No evidence of joint effusion. Soft tissues appear normal. LEFT KNEE: No fracture, dislocation, or suspicious bone lesion. Joint spaces are normal in all 3 compartments. No evidence of joint effusion. Soft tissues appear normal. XR/XR Knee Aaron 4V IMPRESSION: 1. No acute bony or soft tissue findings in either knee. No joint effusions. Electronically signed by: Leif Fong MD 07/25/2025 03:42 PM [facility]
[2025-07-25 14:07] VITALS: BP 117/97; BP 134/94; PULSE 111; PULSE 112; RESP 18; TEMP 36.5; O2SAT 109; O2SAT 98; BMI 19.7
--- NOTE | 2025-07-25 15:13 | ED_ITS ---
HPI - General Adult General Chief complaint: Extremity Injury, Lower Stated complaint: KNEE PAIN Time Seen by Provider: 07/25/25 15:12 Source: patient and EMS Mode of arrival: EMS Limitations: no limitations History of Present Illness ED Provider: Mary Lou Kramer PA-C HPI narrative: Patient is a 60 year old assigned male at with a history of alcohol use presenting to the emergency department today with bilateral knee pain. Patient states that several months ago he fell down and injured his left elbow and both knees. Patient states that he was evaluated for these things on 07/15/2025 and 07/16/2025 but knee pain persists and now today - he is unable to appropriately walk. Patient states that his left elbow is broken but he continues to be able to use it. Patient denies any other complaints at this time. Related Data Home Medications ?Medication ?Instructions ?Recorded ?Confirmed No Known Home Meds 07/26/25 07/26/25 Allergies Allergy/AdvReac Type Severity Reaction Status Date / Time No Known Allergies Allergy Verified 07/25/25 14:11 Review of Systems Constitutional: Constitutional: Reports as per HPI Eyes: Eyes: Reports as per HPI ENT: Reports as per HPI Cardiovascular: Cardiovascular: Reports as per HPI Respiratory: Respiratory: Reports as per HPI Gastrointestinal: Gastrointestinal: Reports as per HPI Genitourinary: Genitourinary: Reports as per HPI Musculoskeletal: Musculoskeletal: Reports as per HPI Integumentary/Breasts: Skin/Breast: Reports as per HPI Neurologic: Reports as per HPI Psychiatric: Psychiatric: Reports as per HPI Endocrine: Endocrine: Reports as per HPI Hematologic/Lymphatic: Hematologic/Lymphatic: Reports as per HPI Allergic/Immunologic: Allergic/Immunologic: Reports as per HPI [facility] Past Medical History Attestation statement: The following information was validated with the patient. Source: old records reviewed and nursing notes reviewed Social History Social History Alcohol intake: current Alcohol intake frequency: 0-2 drinks per day Alcohol type: hard liquor Physical Exam ED Vital Signs: Vital Signs - 24 hr 07/30/25 14:00 07/30/25 20:04 07/31/25 06:33 Temperature 98.6 F 98.4 F 98.3 F Pulse Rate 102 H 93 101 H Respiratory Rate 16 18 14 Blood Pressure 135/90 H 140/98 H 122/87 Pulse Oximetry 96 95 94 Oxygen Delivery Method Room Air Room Air Room Air BMI result Body Mass Index 19.7 Const General: cooperative, no acute distress, alert and awake Nutritional Appearance: well nourished Orientation/consciousness: patient oriented x3 HENMT Head: Yes normal to inspection and Yes atraumatic Ears: hearing grossly normal bilaterally and external ears normal General nose exam: Normal external nose present, no nasal discharge noted and no epistaxis Face and sinus: Yes normal facial exam, No abrasion and No laceration Mouth: Normal oral and palatal mucosa present, no drooling and no muffled voice Eyes General: appearance normal, both eyes and all related structures Periorbital: periorbital findings normal Eyelids: Yes eyelids normal Conjunctivae: conjunctivae normal Pupils: Equal, round and reactive pupils present EOM: EOMs intact bilaterally Neck Neck: Yes normal visual inspection and Yes full ROM Resp Effort & Inspection: normal respiratory effort and able to speak in complete sentences Neuro General: patient oriented x3, moves all extremities and CN's II-XI intact bilaterally Cranial nerves: Yes Equal, round and reactive pupils present Cognition (Neuro): normal cognition Extrem General: Yes normal to inspection, Yes full ROM and Yes capillary refill normal Psych Appearance: grossly normal Mental Status: mental status grossly normal Affect: normal affect Attitude: cooperative Thought process: Normal thought process present Thought content: Normal thought content present Insight: Good insight present (Psych) Course Reevaluation(s) Reevaluation #1: 07/26/2025 08:50 Provider: Lay Diaz PA-C: Physician observation continuous, No acute events reported overnight by nursing staff. Patient presented to the ED due to increased falls. We await evaluation by Physical therapy this morning and then we will reassess with case management on patient needs. VS stable. We will continue to monitor as we await PT and case management evaluation. Time: 08:49 Reevaluation #2: Provider: Lay Diaz PA-C patient was requesting nicotine patch as he smokes a pack a day. I ordered a daily nicotine patch for placement. Time: 17:49 Reevaluation #3: Time: 08:12 Date: 07/27/25 Provider: GRANT Segovia Patient in physician observation for case management needs. No acute events reported overnight.? No current issues or complaints. VS stable. Patient awaiting insurance authorization for [facility] placement. We will continue to monitor. Time: 9:09 am Date: 07/28/25 Provider: Lay Diaz PA-C Patient in physician observation for case management . No acute events reported by nursing overnight. No current complaints. VS stable. Currently awaiting insurance authorization for placement at [facility] for STR needs. Will continue to monitor as we await disposition. 9:38 AM 07/29/2025 (Helene Caballero NP): Physician observation continued, no overnight events reported by nursing. Vitals stable. CM following for disposition. 12:57 PM 07/30/2025 (Helene Caballero NP): Physician observation continued, no overnight events reported by nursing. Vital signs stable. Case management following for disposition, likely to [facility] pending insurance authorization. Time: 08:20 am Date: 07/31/25 Provider: Lay Diaz PA-C Patient in physician observation for case management, observation continued . No acute events reported by nursing overnight. No current complaints. VS stable. Patient still awaiting insurance authorization for STR placement. Will continue to monitor as we await disposition. - Patient to discharge to [facility] at 11am today for STR. Will continue to monitor as we await transportation for discharge. Medications Administered Discontinued Medications Generic Name Dose Route Start Last Admin Trade Name Freq PRN Reason Stop Dose Admin Acetaminophen 650 mg 07/27/25 09:13 07/28/25 05:53 Acetaminophen 325 Mg Tablet PO 650 mg Q6H PRN Administration Pain, Moderate(Pain Scale 4-6) Al Hydroxide/Mg Hydroxide 30 ml 07/29/25 07:33 07/29/25 08:08 Magnesium Hydrox/Alum Hydrox 30 Ml Oral.Susp PO 30 ml QID PRN Administration Acid indigestion Ketorolac Tromethamine 15 mg 07/25/25 15:15 07/25/25 15:46 Ketorolac Tromethamine 15 Mg/Ml Vial IM 07/25/25 15:16 15 mg ONCE ONE Administration Nicotine 7 mg 07/26/25 17:50 07/26/25 19:20 Nicotine 7 Mg Patch.Td24 TRANSDERMA 7 mg DAILY SARAI Administration Nicotine 7 mg 07/27/25 21:00 07/31/25 08:20 Nicotine 7 Mg Patch.Td24 TRANSDERMA 7 mg ONCE SARAI Administration Nicotine 7 mg 07/27/25 19:22 07/27/25 19:59 Nicotine 7 Mg Patch.Td24 TRANSDERMA 07/27/25 19:23 7 mg DAILY ONE Administration Nicotine 14 mg 07/30/25 19:50 07/30/25 20:39 Nicotine 14 Mg Patch.Td24 TRANSDERMA 07/30/25 19:51 14 mg ONCE ONE Administration Nicotine Polacrilex 2 mg 07/26/25 22:48 07/30/25 18:52 Nicotine Polacrilex 2 Mg Gum BUCCAL 2 mg Q2H PRN Administration Nicotine Cravings Medical Decision Making Medical Decision Making MDM Narrative: Patient is a 60 year old assigned male at with a history of alcohol use presenting to the emergency department today with bilateral knee pain. Patient's physical exam was as noted in the physical exam portion of this note. Patient's bilateral knee x-rays showed no acute process. Patient received IM Toradol which, upon re-evaluation, he stated it helped his pain some. I explained my physical exam findings as well as all test results to the patient. I answered all questions asked by the patient. I attempted to discharge the patient however - he stated he could not leave because he could not walk and he declined to get up and attempt to walk. Physical therapy evaluation placed. I am suspicious that the patient is misusing the emergency department as a safe place to rest. Patient signed out to GRANT Yadav pending physical therapy evaluation and re- evaluation. Differential Diagnosis Differential Diagnoses: The differential diagnosis associated with the presentation includes Misuse of emergency department Bilateral knee pain Admission/Observation Consideration of admission/observation: Escalation of care including admission/observation considered Patient would have been admitted to the hospital had his work up had any findings where hospital admission was appropriate and his clinical presentation warranted hospital admission. Lab Data Labs: Lab Results 07/26/25 Range/Units 10:04 COVID-19 (JABARI) Negative (Negative) COVID-19 Clin Com See Note Independent Interpretation I performed an independent interpretation of an: Plain X-Ray Interpretation: My interpretation is in agreement with the radiologist's impression of these imaging studies. Reason for Exam: pain XR KNEE LISA 3V HISTORY: Pain both knees. COMPARISON: 07/16/2025 left knee. 07/15/2025 left knee. TECHNIQUE: 4 views of each knee were obtained. FINDINGS: RIGHT KNEE: No fracture, dislocation, or suspicious bone lesion. Joint spaces are normal in all 3 compartments. No evidence of joint effusion. Soft tissues appear normal. LEFT KNEE: No fracture, dislocation, or suspicious bone lesion.Joint spaces are normal in all 3 compartments. No evidence of joint effusion. Soft tissues appear normal. XR/XR Knee Lisa 4V IMPRESSION: 1. No acute bony or soft tissue findings in either knee. No joint effusions. Electronically signed by: Leif Fong MD 07/25/2025 03:42 PM [facility] Dictated By: Leif Fong MD Signed By: Electronically signed by Leif Fong MD 07/25/25 1542 Radiology Impression Discussion of test interpretation with radiology: I have reviewed the radiologist's reading. Independent Historian Clinical information obtained from an independent historian. History obtained from or confirmed by: EMS (EMS provided additional history and confirmed the history provided by the patient.) Discharge Plan Discharge Clinical Impression: Chronic knee pain Patient Disposition: Xfer Inpatient Rehab Fac Transfer Details: TO: DR ANDI BRITO ACCEPTING Prescriptions: No Action No Known Home Meds Referrals: Lynn Simon [Outside] Discharge Date/Time: 07/31/25 11:40 Print Language: Spanish
[2025-07-25 15:45] VITALS: BP 133/96; PULSE 104; RESP 18; TEMP 36.4; O2SAT 95
[2025-07-25 18:38] VITALS: BP 100/76; PULSE 126; RESP 14; O2SAT 93
--- NOTE | 2025-07-25 19:26 | PC.NURSE ---
verbal report given to RN in overflow. No questions t this time, transport will take pt to overflow.
--- NOTE | 2025-07-25 19:51 | PC.NURSE ---
this RN assumed care of this pt approximately this time. Pt provided gingerale nd sndwich per pt request, no apparent distress or respiratory distress noted, call light provided for safety
[2025-07-25 21:47] VITALS: BP 109/76; PULSE 109; RESP 16; TEMP 36; O2SAT 95
[2025-07-26 05:00] VITALS: BP 125/76; PULSE 96; RESP 18; TEMP 36.4; O2SAT 95
--- NOTE | 2025-07-26 10:21 | PHA.MEDREC ---
Pharmacy Consult ? Medication Reconciliation Pharmacy has completed the medication reconciliation. Spoke with pt to confirm they are not on any meds.
[2025-07-26 10:26] LABS: COVID-19 Test Negative (Negative); IDNOW Serial# 55D5AD1C
--- OUTSIDE RECORDS SUMMARY | 2025-07-26 10:41 | XMS_ITS | Encounter Summary ---
Author Organization [facility] Address [address] [place] [address] Phone Care Team Providers Care Terminal System Operator Name Role Phone Michaela Rey Primary Care Provider +- [phone] Lynsey Stauffer MD Primary Care Provid er Pcp, Unknown Primary Care Provider Nancy Swain MD Primary Care Provider + [phone] Encounter Details Date Type Department Care Team (Late st Contact Info) Description 03/29/2025 Procedure Pass [facility], Ct Scan - [address] [phone] Social History Tobacco Use Types Packs/Day Years [...] 8:00 AM EDT Hailee Cloud RN * [place] Suicide Severity Rating Scale (Screener/Recent Self-Report) Question [...] documented as of this encounter Care Teams Terminal System Operator Relationship Specialty Start Date End Date Michaela Rey PA [address] [place] [address] PCP - General Manager Sterile 03/09/19 04/09/25 Lynsey Stauffer MD [address] [facility] [address] [place] [address] [email or web address] PCP - General Cardiology 04/10/25 04/12/25 Pcp, Unknown PCP - General 04/13/25 05/07/25 Nancy Zamorano MD [address] [place] [address] PCP - General Family Medicine 05/08/25 documented as of this encounter Additional Source Comments The information contained in this document represents components of the legal health record. It is not the complete legal health record.[facility]
--- OUTSIDE RECORDS SUMMARY | 2025-07-26 10:44 | XMS_ITS | Encounter Summary ---
Author Organization [facility] Address [address] [facility] [address] [place] [address] Phone Care Team Providers Care Transfer Table Operator Helper Name Role Phone Michaela Rey Primary Care Provider +- [phone] Lynsey Stauffer MD Primary Care Provid er Pcp, Unknown Primary Care Provider Nancy Swain MD Primary Care Provider + [phone] Encounter Details Date Type Department Care Team (Late st Contact Info) Description 06/27/2021 Procedure Pass [facility], Ct Scan - [address] [phone] Social History Tobacco Use Types Packs/Day Years [...] 3:09 AM EDT Shona Couch RN * [place] Suicide Severity Rating Scale (Screener/Recent Self-Report) Question [...] documented as of this encounter Care Teams Transfer Table Operator Helper Relationship Specialty Start Date End Date Michaela Rey PA [address] [place] [address] PCP - General Pasteurizer Helper 03/09/19 04/09/25 Lynsey Stauffer MD [address] [facility] [address] [place] [address] [email or web address] PCP - General Cardiology 04/10/25 04/12/25 Pcp, Unknown PCP - General 04/13/25 05/07/25 Nancy Zamorano MD [address] [place] [address] PCP - General Family Medicine 05/08/25 documented as of this encounter Additional Source Comments The information contained in this document represents components of the legal health record. It is not the complete legal health record.[facility]
--- OUTSIDE RECORDS SUMMARY | 2025-07-26 10:44 | XMS_ITS | Encounter Summary ---
Author Organization [facility] Address [address] [facility] [address] [place] [address] Phone Care Team Providers Care Home Lending Officer Name Role Phone Michaela Rey Primary Care Provider +- [phone] Lynsey Stauffer MD Primary Care Provid er Pcp, Unknown Primary Care Provider Nancy Swain MD Primary Care Provider + [phone] Encounter Details Date Type Department Care Team (Late st Contact Info) Description 06/27/2021 Procedure Pass [facility], Ct Scan - [address] [phone] Social History Tobacco Use Types Packs/Day Years [...] 3:09 AM EDT Shona Couch RN * [place] Suicide Severity Rating Scale (Screener/Recent Self-Report) Question [...] documented as of this encounter Care Teams Home Lending Officer Relationship Specialty Start Date End Date Michaela Rey PA [address] [place] [address] PCP - General Computer Repair Instructor 03/09/19 04/09/25 Lynsey Stauffer MD [address] [facility] [address] [place] [address] [email or web address] PCP - General Cardiology 04/10/25 04/12/25 Pcp, Unknown PCP - General 04/13/25 05/07/25 Nancy Zamorano MD [address] [place] [address] PCP - General Family Medicine 05/08/25 documented as of this encounter Additional Source Comments The information contained in this document represents components of the legal health record. It is not the complete legal health record.[facility]
--- OUTSIDE RECORDS SUMMARY | 2025-07-26 10:44 | XMS_ITS | Encounter Summary ---
Author Organization [facility] Address [address] [place] [address] [place] [address] Phone Care Team Providers Care Control Officer Manager Name Role Phone Unknown, Unknown Primary Care Provider Iván Avalos MD Primary Care Provider [phone] Unknown, Unknown Primary Care Provider Michaela Braun Primary Care Provider [phone] Lynsey Stauffer MD Primary Care Provid er Pcp, Unknown Primary Care Provider Nancy Swain MD Primary Care Provider + [phone] Encounter Details Date Type Department Care Team (Late st Contact Info) Description 08/28/2017 Procedure Pass [facility], Ct Scan - [address] [address] Social History Tobacco Use Types Packs/Day Years [...] documented as of this encounter Care Teams Control Officer Manager Relationship Specialty Start Date End Date Unknown, Kimberly, PCP - General 08/11/17 10/23/17 Iván Mcgrath MD [email or web address] PCP - General Internal Medicine 10/24/17 12/08/17 Unknown, Unknown, PCP - General 12/09/17 03/08/19 Michaela Rey PA [address] [place] [address] PCP - General Forging Die Sinker 03/09/19 04/09/25 Lynsey Stauffer MD [address] [place] [address] [address] [place] [address] [email or web address] PCP - General Cardiology 04/10/25 04/12/25 Pcp, Unknown PCP - General 04/13/25 05/07/25 Nancy Zamorano MD [address] [place] [address] PCP - General Family Medicine 05/08/25 documented as of this encounter Additional Source Comments The information contained in this document represents components of the legal health record. It is not the complete legal health record.[facility]
--- OUTSIDE RECORDS SUMMARY | 2025-07-26 10:45 | XMS_ITS | Encounter Summary ---
Author Organization [facility] Address [address] [place] [address] [place] [address] Phone Care Team Providers Care Rover Tender Name Role Phone Unknown, Unknown Primary Care Provider Iván Avalos MD Primary Care Provider [phone] Unknown, Unknown Primary Care Provider Michaela Braun Primary Care Provider [phone] Lynsey Stauffer MD Primary Care Provid er Pcp, Unknown Primary Care Provider Nancy Swain MD Primary Care Provider + [phone] Encounter Details Date Type Department Care Team (Late st Contact Info) Description 08/28/2017 Procedure Pass [facility], Ct Scan - [address] [address] Social History Tobacco Use Types Packs/Day Years [...] documented as of this encounter Care Teams Rover Tender Relationship Specialty Start Date End Date Unknown, Kimberly, PCP - General 08/11/17 10/23/17 Iván Mcgrath MD [email or web address] PCP - General Internal Medicine 10/24/17 12/08/17 Unknown, Unknown, PCP - General 12/09/17 03/08/19 Michaela Rey PA [address] [place] [address] PCP - General Wardrobe Supervisor 03/09/19 04/09/25 Lynsey Stauffer MD [address] [place] [address] [address] [place] [address] [email or web address] PCP - General Cardiology 04/10/25 04/12/25 Pcp, Unknown PCP - General 04/13/25 05/07/25 Nancy Zamorano MD [address] [place] [address] PCP - General Family Medicine 05/08/25 documented as of this encounter Additional Source Comments The information contained in this document represents components of the legal health record. It is not the complete legal health record.[facility]
--- OUTSIDE RECORDS SUMMARY | 2025-07-26 10:45 | XMS_ITS | Encounter Summary ---
Author Organization [facility] Address [address] [facility] [address] [place] [address] Phone Care Team Providers Care Training Personnel Supervisor Name Role Phone Unknown, Unknown Primary Care Provider Michaela Braun Primary Care Provider [phone] Lynsey Stauffer MD Primary Care Provid er Pcp, Unknown Primary Care Provider Nancy Swain MD Primary Care Provider Encounter Details Date Type Department Care Team (Late st Contact Info) Description 06/01/2018 Transcribe Orders [facility] Specimen Processing [address] [place] [address] Mina Soriano, DO [address] [place] [address] [place] [address] [email or web address] [...] EDT) WBC 8.78 3.40 - 11.20 K/uL [facility] RBC 5.58(H) 4.50 - 5.50 M/uL [facility] HGB 17.0 13.0 - 17.0 g/dL [facility] HCT 52.7(H) 40.0 - 51.0 % [facility] PLT 339 130 - 400 K/uL [facility] MCV 94.4 79.0 - 98.0 fL [facility] MCH 30.5 27.0 - 34.8 pg [facility] MCHC 32.3 31.5 - 36.0 g/dL [facility] RDW 14.5 10.8 - 14.6 % [facility] MPV 10.3 9.4 - 12.4 fl [facility] NRBC 0.00 /100 WBCs [facility] ABSOLUTE NRBC 0.00 K/uL [facility] Blood 06/02/2018 10:2 1 AM EDT 06/02/2018 3:19 PM EDT us Mina A Bigda DO LAB BLOOD BKR ORDERABLES Final R esult Performing Organization Address City/State/[facility] Co de Phone Number [address] [address] documented in this encounter Visit Diagnoses Diagnosis Health examination of prisoner- Primary Health examination of defined subpopulation documented in this encounter Additional Health Concerns Infection Onset Date Last Indicated Resolved Time CoV-Risk 06/03/2025 06/03/2025 06/14/2025 1:21 AM EDT documented as of this encounter Care Teams Training Personnel Supervisor Relationship Specialty Start Date End Date Unknown, Unknown, PCP - General 12/09/17 03/08/19 Michaela Rey PA [address] [place] [address] PCP - General [place] Spray Unit Adjuster 03/09/19 04/09/25 Lynsey Stauffer MD [address] [facility] [address] [place] [address] [email or web address] PCP - General Cardiology 04/10/25 04/12/25 Pcp, Unknown PCP - General 04/13/25 05/07/25 Nancy Zamorano MD [address] [place] [address] PCP - General Family Medicine 05/08/25 documented as of this encounter Additional Source Comments The information contained in this document represents components of the legal health record. It is not the complete legal health record.[facility]
--- OUTSIDE RECORDS SUMMARY | 2025-07-26 10:48 | XMS_ITS | Encounter Summary ---
Author Organization [facility] Address [address] [facility] [address] [place] [phone] Phone Care Team Providers Care Senior Insight Manager International Name Role Phone Unknown, Unknown Primary Care Provider Michaela Braun Primary Care Provider [phone] Lynsey Stauffer MD Primary Care Provid er Pcp, Unknown Primary Care Provider Nancy Swain MD Primary Care Provider [phone] Encounter Details Date Type Department Care Team (Late st Contact Info) Description 09/01/2018 Transcribe Orders [facility] Specimen Processing [address] [place] [address] Mina Soriano, DO [address] [place] [address] [place] [address] [email or web address] Routine general medical examination at a health [...] EST) WBC 9.42 3.40 - 11.20 K/uL [facility] RBC 5.03 4.50 - 5.50 M/uL [facility] HGB 15.7 13.0 - 17.0 g/dL [facility] HCT 46.9 40.0 - 51.0 % [facility] PLT 335 130 - 400 K/uL [facility] MCV 93.2 79.0 - 98.0 fL [facility] MCH 31.2 27.0 - 34.8 pg [facility] MCHC 33.5 31.5 - 36.0 g/dL [facility] RDW 14.6 10.8 - 14.6 % [facility] MPV 9.8 9.4 - 12.4 [facility] NRBC 0.00 0.00 /100 WBCs [facility] ABSOLUTE NRBC 0.00 0.00 K/uL [facility] Blood 09/01/2018 9:54 AM EST 09/01/2018 11:50 AM EST us Mina A Bigda DO LAB BLOOD BKR ORDERABLES Final R esult Performing Organization Address City/State/[facility] Co de Phone Number [address] [address] documented in this encounter Visit Diagnoses Diagnosis Routine general medical examination at a health care facility- Primary documented in this encounter Additional Health Concerns Infection Onset Date Last Indicated Resolved Time CoV-Risk 06/03/2025 06/03/2025 06/14/2025 1:21 AM EDT documented as of this encounter Care Teams Senior Insight Manager International Relationship Specialty Start Date End Date Unknown, Unknown, PCP - General 12/09/17 03/08/19 Michaela Rey PA [address] [place] [id number] PCP - General Ramp Service Man 03/09/19 04/09/25 Lynsey Stauffer MD [address] [place] [address] [email or web address] PCP - General Cardiology 04/10/25 04/12/25 Pcp, Unknown PCP - General 04/13/25 05/07/25 Nancy Zamorano MD [address] [place] [address] PCP - General Family Medicine 05/08/25 documented as of this encounter Additional Source Comments The information contained in this document represents components of the legal health record. It is not the complete legal health record.[facility]
--- OUTSIDE RECORDS SUMMARY | 2025-07-26 10:49 | XMS_ITS | Encounter Summary ---
Author Organization [facility] Address [address] [place] [address] [place] [address] Phone Care Team Providers Care Services Tech Name Role Phone Michaela Rey Primary Care Provider [phone] Lynsey Stauffer MD Primary Care Provid er Pcp, Unknown Primary Care Provider Nancy Swain MD Primary Care Provider [phone] Encounter Details Date Type Department Care Team (Late st Contact Info) Description 11/09/2019 Procedure Pass OR Admitting Dept - Virtual Department [address] [place] [id number] Social History Tobacco Use Types Packs/Day Years [...] documented as of this encounter Care Teams Services Tech Relationship Specialty Start Date End Date Michaela Rey PA [address] [place] [address] PCP - General Printing Assistant 03/09/19 04/09/25 Lynsey Stauffer MD [address] [facility] [address] [place] [address] [email or web address] PCP - General Cardiology 04/10/25 04/12/25 Pcp, Unknown PCP - General 04/13/25 05/07/25 Nancy Zamorano MD [address] [place] [address] PCP - General Family Medicine 05/08/25 documented as of this encounter Additional Source Comments The information contained in this document represents components of the legal health record. It is not the complete legal health record.[facility]
--- OUTSIDE RECORDS SUMMARY | 2025-07-26 10:49 | XMS_ITS | Encounter Summary ---
Author Organization [facility] Address [address] [facility] [address] [place] [address] Phone Care Team Providers Care Legal Word Processor Name Role Phone Michaela Rey Primary Care Provider [phone]- [phone] Lynsey Stauffer MD Primary Care Provid er Pcp, Unknown Primary Care Provider Nancy Swain MD Primary Care Provider + [phone] Encounter Details Date Type Department Care Team (Late st Contact Info) Description 06/27/2021 Procedure Pass [facility], Ct Scan - [address] [id number] Social History Tobacco Use Types Packs/Day Years [...] 3:09 AM EDT Shona Couch RN * [place] Suicide Severity Rating Scale (Screener/Recent Self-Report) Question [...] documented as of this encounter Care Teams Legal Word Processor Relationship Specialty Start Date End Date Michaela Rey PA [address] [place] [id number] PCP - General Project Development Engineer 03/09/19 04/09/25 Lynsey Stauffer MD [address] [facility] [address] [place] [address] [email or web address] PCP - General Cardiology 04/10/25 04/12/25 Pcp, Unknown PCP - General 04/13/25 05/07/25 Nancy Zamorano MD [address] [place] [id number] PCP - General Family Medicine 05/08/25 documented as of this encounter Additional Source Comments The information contained in this document represents components of the legal health record. It is not the complete legal health record.[facility]
--- NOTE | 2025-07-26 12:05 | MHC.CM.ED ---
Received case management consult overnight. Patient came to the ER due to knee pain. Work up essentially negative. Physical therapy eval completed. Short term rehab is recommended. Met with patient in regards to discharge planning. Patient is currently homeless. No PCP. Copy of HCP requested from Juanjose. Patient agreeable to STR being broadcasted at this time. Bed offers will be discussed with patient. Patient states he hasn't uses alcohol in over a month, smokes about 1/2 pack per day of cigarettes and will occasionally smoke marijuana for neck pain related to spinal stenosis. Continue to monitor for d/c needs.
--- NOTE | 2025-07-26 12:05 | PC.NURSE ---
Assumed care of pt at 0700. Pt resting quietly in room. Call siu within reach. Bed in lowest position. PT to evaluate and give recs. Pt denies complaints at this time
[2025-07-26 12:54] VITALS: BP 119/78; PULSE 95; RESP 18; TEMP 36.4; O2SAT 95
--- NOTE | 2025-07-26 14:27 | MHC.CM.ED ---
[facility] and [facility] are only facilities able to offer a bed a this time. Bed offers discussed with patient. Patient accepts bed at [facility]. [facility] is in the process of obtaining ins auth. Continue to monitor for d/c needs.
--- NOTE | 2025-07-26 19:00 | PC.NURSE ---
Assumed care for patient at 1500, resting in bed, no complaints, using urinal. Patient requested nicotine patch to help with cravings, states smokes aprox. 1 pack per day, asked if ok to go outside to have a cigarette and was informed that he will not be able to go for outside. Provider notified of the patch request, order for Nicotine Patch 7mg received, requested medication from the pharmacy.
[2025-07-26] MEDS: Nicotine 7 MG PATCH.TD24 TRANSDERMA (19:20)
[2025-07-27 05:16] VITALS: BP 149/98; PULSE 91; RESP 18; TEMP 36.4; O2SAT 96
--- NOTE | 2025-07-27 09:15 | PC.NURSE ---
Assumed care this am, pt. is alert and oriented x4, resting in bed. Complaining of general pain, Provider notified and Tylenol ordered.
[2025-07-27 09:35] VITALS: BP 132/88; PULSE 91; RESP 18; TEMP 36.8; O2SAT 93
--- NOTE | 2025-07-27 16:08 | PC.NURSE ---
Assumed care of this pt at 1500, pt resting quietly on hospital bed at this time. No signs of acute distress at this time.
[2025-07-27 16:25] VITALS: BP 135/93; PULSE 83; RESP 16; O2SAT 95
[2025-07-27] MEDS: Nicotine 7 MG PATCH.TD24 TRANSDERMA (19:59)
[2025-07-28 06:00] VITALS: BP 143/99; PULSE 90; RESP 14; TEMP 36.1; O2SAT 95
--- NOTE | 2025-07-28 06:21 | PC.NURSE ---
Assumed care of patient in ED OVF at 1900. Patient is alert and oriented x 3, calm, cooperative and pleasant. Utilizing urinal at bedside. Nicotene patch placed per MAR on right outer arm. Bed in lowest position, locked and alarmed. Call siu within reach. Plan: Placement pending insurance auth.
--- NOTE | 2025-07-28 08:40 | MHC.CM.ED ---
Patient remains in ER overflow. Lynn Simon is in the process of obtaining ins auth. Requesting updated physical therapy note. PT contacted. Clinical updates will be sent to Lynn Simon luis a. Continue to monitor for d/c needs.
[2025-07-28 13:08] VITALS: BP 153/95; PULSE 101; RESP 18; TEMP 36.8; O2SAT 95
[2025-07-28 20:08] VITALS: BP 135/93; PULSE 90; RESP 18; TEMP 37.2; O2SAT 95
--- NOTE | 2025-07-28 23:00 | PC.NURSE ---
assumed care @ 2300 - received patient in stable condition. sleeping at this time
--- NOTE | 2025-07-29 03:22 | PC.NURSE ---
arouses to verbal stimuli, denies any needs. agrees to call desk if needs anything.
[2025-07-29 06:00] VITALS: BP 146/107; PULSE 76; RESP 14; TEMP 36.4; O2SAT 93
--- NOTE | 2025-07-29 06:02 | PC.NURSE ---
pt c/o indigestion and requesting antacid at this time. BP this morning 141/100 - his normal usually trends 130-150/90's. notified ER physician of all this information at this time. will await any orders.
[2025-07-29] MEDS: Magnesium Hydrox/Alum Hydrox 30 ML ORAL.SUSP PO (08:08)
--- NOTE | 2025-07-29 08:15 | PC.NURSE ---
assumed care of pt at 0700. report received from Fabiola URIOSTEGUI. administered maalox prn as ordered as pt c/o heartburn/indigestion. breakfast tray set up. pt requests saran trevizo. call siu within reach.
--- NOTE | 2025-07-29 11:11 | PC.NURSE ---
Assumed care of patient at this time. Pt sitting up in bed watching TV. No distress noted
--- NOTE | 2025-07-29 12:49 | MHC.CM.ED ---
Review of Lnyn Simon communications: No auth as of this date. Liasion will contact [facility] ED CM when auth given for transfer arrangements. ED CM to follow
[2025-07-29 13:59] VITALS: BP 132/85; PULSE 101; RESP 16; TEMP 36.5; O2SAT 96
[2025-07-29] MEDS: Nicotine 7 MG PATCH.TD24 TRANSDERMA (18:49)
[2025-07-29 20:36] VITALS: BP 134/90; PULSE 94; RESP 14; TEMP 36.7; O2SAT 95
[2025-07-30 05:05] VITALS: BP 136/97; PULSE 103; RESP 16; TEMP 36.7; O2SAT 94
--- NOTE | 2025-07-30 05:33 | PC.NURSE ---
0530. Pt reports resting comfortably overnight. Oriented x4. Pt requested nicotine gum for cigarette craving. Assessment as documented in EMAR. Pt denies pain at this time. Pt appropriately using call button, bed in low locked position with bed alarm on for safety.
[2025-07-30 07:30] VITALS: BP 151/96; PULSE 91; RESP 16; TEMP 36.5; O2SAT 94
--- NOTE | 2025-07-30 10:27 | PC.NURSE ---
assumed care of pt at 0645. pt a&ox4. vss and up to date aside from being slightly hypertensive. pt ate 100% of breakfast. 1:1 assist OOB and to the restroom. pt utilized walker. pt noted to have a steady gait while utilizing walker. pt assisted back into bed/repositioned. on RA w/o difficulty - no sob/wob noted. respirations even/unlabored. pt continues to pend insurance authorization so transfer to [facility] can be arranged by CM. offers no complaints. bed alarm in place for safety precautions. plan of care ongoing. call siu placed within reach.
[2025-07-30 14:00] VITALS: BP 135/90; PULSE 102; RESP 16; TEMP 37; O2SAT 96
--- NOTE | 2025-07-30 14:07 | PC.NURSE ---
prn gum utilized per patient request.
--- NOTE | 2025-07-30 18:53 | PC.NURSE ---
nicotine patch removed from right arm. pt provided w/ nicotine gum per patient request.
[2025-07-30 20:04] VITALS: BP 140/98; PULSE 93; RESP 18; TEMP 36.9; O2SAT 95
[2025-07-30] MEDS: Nicotine 14 MG PATCH.TD24 TRANSDERMA (20:39)
--- NOTE | 2025-07-30 21:48 | PC.NURSE ---
nicotine patch removed earlier this evening, pt requested another one be placed. pt medicated per NOV. patch placed to L upper arm
[2025-07-31 06:33] VITALS: BP 122/87; PULSE 101; RESP 14; TEMP 36.8; O2SAT 94
[2025-07-31] MEDS: Nicotine 7 MG PATCH.TD24 TRANSDERMA (08:20)
--- NOTE | 2025-07-31 09:00 | MHC.CM.ED ---
Patient remains in ER overflow. Insurance auth obtained by Lynn Simon. Jorge YOUSIF booked for 11am. Patient, Krysta URIOSTEGUI and Lay BURNS aware. Continue to monitor for d/c needs.
== END 2025-07-31 11:40 ==
PROVIDERS: Physician Assistant Medical; Emergency Provider Emergency Medicine
DX: M25.561 Pain in right knee (principal); M25.562 Pain in left knee; G89.29 Other chronic pain; R29.6 Repeated falls
CPT/HCPCS: 73564; 87635; 96372; 97162; 97530; 99284; 99285; J1885

== ENCOUNTER → 2025-07-25 15:15 | Outpatient (BNV) | payer MEDICARE, SELFPAY | PROVIDERS: Visit Provider Radiology Diagnostic Radiology | DX: M25.561 Pain in right knee (principal); M25.562 Pain in left knee | CPT/HCPCS: 73564 ==

== ENCOUNTER 2025-08-18 09:31 | Inpatient (IN) | payer MEDICARE, SELFPAY ==
--- NOTE | ~2025-08-18 | XR_ITS ---
EXAMINATION: XR KNEE, LEFT CLINICAL INFORMATION: pain, unable to stand COMPARISON: 07/25/2025 TECHNIQUE: AP, lateral, bilateral oblique views of the left knee. FINDINGS: There is mild narrowing of the medial joint space. There are minute marginal osteophytes along the medial tibial plateau. There is no joint effusion. No fracture is identified. Small focal atherosclerotic ossifications are visible in the femoral artery. XR/XR knee LT 4V IMPRESSION: Minimal changes of osteoarthritis. Electronically signed by: Wolf Mcdonald MD 08/18/2025 10:48 AM [facility]
[2025-08-18 09:40] VITALS: BP 146/100; PULSE 117; O2SAT 98
--- NOTE | 2025-08-18 09:45 | ED_ITS ---
HPI - General Adult General Chief complaint: Extremity Injury, Lower Stated complaint: L KNEE PAIN Time Seen by Provider: 08/18/25 09:36 Source: patient, EMS, RN notes reviewed and old records reviewed Mode of arrival: EMS History of Present Illness ED Provider: Ada HPI narrative: Patient is a 60-year-old male with history of alcohol use disorder, chronic knee pain presenting to the emergency department with complaint of left knee pain since this morning. States that when he attempted to get up he was unable to bear weight on his left leg due to the pain. Denies any recent falls. Reports daily alcohol use, reports history of alcohol withdrawal seizures in the past but none for several years. Denies any recent fevers. States he is currently experiencing homelessness. MD complaint: knee pain Onset (ago): hour(s) Related Data Home Medications ?Medication ?Instructions ?Recorded ?Confirmed No Known Home Meds 07/26/25 07/26/25 Allergies Allergy/AdvReac Type Severity Reaction Status Date / Time No Known Allergies Allergy Verified 08/18/25 10:00 Review of Systems 2 Review of Systems: As per HPI Yes all other systems are reviewed and are negative Constitutional: Constitutional: Reports as per HPI PMF Past Medical History Medical History (Updated 08/18/25 @ 13:37 by GRANT Steel) Hypertension Alcohol dependence Social History Social History Alcohol intake: current Alcohol intake frequency: 3 or more drinks per day Alcohol type: hard liquor Advance Directives Date on File: 07/26/25 Physical Exam ED Vital Signs: Vital Signs - 24 hr 08/18/25 09:50 08/18/25 12:29 Temperature 98.3 F 97.1 F Pulse Rate 103 H 112 H Respiratory Rate 20 22 H Blood Pressure 128/102 H 142/106 H Pulse Oximetry 98 98 Oxygen Delivery Method Room Air Room Air BMI result Body Mass Index 20.7 Vital signs have been reviewed and appear to be correct. Blood pressure elevated diastolic. Heart rate slightly tachycardic. Respiratory rate normal. Temperature normal. Oxygen saturation normal. Const General: cooperative, healthy appearing and no acute distress Orientation/consciousness: oriented to person, oriented to place, oriented to time and patient oriented x3 Limitations: no limitations HENMT Head: Yes normocephalic and Yes atraumatic Ears: external ears normal General nose exam: Normal external nose present Face and sinus: Yes face symmetric Mouth: oropharynx normal and moist mucous membranes Throat: Yes uvula midline Eyes Pupils: Equal, round and reactive pupils present Neck Neck: Yes normal visual inspection and Yes supple Resp Effort & Inspection: normal respiratory effort and able to speak in complete sentences Auscultation: clear to auscultation bilaterally Cardio Rate: regular rate Rhythm: regular rhythm Heart sounds: S1 normal heart sound present and S2 normal heart sound present GI Palpation (GI): Soft to palpation and nontender Auscultation: normoactive bowel sounds General: Yes no CVA tenderness Back/Spine/Pelvis Back: no CVA tenderness Skin General skin exam: elasticity normal and turgor normal Neuro General: oriented to person, oriented to place, oriented to time, patient oriented x3, moves all extremities, no focal motor deficits and CN's II-XI intact bilaterally Cranial nerves: Yes Equal, round and reactive pupils present Cognition (Neuro): normal cognition Extrem General: Yes full ROM, Yes no pedal edema and Yes no calf tenderness Left lower extremity: knee Details: normal to inspection, tenderness Location: of the popliteal fossa and of the lateral joint line, normal ROM (passive) and knee ligament exam normal; no swelling, no abrasions, no lacerations, no ecchymosis and no unusual warmth Psych Mental Status: mental status grossly normal Affect: normal affect Thought process: Normal thought process present Course Reevaluation(s) Reevaluation #1: Notified by RN that patient now in alcohol withdrawal, CIWA of 11, phenobarb protocol initiated. Time: 12:38 Medications Administered Discontinued Medications Generic Name Dose Route Start Last Admin Trade Name Mary PRN Reason Stop Dose Admin Ketorolac Tromethamine 30 mg 08/18/25 11:29 08/18/25 12:59 Ketorolac Tromethamine 30 Mg/Ml Vial IM 08/18/25 11:30 30 mg ONCE ONE Administration Ondansetron HCl 4 mg 08/18/25 12:38 08/18/25 13:01 Ondansetron Hcl 4 Mg/2 Ml Vial IVPUSH 08/18/25 12:39 4 mg ONCE ONE Administration Medical Decision Making Medical Decision Making MDM Narrative: Patient is a 60-year-old male with history of alcohol use disorder, chronic knee pain presenting to the emergency department with complaint of left knee pain since this morning. On exam patient is awake, A+Ox3, VS WNL, afebrile, normal neurological exam without focal deficits, physical exam findings as above. Given reported symptoms and physical exam findings, initial differential includes but is not limited to osteoarthritis, strain, sprain, acute on chronic pain. Do not suspect DVT as no calf pain or swelling. Labs notable for no leukocytosis, no elevation of inflammatory markers. X-ray left knee notable for osteoarthritis. My interpretation is in agreement with the radiologist's interpretation. Notified by RN that patient experiencing alcohol withdrawal symptoms, CIWA of 11. Patient is increasingly tachycardic and hypertensive. Case discussed with Eduardo Snider, hospitalist who accepts admission to medicine. Differential Diagnosis Differential Diagnoses: The differential diagnosis associated with the presentation includes as per [facility] Admission/Observation Consideration of admission/observation: Escalation of care including admission/observation considered Consult Healthcare Provider Management of the patient was discussed with: Hospitalist Lab Data [facility] Lab Attestation statement: I reviewed the patient's lab results. as per [facility] 08/18/25 11:27 08/18/25 11:27 Labs: Lab Results 08/18/25 Range/Units 11:27 WBC 5.9 (4.8-10.8) X10*3/uL RBC 4.60 (4.60-5.80) X10*6/uL Hgb 15.5 (14.0-18.0) g/dl Hct 45.4 (42.0-52.0) % MCV 98.7 H (80.0-98.0) fL MCH 33.7 H (27.0-33.0) pg MCHC 34.1 (31.0-36.0) g/dl RDW 15.9 (11.0-16.0) % Plt Count 194 (160-400) X10*3/uL MPV 9.2 L (9.4-12.4) fL Immature Gran % (Auto) 0.8 H (0.0-0.4) % Neut % (Auto) 63.6 (45-73) % Lymph % (Auto) 26.5 (20-40) % [place] % (Auto) 7.8 (2-11) % Eos % (Auto) 0.3 (0-4) % Baso % (Auto) 1.0 (0-2) % Lymph # (Auto) 1.6 (1.2-4.9) X10*3/uL [place] # (Auto) 0.5 (0.1-1.2) X10*3/uL Eos # (Auto) 0.0 (0.0-0.4) X10*3/uL Baso # (Auto) 0.1 (0.0-0.2) X10*3/uL Abs Immat Gran (auto) 0.05 H (0.00-0.03) X10*3/uL Absolute Neuts (auto) 3.8 (2.0-8.3) x10*3/uL Absolute Nucleated RBC 0.000 (0.0-0.012) X10*3/uL Nucleated RBC % (auto) 0.0 (0.0-0.2) /100WBC ESR 12 (1-20) MM/HR Sodium 140 (135-145) mmol/L Potassium 3.4 (3.3-5.1) mmol/L Chloride 100 (96-108) mmol/L Carbon Dioxide 23 (22-29) mmol/L Anion Gap 20 (12-20) BUN 6 L (9-16) mg/dL Creatinine 0.48 L (0.5-1.4) mg/dL Estim Creat Clear Calc 153.5 Estimated GFR > 60 Random Glucose 64 (60-115) mg/dL Calcium 8.7 D (8.4-10.2) mg/dL Total Bilirubin 1.5 H (0.0-1.0) mg/dL AST 58 H (5-37) U/L ALT 19 (0-40) U/L Alkaline Phosphatase 95 (39-117) U/L C-Reactive Protein 0.33 (< or = 0.50) mg/dL Total Protein 6.6 (6.5-8.0) g/dL Albumin 3.7 (3.5-5.0) g/dL Ethyl Alcohol 124 mg/dL Independent Interpretation I performed an independent interpretation of an: Plain X-Ray Interpretation: Left knee x-ray notable for osteoarthritis, no acute fracture Radiology Impression Discussion of test interpretation with radiology: I have reviewed the radiologist's reading. Radiologist Impression: XR/XR knee LT 4V IMPRESSION: Minimal changes of osteoarthritis. External Record Review External record reviewed: Inpatient record, Office record and Outpatient record Critical Care Time Critical Care Time Critical Care Time: Yes Total Critical Care Time: 41 Attestation: I have personally provided critical care time exclusive of time spent on separately billable procedures. Time includes review of lab data, radiology results, discussion with consultants, and monitoring for potential decompensation. Intervention performed as documented. Discharge Plan Discharge Clinical Impression: Alcohol withdrawal, Knee pain, left Patient Disposition: Admitted As Inpatient
[2025-08-18 09:50] VITALS: BP 128/102; PULSE 103; RESP 20; TEMP 36.8; O2SAT 98; BMI 20.7
[2025-08-18 11:32] LABS: MANUAL DIFF FLAG NO
[2025-08-18 11:38] LABS: Hematocrit 45.4 % (42.0-52.0); Hemoglobin 15.5 g/dl (14.0-18.0); Imm Gran Abs Auto 0.05 X10*3/uL (0.00-0.03); Imm Gran Pct Auto 0.8 % (0.0-0.4); Lymphocytes Absolute Auto 1.6 X10*3/uL (1.2-4.9); Mean Corpuscular HGB Conc 34.1 g/dl (31.0-36.0); Mean Corpuscular Hemoglobin 33.7 pg (27.0-33.0); Mean Corpuscular Volume 98.7 fL (80.0-98.0); NRBC Abs Auto 0.000 X10*3/uL (0.0-0.012); NRBC Pct Auto 0.0 /100WBC (0.0-0.2); Platelet Count 194 X10*3/uL (160-400); Red Blood Count 4.60 X10*6/uL (4.60-5.80); White Blood Count 5.9 X10*3/uL (4.8-10.8)
[2025-08-18 11:53] LABS: Alanine Aminotransferase 19 U/L (0-40); Albumin Level 3.7 g/dL (3.5-5.0); Alkaline Phosphatase 95 U/L (39-117); Anion Gap 20 (12-20); Aspartate Amino Transferase 58 U/L (5-37); Blood Urea Nitrogen 6 mg/dL (9-16); Calcium 8.7 mg/dL (8.4-10.2); Carbon Dioxide 23 mmol/L (22-29); Chloride 100 mmol/L (96-108); Creatinine Clr Calc Pharmacy 153.5; Estimated Glomerular Filt Rate > 60; Potassium 3.4 mmol/L (3.3-5.1); Sodium 140 mmol/L (135-145); Total Protein 6.6 g/dL (6.5-8.0)
[2025-08-18 12:29] VITALS: BP 142/106; PULSE 112; RESP 22; TEMP 36.2; O2SAT 98
--- NOTE | 2025-08-18 12:42 | PC.NURSE ---
Initial contact w/ pt, pt states he hasnt had any etoh since yesterday. Drinks daily. CIWA performed and scored. Provider informed. Pt agreeable to stay for detox
--- NOTE | 2025-08-18 13:32 | P.HPHOSP_ITS ---
History of Present Illness Date of Service: 08/18/25 Attending physician on admission: Pranav Puga Chief Complaint: knee pain This is a 60 year old male with history of alcohol dependence, HTN, currently homeless who initially presented to the ED for complaints of left knee pain. Patient reports left knee pain with difficulty ambulating. He was not found to have any erythema or significant swelling of the left knee. X-ray showed minimal arthritis. He was treated with IM ketorolac. During his time in the emergency department he became increasingly tremulous and tachycardic. Patient admitted to drinking 15-20 nips three times a week and less in between. CIWA score elevated at 11. Patient reports a history of alcohol withdrawal with withdrawal seizures in the past and previous admission at [facility]. Patient is currently homeless and he is not taking any medication on a regular basis at this time. Emergency department he also reported nausea but denied abdominal pain. He was started on phenobarbital protocol and we will be admitted to the hospital for further management. Review of Systems 2 Review of Systems: Yes all other systems are reviewed and are negative Constitutional: Constitutional: Denies chills and Denies fever(s) Cardiovascular: Cardiovascular: Denies chest pain, Denies palpitations and Denies dyspnea Respiratory: Respiratory: Denies dyspnea Gastrointestinal: Gastrointestinal: Denies abdominal pain, Reports nausea and Denies vomiting Endocrine: Endocrine: Denies palpitations [facility] Medical History (Updated 08/18/25 @ 13:37 by GRANT Steel) Hypertension Alcohol dependence Social History (Updated 08/18/25 @ 13:38 by GRANT Steel) Alcohol intake: current Alcohol intake frequency: 3 or more drinks per day Alcohol type: hard liquor Advance Directives Date on File: 07/26/25 Meds Allergies Allergy/AdvReac Type Severity Reaction Status Date / Time No Known Allergies Allergy Verified 08/18/25 10:00 Active Medications: Current Medications Acetaminophen (Acetaminophen 325 Mg Tablet) 650 mg PO Q6H PRN PRN Reason: Pain, Mild 1-3,fever,headache Calcium Carbonate (Calcium Carbonate 750 Mg Tab.Chew) 750 mg PO Q4H PRN PRN Reason: Heartburn Enoxaparin Sodium (Enoxaparin Sodium 40 Mg/0.4 Ml Syringe) 40 mg SUBCUT Q24H SARAI Lactated Ringer's (Lr) 1,000 mls @ 100 mls/hr IVCONT .Q10H [facility] Magnesium Hydroxide (Milk Of Magnesia 30 Ml Oral.Susp) 30 ml PO DAILY PRN PRN Reason: Constipation Melatonin (Melatonin 3 Mg Tablet) 6 mg PO BEDTIME PRN PRN Reason: Insomnia Pharmacy Consult (Consult Rx Etoh Phenob Im/Po) 1 each MISCELLANE ONCE PRN; Protocol PRN Reason: Consult order Phenobarbital (Phenobarbital 15 Mg Tablet) 45 mg PO BID [facility] Stop: 08/20/25 21:01 Phenobarbital (Phenobarbital 15 Mg Tablet) 15 mg PO BID [facility] Stop: 08/22/25 21:01 Phenobarbital (Phenobarbital 15 Mg Tablet) 15 mg PO DAILY [facility] Stop: 08/24/25 09:01 Phenobarbital Sodium (Phenobarbital Sodium 130 Mg/Ml Im Once) 314 mg IM ONCE@1400 [facility] Stop: 08/18/25 14:01 Phenobarbital Sodium (Phenobarbital Sodium 130 Mg/Ml Vial Im Q3hx2) 235 mg IM 1700,2000 [facility] Stop: 08/18/25 20:01 Sodium Chloride (0.9 % Sodium Chloride Flush 3 Ml Syringe) 3 ml IVFLUSH QSHIFT [facility] Home Medications ?Medication ?Instructions ?Recorded ?Confirmed ?Last Taken ?Type No Known Home Meds 07/26/25 07/26/25 Un known History Physical Exam 2 Vital Signs and Narrative: Vital Signs: Last Vital Signs Temp 97.1 F 08/18/25 12:29 Pulse 112 H 08/18/25 12:29 Resp 22 H 08/18/25 12:29 BP 142/106 H 08/18/25 12:29 Pulse Ox 98 08/18/25 12:29 O2 Del Method Room Air 08/18/25 12:29 BMI result Body Mass Index 20.7 Const: Other: tremulous General: alert and awake Nutritional Appearance: thin O rientation/consciousness: oriented to person and oriented to place Resp: Effort & Inspection: normal respiratory effort, able to speak in complete sentences, no respiratory distress and no use of accessory muscles Cardio: Rate: tachycardic GI: Inspection: No distended Palpation (GI): Soft to palpation and nontender Neuro: General: oriented to person, oriented to place, moves all extremities and CN's II-XI intact bilaterally Extrem: Other: left knee exam limited due to pain even with light pressure - no appreciable effusion, no warmth or erythema; pt declined to attempt bending knee stating he has moved it enough already today General: No pedal edema Results Labs 08/18/25 11:27 08/18/25 11:27 Labs: Laboratory Results - last 24 hr 08/18/25 11:27 MCV 98.7 H MCH 33.7 H MCHC 34.1 RDW 15.9 Plt Count 194 MPV 9.2 L Immature Gran % (Auto) 0.8 H Neut % (Auto) 63.6 Lymph % (Auto) 26.5 [place] % (Auto) 7.8 Eos % (Auto) 0.3 Baso % (Auto) 1.0 Lymph # (Auto) 1.6 [place] # (Auto) 0.5 Eos # (Auto) 0.0 Baso # (Auto) 0.1 Abs Immat Gran (auto) 0.05 H Absolute Neuts (auto) 3.8 Absolute Nucleated RBC 0.000 Nucleated RBC % (auto) 0.0 ESR 12 Anion Gap 20 Estim Creat Clear Calc 153.5 Estimated GFR > 60 Random Glucose 64 Calcium 8.7 D Total Bilirubin 1.5 H AST 58 H ALT 19 Alkaline Phosphatase 95 C-Reactive Protein 0.33 Total Protein 6.6 Albumin 3.7 Ethyl Alcohol 124 Imaging Radiologist's Impressions: Impressions Knee X-Ray 08/18/25 10:37 IMPRESSION: Minimal changes of osteoarthritis. Electronically signed by: Wolf Mcdonald MD 08/18/2025 10:48 AM [facility] [place] and Plan (1) Alcohol withdrawal: Status: Acute Plan This is a 60-year-old male with history of hypertension, spinal stenosis, alcohol dependence who presents to the emergency department with left knee pain found to be in alcohol withdrawal Alcohol dependence with withdrawal etoh level 124, last drink yesterday phenobarbitol protocol, follow CIWA check electrolytes and replace prn vitamin supplementation IVF addiction medicine evaluation Hypomagnesemia Magnesium 1.4 Replace and follow levels Tobacco dependence Smoking cessation advised NRT Left knee pain xray with mild OA treat symptomatically may need PT eval prior to d/c HTN no longer taking meds follow BP trend DVT ppx - lovenox Patient will likely require 2 midnight stay in the hospital for management of alcohol withdrawal requiring IM phenobarbital, close monitoring on telemetry Quality Stroke Does the patient have a stroke diagnosis?: No VTE Prior VTE?: No VTE Risk Level:: Medical - moderate - high VTE Device Contraindication: Treatment Not Indicated VTE Drug Contraindication: N/A - Med Ordered
[2025-08-18 13:36] LABS: Magnesium 1.4 mg/dL (1.6-2.6)
[2025-08-18] MEDS: Magnesium Sulfate/H2O 2 GM/50 ML PIGGYBACK IV (15:04)
[2025-08-18] MEDS: Nicotine 21 MG PATCH.TD24 TRANSDERMA (15:07)
[2025-08-18] MEDS: Potassium Chloride Packet 20 MEQ PACKET 40 MEQ PO (15:09)
[2025-08-18] MEDS: Thiamine HCL 200 MG in 0.9 % Sodium Chloride 100 ML 204 MG IV (15:12)
[2025-08-18] MEDS: PHENobarbitaL sodium 130 MG/ML IM ONCE 314 MG IM (15:13)
[2025-08-18 16:48] VITALS: BP 144/107; PULSE 95; RESP 20; TEMP 36.7; O2SAT 94
--- NOTE | 2025-08-18 17:06 | PHA.MEDREC ---
Pharmacy Consult ? Medication Reconciliation Pharmacy has completed the medication reconciliation. Spoke with pt to confirm he is not on any medications.
[2025-08-18] MEDS: Lactated Ringers 1,000 ML 100 ML IVCONT ×2 (18:57→23:25)
[2025-08-18] MEDS: PHENobarbitaL sodium 130 MG/ML VIAL IM Q3Hx2 235 MG IM ×2 (19:06→23:26)
--- NOTE | 2025-08-18 19:55 | HO.NURTONUR ---
Pt here this am c/o L knee pain after fall and unable to bear wt. Pt has pmhx of everyday etoh use, approx 10 nips/day, and etoh withdrawal hx w/ sz. Pt is also unhoused at this time. Whle pt was beig worked up, pt began to withdraw from alcohol w/ and initial CIWA of 11. Pt is being admitted for etoh withdrawal and tx'd w/ phenobarb. Last CIWA @ 1914 was 9. Pt was also repleted w/ Mg iv for a Mg of 1.4
[2025-08-18 20:07] VITALS: BP 134/99; PULSE 114; RESP 19; TEMP 36.9; O2SAT 95
[2025-08-18 21:31] VITALS: BMI 21.8
[2025-08-18] MEDS: 0.9 % Sodium Chloride Flush 3 ML SYRINGE IVFLUSH (23:27)
[2025-08-18 23:44] VITALS: BP 153/89; PULSE 93; RESP 20; TEMP 36.8; O2SAT 94
[2025-08-19] MEDS: Thiamine HCL 200 MG in 0.9 % Sodium Chloride 100 ML 204 MG IV ×2 (03:03→14:38)
[2025-08-19 03:47] VITALS: BP 128/84; PULSE 93; RESP 20; TEMP 36.2; O2SAT 92
[2025-08-19 07:38] LABS: Alanine Aminotransferase 13 U/L (0-40); Albumin Level 3.0 g/dL (3.5-5.0); Alkaline Phosphatase 89 U/L (39-117); Aspartate Amino Transferase 42 U/L (5-37); Total Protein 5.6 g/dL (6.5-8.0)
[2025-08-19 08:00] VITALS: BP 148/108; PULSE 97; RESP 18; TEMP 36.6; O2SAT 94
[2025-08-19 08:01] LABS: Magnesium 1.4 mg/dL (1.6-2.6)
[2025-08-19] MEDS: Nicotine 21 MG PATCH.TD24 TRANSDERMA (09:21)
[2025-08-19] MEDS: PHENobarbital 15 MG TABLET 45 MG PO ×2 (09:21→22:11)
[2025-08-19] MEDS: Magnesium Sulfate/H2O 2 GM/50 ML PIGGYBACK IV (09:22)
--- NOTE | 2025-08-19 09:24 | MHC.CM.PN ---
IMM 08/19/25, Pt. is homeless, he does not have a PCP, he said he has been moving around a lot and will get a PCP when and where he settles. HCP is on file and confirmed: Lissa. Pt. does not use home health services or DME. DCP: he said he plans to go to a senior care in [place]. CM to follow for DC needs.
[2025-08-19] MEDS: Lactated Ringers 1,000 ML 100 ML IVCONT ×2 (09:44→22:11)
[2025-08-19 11:13] VITALS: BP 130/88; PULSE 93; RESP 16; TEMP 36.7; O2SAT 93
--- NOTE | 2025-08-19 14:49 | MHC.RECOVRN ---
Addiction Consult received for patient admitted with management of ETOH W/D. Recovery evaluation completed. Please see for additional details. Plan: Pt would like to try Naltrexone again when appropriate.? Will connect with [facility] clinic once D/C location known ACS provider to follow-up for HERO Declined RC referral and any referrals to care on the recovery continuum. Pt will F/U with AA.
[2025-08-19 15:53] VITALS: BP 151/94; PULSE 101; RESP 18; TEMP 37.3; O2SAT 96
--- NOTE | 2025-08-19 16:13 | P.PNIM_ITS ---
Subjective Subjective Date of Service: 08/19/25 Interval History: No acute issues overnight. No seizure activity noted Review of Systems Denies chest pain Denies shortness of breath Denies nausea vomiting diarrhea Denies fever chills Physical Exam 2 Vital Signs: Vital Signs: Last Vital Signs Temp 99.2 F 08/19/25 15:53 Pulse 101 H 08/19/25 15:53 Resp 18 08/19/25 15:53 BP 151/94 H 08/19/25 15:53 Pulse Ox 96 08/19/25 15:53 O2 Del Method Room Air 08/19/25 15:53 BMI result Body Mass Index 21.8 Const: Other: Awake alert no acute distress Resp: Other: Clear to auscultation bilaterally no rales rhonchi or wheezes Cardio: Other: No S4; positive S1-S2; no S3 murmurs rubs or gallops GI: Other: Soft nontender nondistended normoactive bowel sounds Extrem: Other: No edema bilaterally Objective Data Active Medications Acetaminophen (Acetaminophen 325 Mg Tablet) 650 mg PO Q6H PRN PRN Reason: Pain, Mild 1-3,fever,headache Calcium Carbonate (Calcium Carbonate 750 Mg Tab.Chew) 750 mg PO Q4H PRN PRN Reason: Heartburn Enoxaparin Sodium (Enoxaparin Sodium 40 Mg/0.4 Ml Syringe) 40 mg SUBCUT Q24H [facility] Last Admin: 08/19/25 14:41 Dose: Not Given Documented By: MARCO Non-Admin Reason: Patient Refused Famotidine (Famotidine/Pf 20 Mg/2 Ml Vial) 20 mg IVPUSH DAILY [facility] Last Admin: 08/19/25 09:22 Dose: 20 mg Documented By: MARCO Folic Acid (Folic Acid 1 Mg Tablet) 1 mg PO DAILY [facility] Last Admin: 08/19/25 09:22 Dose: 1 mg Documented By: MARCO Lactated Ringer's (Lr) 1,000 mls @ 100 mls/hr IVCONT .Q10H [facility] Last Admin: 08/19/25 09:44 Dose: 100 mls/hr Documented By: MARCO Thiamine HCl 200 mg/ Sodium (Chloride) 102 mls @ 204 mls/hr IV Q12H [facility] Last Infusion: 08/19/25 15:10 Dose: Infused Documented By: MARCO Magnesium Hydroxide (Milk Of Magnesia 30 Ml Oral.Susp) 30 ml PO DAILY PRN PRN Reason: Constipation Magnesium Oxide (Magnesium Oxide 400 Mg Tablet) 800 mg PO BIDPC [facility] Last Admin: 08/19/25 09:22 Dose: 800 mg Documented By: MARCO Melatonin (Melatonin 3 Mg Tablet) 6 mg PO BEDTIME PRN PRN Reason: Insomnia Nicotine (Nicotine 21 Mg Patch.Td24) 21 mg TRANSDERMA DAILY [facility] Last Admin: 08/19/25 09:21 Dose: 21 mg Documented By: MARCO Pharmacy Consult (Consult Rx Etoh Phenob Im/Po) 1 each MISCELLANE ONCE PRN; Protocol PRN Reason: Consult order Phenobarbital (Phenobarbital 15 Mg Tablet) 45 mg PO BID [facility] Stop: 08/20/25 21:01 Last Admin: 08/19/25 09:21 Dose: 45 mg Documented By: MARCO Phenobarbital (Phenobarbital 15 Mg Tablet) 15 mg PO BID [facility] Stop: 08/22/25 21:01 Phenobarbital (Phenobarbital 15 Mg Tablet) 15 mg PO DAILY [facility] Stop: 08/24/25 09:01 Sodium Chloride (0.9 % Sodium Chloride Flush 3 Ml Syringe) 3 ml IVFLUSH QSHIFT [facility] Last Admin: 08/19/25 15:11 Dose: Not Given Documented By: MARCO Non-Admin Reason: IV Running Labs 08/18/25 11:27 08/18/25 11:27 Labs: Laboratory Results - last 24 hr 08/19/25 08/19/25 06:43 06:55 Hold Purple Top SEE NOTE Magnesium 1.4 L* Total Bilirubin 2.0 H Direct Bilirubin 0.8 H AST 42 H ALT 13 Alkaline Phosphatase 89 Total Protein 5.6 L Albumin 3.0 L Assessment and Plan (1) Alcohol withdrawal: Status: Acute (2) Hypertension: Status: Acute Plan This is a 60-year-old male with history of hypertension, spinal stenosis, alcohol dependence who presents to the emergency department with left knee pain found to be in alcohol withdrawal 1.Alcohol dependence with withdrawal -phenobarbitol protocol, follow CIWA -supplemental IV fluids -follow renals/divalent 2.Hypomagnesemia -repleted -repeat in a.m. 3.HTN -acceptable control off therapies -follow clinically and adjust as indicated lovenox Full code Patient will require ongoing stay for management of alcohol withdrawal requiring IM phenobarbital, close monitoring on telemetry Quality Stroke Does the patient have a stroke diagnosis?: No VTE Prior VTE?: No VTE Risk Level:: Medical - moderate - high VTE Device Contraindication: Treatment Not Indicated VTE Drug Contraindication: N/A - Med Ordered
[2025-08-19 19:18] VITALS: BP 141/84; PULSE 98; RESP 20; TEMP 36.7; O2SAT 96
[2025-08-20] VITALS: BP 136/81; PULSE 86; RESP 19; TEMP 36.8; O2SAT 95
[2025-08-20] MEDS: Thiamine HCL 200 MG in 0.9 % Sodium Chloride 100 ML 204 MG IV ×2 (01:46→14:22)
[2025-08-20 03:36] VITALS: BP 159/93; PULSE 88; RESP 20; TEMP 36.6; O2SAT 95
[2025-08-20 07:02] LABS: MANUAL DIFF FLAG NO
[2025-08-20 07:22] LABS: Hematocrit 38.4 % (42.0-52.0); Hemoglobin 13.0 g/dl (14.0-18.0); Imm Gran Abs Auto 0.04 X10*3/uL (0.00-0.03); Imm Gran Pct Auto 0.7 % (0.0-0.4); Lymphocytes Absolute Auto 1.7 X10*3/uL (1.2-4.9); Mean Corpuscular HGB Conc 33.9 g/dl (31.0-36.0); Mean Corpuscular Hemoglobin 33.6 pg (27.0-33.0); Mean Corpuscular Volume 99.2 fL (80.0-98.0); NRBC Abs Auto 0.000 X10*3/uL (0.0-0.012); NRBC Pct Auto 0.0 /100WBC (0.0-0.2); Platelet Count 139 X10*3/uL (160-400); Red Blood Count 3.87 X10*6/uL (4.60-5.80); White Blood Count 5.4 X10*3/uL (4.8-10.8)
[2025-08-20 07:25] LABS: Alanine Aminotransferase 15 U/L (0-40); Albumin Level 3.0 g/dL (3.5-5.0); Alkaline Phosphatase 79 U/L (39-117); Anion Gap 12 (12-20); Aspartate Amino Transferase 43 U/L (5-37); Blood Urea Nitrogen 6 mg/dL (9-16); Calcium 8.2 mg/dL (8.4-10.2); Carbon Dioxide 27 mmol/L (22-29); Chloride 101 mmol/L (96-108); Creatinine Clr Calc Pharmacy 149.0; Estimated Glomerular Filt Rate > 60; Potassium 3.2 mmol/L (3.3-5.1); Sodium 137 mmol/L (135-145); Total Protein 5.6 g/dL (6.5-8.0)
[2025-08-20 08:00] VITALS: BP 140/87; PULSE 95; RESP 18; TEMP 36.7; O2SAT 93
[2025-08-20] MEDS: PHENobarbital 15 MG TABLET 45 MG PO ×2 (09:37→20:57)
[2025-08-20] MEDS: Nicotine 21 MG PATCH.TD24 TRANSDERMA (09:38)
[2025-08-20] MEDS: 0.9 % Sodium Chloride Flush 3 ML SYRINGE IVFLUSH (09:39)
[2025-08-20] MEDS: Lactated Ringers 1,000 ML 100 ML IVCONT (09:48)
--- NOTE | 2025-08-20 11:58 | MHC.RECOVRN ---
T/W met with pt. in 476 to F/U on information/education and resources left yesterday. Plan: Pt has decided to go with Naltrexone when appropriate Will meet with ACS provider tomorrow for [facility] Pt would like [facility] clinic in [facility]. Located [facility] but unable to send referral due to W/E. ACS to send tomorrow. ACS available PRN
[2025-08-20 12:00] VITALS: BP 142/88; PULSE 95; RESP 20; TEMP 36.6; O2SAT 92
--- NOTE | 2025-08-20 15:04 | P.PNIM_ITS ---
Subjective Subjective Date of Service: 08/20/25 Interval History: No acute issues overnight. No active withdrawals Review of Systems Denies chest pain Denies shortness of breath Denies nausea vomiting diarrhea Denies fever chills Physical Exam 2 Vital Signs: Vital Signs: Last Vital Signs Temp 98 F 08/20/25 12:00 Pulse 95 08/20/25 12:00 Resp 20 08/20/25 12:00 BP 142/88 H 08/20/25 12:00 Pulse Ox 92 08/20/25 12:00 O2 Del Method Room Air 08/20/25 12:00 BMI result Body Mass Index 21.8 Const: Other: Awake alert no acute distress Resp: Other: Clear to auscultation bilaterally no rales rhonchi or wheezes Cardio: Other: No S4; positive S1-S2; no S3 murmurs rubs or gallops GI: Other: Soft nontender nondistended normoactive bowel sounds Extrem: Other: No edema bilaterally Objective Data Active Medications Acetaminophen (Acetaminophen 325 Mg Tablet) 650 mg PO Q6H PRN PRN Reason: Pain, Mild 1-3,fever,headache Calcium Carbonate (Calcium Carbonate 750 Mg Tab.Chew) 750 mg PO Q4H PRN PRN Reason: Heartburn Enoxaparin Sodium (Enoxaparin Sodium 40 Mg/0.4 Ml Syringe) 40 mg SUBCUT Q24H [facility] Last Admin: 08/20/25 14:22 Dose: Not Given Documented By: MARCO Non-Admin Reason: Patient Refused Famotidine (Famotidine/Pf 20 Mg/2 Ml Vial) 20 mg IVPUSH DAILY [facility] Last Admin: 08/20/25 09:38 Dose: 20 mg Documented By: MARCO Folic Acid (Folic Acid 1 Mg Tablet) 1 mg PO DAILY [facility] Last Admin: 08/20/25 09:38 Dose: 1 mg Documented By: MARCO Thiamine HCl 200 mg/ Sodium (Chloride) 102 mls @ 204 mls/hr IV Q12H [facility] Last Infusion: 08/20/25 15:04 Dose: Infused Documented By: MARCO Magnesium Hydroxide (Milk Of Magnesia 30 Ml Oral.Susp) 30 ml PO DAILY PRN PRN Reason: Constipation Magnesium Oxide (Magnesium Oxide 400 Mg Tablet) 800 mg PO BIDPC [facility] Last Admin: 08/20/25 09:38 Dose: 800 mg Documented By: MARCO Melatonin (Melatonin 3 Mg Tablet) 6 mg PO BEDTIME PRN PRN Reason: Insomnia Nicotine (Nicotine 21 Mg Patch.Td24) 21 mg TRANSDERMA DAILY [facility] Last Admin: 08/20/25 09:38 Dose: 21 mg Documented By: MARCO Oxycodone HCl (Oxycodone Hcl Immed Release 5 Mg Tablet) 5 mg PO Q4H PRN PRN Reason: Pain, Moderate(Pain Scale 4-6) Pharmacy Consult (Consult Rx Etoh Phenob Im/Po) 1 each MISCELLANE ONCE PRN; Protocol PRN Reason: Consult order Phenobarbital (Phenobarbital 15 Mg Tablet) 45 mg PO BID [facility] Stop: 08/20/25 21:01 Last Admin: 08/20/25 09:37 Dose: 45 mg Documented By: MARCO Phenobarbital (Phenobarbital 15 Mg Tablet) 15 mg PO BID [facility] Stop: 08/22/25 21:01 Phenobarbital (Phenobarbital 15 Mg Tablet) 15 mg PO DAILY [facility] Stop: 08/24/25 09:01 Sodium Chloride (0.9 % Sodium Chloride Flush 3 Ml Syringe) 3 ml IVFLUSH QSHIFT [facility] Last Admin: 08/20/25 09:39 Dose: 3 ml Documented By: MARCO Labs 08/20/25 06:55 08/20/25 06:55 Labs: Laboratory Results - last 24 hr 08/20/25 06:55 MCV 99.2 H MCH 33.6 H MCHC 33.9 RDW 15.7 Plt Count 139 L D MPV 10.2 Immature Gran % (Auto) 0.7 H Neut % (Auto) 55.2 Lymph % (Auto) 32.0 [place] % (Auto) 10.6 Eos % (Auto) 1.3 Baso % (Auto) 0.2 Lymph # (Auto) 1.7 [place] # (Auto) 0.6 Eos # (Auto) 0.1 Baso # (Auto) 0.0 Abs Immat Gran (auto) 0.04 H Absolute Neuts (auto) 3.0 Absolute Nucleated RBC 0.000 Nucleated RBC % (auto) 0.0 Anion Gap 12 Estim Creat Clear Calc 149.0 Estimated GFR > 60 Fasting Glucose 102 H Calcium 8.2 L Total Bilirubin 0.8 AST 43 H ALT 15 Alkaline Phosphatase 79 Total Protein 5.6 L Albumin 3.0 L Assessment and Plan (1) Alcohol withdrawal: Status: Acute Plan This is a 60-year-old male with history of hypertension, spinal stenosis, alcohol dependence who presents to the emergency department with left knee pain found to be in alcohol withdrawal 1.Alcohol dependence with withdrawal -phenobarbitol protocol, follow CIWA... 022 today -supplemental IV fluids -follow renals/divalent -PT consult in a.m. 2.Hypomagnesemia -repleted -repeat in a.m. 3.HTN -acceptable control off therapies -follow clinically and adjust as indicated lovenox Full code Patient will require ongoing stay for management of alcohol withdrawal requiring IM phenobarbital, close monitoring on telemetry Quality Stroke Does the patient have a stroke diagnosis?: No VTE Prior VTE?: No VTE Risk Level:: Medical - moderate - high VTE Device Contraindication: Treatment Not Indicated VTE Drug Contraindication: N/A - Med Ordered
[2025-08-20] MEDS: oxyCODONE HCl Immed Release 5 MG TABLET PO (15:29)
[2025-08-20 16:00] VITALS: BP 141/88; PULSE 92; RESP 20; TEMP 36.6; O2SAT 93
[2025-08-20 20:00] VITALS: BP 122/87; PULSE 104; RESP 18; TEMP 36.3; O2SAT 94
[2025-08-20] MEDS: Potassium Chloride ER 20 MEQ TAB.ER.PRT PO (21:00)
[2025-08-21] VITALS (7 sets, daily range): BP systolic 122–156; BP diastolic 60–102; PULSE 94–111; RESP 18; TEMP 36.2–36.8; O2SAT 94–96
[2025-08-21] MEDS: Thiamine HCL 200 MG in 0.9 % Sodium Chloride 100 ML 204 MG IV (02:51)
[2025-08-21] MEDS: Nicotine 21 MG PATCH.TD24 TRANSDERMA (03:03)
[2025-08-21 06:24] LABS: MANUAL DIFF FLAG NO
[2025-08-21 06:40] LABS: Alanine Aminotransferase 25 U/L (0-40); Albumin Level 3.0 g/dL (3.5-5.0); Alkaline Phosphatase 73 U/L (39-117); Anion Gap 10 (12-20); Aspartate Amino Transferase 66 U/L (5-37); Blood Urea Nitrogen 7 mg/dL (9-16); Calcium 8.5 mg/dL (8.4-10.2); Carbon Dioxide 29 mmol/L (22-29); Chloride 101 mmol/L (96-108); Creatinine Clr Calc Pharmacy 146.2; Estimated Glomerular Filt Rate > 60; Potassium 3.3 mmol/L (3.3-5.1); Sodium 137 mmol/L (135-145); Total Protein 5.6 g/dL (6.5-8.0)
[2025-08-21 06:43] LABS: Hematocrit 40.0 % (42.0-52.0); Hemoglobin 13.5 g/dl (14.0-18.0); Imm Gran Abs Auto 0.04 X10*3/uL (0.00-0.03); Imm Gran Pct Auto 0.7 % (0.0-0.4); Lymphocytes Absolute Auto 1.8 X10*3/uL (1.2-4.9); Mean Corpuscular HGB Conc 33.8 g/dl (31.0-36.0); Mean Corpuscular Hemoglobin 33.5 pg (27.0-33.0); Mean Corpuscular Volume 99.3 fL (80.0-98.0); NRBC Abs Auto 0.000 X10*3/uL (0.0-0.012); NRBC Pct Auto 0.0 /100WBC (0.0-0.2); Platelet Count 121 X10*3/uL (160-400); Red Blood Count 4.03 X10*6/uL (4.60-5.80); White Blood Count 5.5 X10*3/uL (4.8-10.8)
[2025-08-21] MEDS: PHENobarbital 15 MG TABLET PO ×2 (09:00→21:03)
[2025-08-21] MEDS: Potassium Chloride ER 20 MEQ TAB.ER.PRT PO ×2 (09:01→21:03)
--- NOTE | 2025-08-21 12:03 | HO.ADDICT_ITS ---
History of Present Illness Date of Service: Chief Complaint: etoh withdrawal Reason for Consult: AUD Sources of Information: patient interviewed and chart reviewed HPI Narrative: Patient is a 60 year old male who presented to [facility] ED, reporting severe knee pain, and while in ED was noted to be quite tremulous. Patient reported drinking almost daily, with history of alcohol withdrawal seizure. Phenobarbital initiated and patient medically admitted. Patient seen over the weekend by liquified natural gas specialist--evaluation reviewed Patient expressed interest in restarting Naltrexone-which he had taken at one time for about 2 months total, including one Vivitrol injection Patient seen in room 476. He is awake, alert, pleasant and engaged in interview He states withdrawal sx much improved, and he feels much better . Discussed plan to restart Naltrexone, he states he is comfortable with the medication, and is hoping it will help him stop drinking Reporting that some days he will drinking every day, other times he will drink a couple of days a week . States that he has abstained from alcohol use for a couple years once , and when father drinking resumed. Admissions to ATS level of care (non recently) Appeared overall comfortable -no tremor or restlessness noted Denies GI sx Medical Evaluation Reviewed: Yes Review of Systems Constitutional: Reports as per HPI (c/o ongoing knee pain ) Diagnostics Vital Signs (24Hr): Vital Signs - 24 hr 08/20/25 16:00 08/20/25 20:00 08/21/25 00:00 Temperature 97.8 F 97.4 F 97.2 F Pulse Rate 92 104 H 94 Respiratory Rate 20 18 18 Blood Pressure 141/88 H 122/87 156/84 H Pulse Oximetry 93 94 95 Oxygen Delivery Method Room Air Room Air Room Air 08/21/25 04:00 08/21/25 07:36 08/21/25 11:23 Temperature 97.3 F 98.2 F 98.0 F Pulse Rate 103 H 111 H 94 Respiratory Rate 18 18 18 Blood Pressure 140/60 H 122/86 148/102 H Pulse Oximetry 96 96 95 Oxygen Delivery Method Room Air Room Air Room Air BMI result Body Mass Index 21.8 Labs 08/21/25 06:18 08/21/25 06:18 Labs: Laboratory Results - last 48 hr 08/20/25 08/21/25 06:55 06:18 WBC 5.4 5.5 RBC 3.87 L 4.03 L Hgb 13.0 L 13.5 L Hct 38.4 L 40.0 L MCV 99.2 H 99.3 H MCH 33.6 H 33.5 H MCHC 33.9 33.8 RDW 15.7 15.4 Plt Count 139 L D 121 L MPV 10.2 10.2 Immature Gran % (Auto) 0.7 H 0.7 H Neut % (Auto) 55.2 54.7 Lymph % (Auto) 32.0 33.3 [place] % (Auto) 10.6 9.5 Eos % (Auto) 1.3 1.3 Baso % (Auto) 0.2 0.5 Lymph # (Auto) 1.7 1.8 [place] # (Auto) 0.6 0.5 Eos # (Auto) 0.1 0.1 Baso # (Auto) 0.0 0.0 Abs Immat Gran (auto) 0.04 H 0.04 H Absolute Neuts (auto) 3.0 3.0 Absolute Nucleated RBC 0.000 0.000 Nucleated RBC % (auto) 0.0 0.0 Sodium 137 137 Potassium 3.2 L 3.3 Chloride 101 101 Carbon Dioxide 27 29 Anion Gap 12 10 L BUN 6 L 7 L Creatinine 0.52 0.53 Estim Creat Clear Calc 149.0 146.2 Estimated GFR > 60 > 60 Fasting Glucose 102 H 161 H Calcium 8.2 L 8.5 Total Bilirubin 0.8 0.7 AST 43 H 66 H ALT 15 25 Alkaline Phosphatase 79 73 Total Protein 5.6 L 5.6 L Albumin 3.0 L 3.0 L Imaging Radiology Impressions: ITS Impressions Knee X-Ray 08/18/25 10:37 IMPRESSION: Minimal changes of osteoarthritis. Electronically signed by: Wolf Mcdonald MD 08/18/2025 10:48 AM [facility] Mental Status Exam Mental Status Exam Level of Consciousness: Awake, Appropriate and Alert Patient Behavior: Appropriate and Talkative Affect Description: Calm and Appropriate Speech Pattern: Clear Thought Process: Intact Thought Content: positive for Intact, positive for [place] and positive for Circumstantial Judgement: Good Medications Medications Current Medications Acetaminophen (Acetaminophen 325 Mg Tablet) 650 mg PO Q6H PRN PRN Reason: Pain, Mild 1-3,fever,headache Calcium Carbonate (Calcium Carbonate 750 Mg Tab.Chew) 750 mg PO Q4H PRN PRN Reason: Heartburn Enoxaparin Sodium (Enoxaparin Sodium 40 Mg/0.4 Ml Syringe) 40 mg SUBCUT Q24H [facility] Last Admin: 08/20/25 14:22 Dose: Not Given Famotidine (Famotidine/Pf 20 Mg/2 Ml Vial) 20 mg IVPUSH DAILY [facility] Last Admin: 08/21/25 09:09 Dose: Not Given Folic Acid (Folic Acid 1 Mg Tablet) 1 mg PO DAILY [facility] Last Admin: 08/21/25 09:01 Dose: 1 mg Thiamine HCl 200 mg/ Sodium (Chloride) 102 mls @ 204 mls/hr IV Q12H [facility] Last Infusion: 08/21/25 03:26 Dose: Infused Magnesium Hydroxide (Milk Of Magnesia 30 Ml Oral.Susp) 30 ml PO DAILY PRN PRN Reason: Constipation Magnesium Oxide (Magnesium Oxide 400 Mg Tablet) 800 mg PO BIDPC [facility] Last Admin: 08/21/25 09:01 Dose: 800 mg Melatonin (Melatonin 3 Mg Tablet) 6 mg PO BEDTIME PRN PRN Reason: Insomnia Nicotine (Nicotine 21 Mg Patch.Td24) 21 mg TRANSDERMA DAILY [facility] Last Admin: 08/21/25 03:03 Dose: 21 mg Oxycodone HCl (Oxycodone Hcl Immed Release 5 Mg Tablet) 5 mg PO Q4H PRN PRN Reason: Pain, Moderate(Pain Scale 4-6) Last Admin: 08/20/25 15:29 Dose: 5 mg Pharmacy Consult (Consult Rx Etoh Phenob Im/Po) 1 each MISCELLANE ONCE PRN; Protocol PRN Reason: Consult order Phenobarbital (Phenobarbital 15 Mg Tablet) 15 mg PO BID [facility] Stop: 08/22/25 21:01 Last Admin: 08/21/25 09:00 Dose: 15 mg Phenobarbital (Phenobarbital 15 Mg Tablet) 15 mg PO DAILY [facility] Stop: 08/24/25 09:01 Potassium Chloride (Potassium Chloride Er 20 Meq Tab.Er.Prt) 20 meq PO BID [facility] Stop: 08/21/25 21:01 Last Admin: 08/21/25 09:01 Dose: 20 meq Sodium Chloride (0.9 % Sodium Chloride Flush 3 Ml Syringe) 3 ml IVFLUSH QSHIFT [facility] Last Admin: 08/21/25 09:08 Dose: Not Given Allergies Allergies Allergy/AdvReac Type Severity Reaction Status Date / Time No Known Allergies Allergy Verified 08/18/25 10:00 Assessment & Plan Assessment & Plan (1) Alcohol use disorder, severe, dependence: Status: Acute Code(s): F10.20 - Alcohol dependence, uncomplicated Assessment and Plan: * restart naltrexone 50mg QD --aware he should not be taking with oxycodone * liquified natural gas specialist to follow up with listing of [facility] providers as patient believes he will be staying [place], but is not positive. * risk reduction discussion Total time managing care of this patient today __30__ minutes. PMFSH Past Medical History Medical History (Updated 08/21/25 @ 12:03 by Yasmeen Pires CNP) Hypertension Alcohol dependence Social History Social History (Updated 08/18/25 @ 13:38 by GRANT Steel) Household Members: None and Other Housing: Homeless Do you presently have visiting nurse or other home services: No Alcohol intake: current Alcohol intake frequency: 3 or more drinks per day Alcohol type: hard liquor Patient Tobacco Use Status: Current everyday Tobacco user Tobacco use type: Cigarette Cigarette Packs Per Day: 20 Cigarettes Per Day: 400.0 e-Cigarette/Vaping Use: Currently Using Second Hand Smoke Exposure: No Advance Directives Date on File: 07/26/25 service: No
--- NOTE | 2025-08-21 12:21 | MHC.CM.PN ---
Addendum entered by Lashawn Dickey 08/21/25 15:34: [facility] OFFERING A BED THEY WILL SUBMIT FOR AUTH DC EXPECTED TOMORROW Original Note: CM MET WITH PT TO DISCUSS DCP HE REPORTS HE IS AGREEABLE TO [facility] AND HOPES TO BE [facility]AR [facility] HE STATES HE HAS NEVER BEEN TO [facility] PER DISCUSSION, REFERRALS WERE MADE TO [facility] REPORTS THEY ARE UNABLE TO ACCEPT PT HE LEFT AMA ALMOST IMMEDIATELY AFTER ADMISSION LAST WEEK
[2025-08-21] MEDS: oxyCODONE HCl Immed Release 5 MG TABLET PO (12:28)
--- NOTE | 2025-08-21 13:06 | MHC.RECOVRN ---
List of outpatient [facility] tx providers left with pt for review. Pt is interested in providers in [facility] and thus declined outpatient referral at the [facility] for treatment of his AUD. Pt verbalized understanding of the information provided and plans to make phone calls and decide on a provider once he establishes housing.
--- NOTE | 2025-08-21 16:51 | HO.PM.IMPN ---
Subjective Subjective Date of Service: 08/21/25 Interval History: No acute events overnight. No evidence of withdrawal Review of Systems Denies chest pain Denies shortness of breath Denies nausea vomiting diarrhea Denies fever chills Physical Exam Vital Signs: Vital Signs: Last Vital Signs Temp 98.3 F 08/21/25 15:29 Pulse 95 08/21/25 15:29 Resp 18 08/21/25 15:29 BP 151/89 H 08/21/25 15:29 Pulse Ox 96 08/21/25 15:29 O2 Del Method Room Air 08/21/25 15:29 BMI result Body Mass Index 21.8 Const: Other: Awake alert no acute distress Resp: Other: Clear to auscultation bilaterally no rales rhonchi or wheezes Cardio: Other: No S4; positive S1-S2; no S3 murmurs rubs or gallops GI: Other: Soft nontender nondistended normoactive bowel sounds Extrem: Other: No edema bilaterally Objective Data Active Medications Acetaminophen (Acetaminophen 325 Mg Tablet) 650 mg PO Q6H PRN PRN Reason: Pain, Mild 1-3,fever,headache Calcium Carbonate (Calcium Carbonate 750 Mg Tab.Chew) 750 mg PO Q4H PRN PRN Reason: Heartburn Enoxaparin Sodium (Enoxaparin Sodium 40 Mg/0.4 Ml Syringe) 40 mg SUBCUT Q24H [facility] Last Admin: 08/21/25 15:35 Dose: Not Given Documented By: RYANNE Non-Admin Reason: Patient Refused Famotidine (Famotidine/Pf 20 Mg/2 Ml Vial) 20 mg IVPUSH DAILY [facility] Last Admin: 08/21/25 09:09 Dose: Not Given Documented By: RYANEN Non-Admin Reason: No IV Folic Acid (Folic Acid 1 Mg Tablet) 1 mg PO DAILY [facility] Last Admin: 08/21/25 09:01 Dose: 1 mg Documented By: RYANNE Magnesium Hydroxide (Milk Of Magnesia 30 Ml Oral.Susp) 30 ml PO DAILY PRN PRN Reason: Constipation Magnesium Oxide (Magnesium Oxide 400 Mg Tablet) 800 mg PO BIDPC [facility] Last Admin: 08/21/25 16:49 Dose: 800 mg Documented By: RYANNE Melatonin (Melatonin 3 Mg Tablet) 6 mg PO BEDTIME PRN PRN Reason: Insomnia Nicotine (Nicotine 21 Mg Patch.Td24) 21 mg TRANSDERMA DAILY [facility] Last Admin: 08/21/25 03:03 Dose: 21 mg Documented By: RIVER Oxycodone HCl (Oxycodone Hcl Immed Release 5 Mg Tablet) 5 mg PO Q4H PRN PRN Reason: Pain, Moderate(Pain Scale 4-6) Last Admin: 08/21/25 12:28 Dose: 5 mg Documented By: RYANNE Pharmacy Consult (Consult Rx Etoh Phenob Im/Po) 1 each MISCELLANE ONCE PRN; Protocol PRN Reason: Consult order Phenobarbital (Phenobarbital 15 Mg Tablet) 15 mg PO BID [facility] Stop: 08/22/25 21:01 Last Admin: 08/21/25 09:00 Dose: 15 mg Documented By: RYANNE Phenobarbital (Phenobarbital 15 Mg Tablet) 15 mg PO DAILY [facility] Stop: 08/24/25 09:01 Potassium Chloride (Potassium Chloride Er 20 Meq Tab.Er.Prt) 20 meq PO BID [facility] Stop: 08/21/25 21:01 Last Admin: 08/21/25 09:01 Dose: 20 meq Documented By: RYANNE Sodium Chloride (0.9 % Sodium Chloride Flush 3 Ml Syringe) 3 ml IVFLUSH QSHIFT [facility] Last Admin: 08/21/25 09:08 Dose: Not Given Documented By: RYANNE Non-Admin Reason: IV pulled out Thiamine HCl (Thiamine Hcl 100 Mg Tablet) 100 mg PO DAILY [facility] Labs 08/21/25 06:18 08/21/25 06:18 Labs: Laboratory Results - last 24 hr 08/21/25 06:18 MCV 99.3 H MCH 33.5 H MCHC 33.8 RDW 15.4 Plt Count 121 L MPV 10.2 Immature Gran % (Auto) 0.7 H Neut % (Auto) 54.7 Lymph % (Auto) 33.3 [place] % (Auto) 9.5 Eos % (Auto) 1.3 Baso % (Auto) 0.5 Lymph # (Auto) 1.8 [place] # (Auto) 0.5 Eos # (Auto) 0.1 Baso # (Auto) 0.0 Abs Immat Gran (auto) 0.04 H Absolute Neuts (auto) 3.0 Absolute Nucleated RBC 0.000 Nucleated RBC % (auto) 0.0 Anion Gap 10 L Estim Creat Clear Calc 146.2 Estimated GFR > 60 Fasting Glucose 161 H Calcium 8.5 Total Bilirubin 0.7 AST 66 H ALT 25 Alkaline Phosphatase 73 Total Protein 5.6 L Albumin 3.0 L Assessment and Plan (1) Alcohol withdrawal: Status: Acute (2) Hypertension: Status: Acute Plan This is a 60-year-old male with history of hypertension, spinal stenosis, alcohol dependence who presents to the emergency department with left knee pain found to be in alcohol withdrawal 1.Alcohol dependence with withdrawal -phenobarbitol protocol, follow CIWA... -supplemental IV fluids -follow renals/divalent -PT recommends as TR... Awaiting authorization 2.Hypomagnesemia -repleted -repeat in a.m. 3.HTN -acceptable control off therapies -follow clinically and adjust as indicated lovenox Full code Patient will require ongoing stay for management of alcohol withdrawal requiring IM phenobarbital, close monitoring on telemetry Quality Stroke Does the patient have a stroke diagnosis?: No VTE Prior VTE?: No VTE Risk Level:: Medical - moderate - high VTE Device Contraindication: Treatment Not Indicated VTE Drug Contraindication: N/A - Med Ordered
--- NOTE | 2025-08-22 | ECG_ITS ---
Test Reason : tachycardia Blood Pressure : */* mmHG Vent. Rate : 103 BPM Atrial Rate : 103 BPM P-R Int : 172 ms QRS Dur : 64 ms QT Int : 350 ms P-R-T Axes : 69 11 70 degrees QTcB Int : 458 ms Sinus tachycardia Otherwise normal ECG No previous ECGs available Referred By: Artemio Bowles Electronically Signed By: Thiago Zuñiga
[2025-08-22 03:03] VITALS: BP 120/94; PULSE 101; RESP 18; TEMP 36.6; O2SAT 96
[2025-08-22 07:13] VITALS: BP 159/104; PULSE 107; RESP 18; TEMP 36.4; O2SAT 95
[2025-08-22] MEDS: Nicotine 21 MG PATCH.TD24 TRANSDERMA (08:24)
[2025-08-22] MEDS: PHENobarbital 15 MG TABLET PO ×2 (08:25→20:55)
[2025-08-22 11:31] VITALS: BP 148/102; PULSE 102; RESP 18; TEMP 36.8; O2SAT 95
--- NOTE | 2025-08-22 14:29 | P.PNIM_ITS ---
Subjective Subjective Date of Service: 08/22/25 Interval History: No acute events overnight. No evidence of withdrawal Review of Systems Denies chest pain Denies shortness of breath Denies nausea vomiting diarrhea Denies fever chills Physical Exam 2 Vital Signs: Vital Signs: Last Vital Signs Temp 98.2 F 08/22/25 11:31 Pulse 102 H 08/22/25 11:31 Resp 18 08/22/25 11:31 BP 148/102 H 08/22/25 11:31 Pulse Ox 95 08/22/25 11:31 O2 Del Method Room Air 08/22/25 11:31 BMI result Body Mass Index 21.8 Objective Data Active Medications Acetaminophen (Acetaminophen 325 Mg Tablet) 650 mg PO Q6H PRN PRN Reason: Pain, Mild 1-3,fever,headache Calcium Carbonate (Calcium Carbonate 750 Mg Tab.Chew) 750 mg PO Q4H PRN PRN Reason: Heartburn Enoxaparin Sodium (Enoxaparin Sodium 40 Mg/0.4 Ml Syringe) 40 mg SUBCUT Q24H [facility] Last Admin: 08/22/25 11:57 Dose: Not Given Documented By: RYANNE Non-Admin Reason: Patient Refused Famotidine (Famotidine/Pf 20 Mg/2 Ml Vial) 20 mg IVPUSH DAILY [facility] Last Admin: 08/22/25 08:27 Dose: Not Given Documented By: RYANNE Non-Admin Reason: No Access Folic Acid (Folic Acid 1 Mg Tablet) 1 mg PO DAILY [facility] Last Admin: 08/22/25 08:26 Dose: 1 mg Documented By: RYANNE Magnesium Hydroxide (Milk Of Magnesia 30 Ml Oral.Susp) 30 ml PO DAILY PRN PRN Reason: Constipation Magnesium Oxide (Magnesium Oxide 400 Mg Tablet) 800 mg PO BIDPC [facility] Last Admin: 08/22/25 08:25 Dose: 800 mg Documented By: RYANNE Melatonin (Melatonin 3 Mg Tablet) 6 mg PO BEDTIME PRN PRN Reason: Insomnia Nicotine (Nicotine 21 Mg Patch.Td24) 21 mg TRANSDERMA DAILY [facility] Last Admin: 08/22/25 08:24 Dose: 21 mg Documented By: RYANNE Nicotine Polacrilex (Nicotine Polacrilex 2 Mg Gum) 2 mg BUCCAL Q1H PRN PRN Reason: Nicotine Cravings Last Admin: 08/22/25 02:18 Dose: 2 mg Documented By: MELINA Oxycodone HCl (Oxycodone Hcl Immed Release 5 Mg Tablet) 5 mg PO Q4H PRN PRN Reason: Pain, Moderate(Pain Scale 4-6) Last Admin: 08/21/25 12:28 Dose: 5 mg Documented By: RYANNE Pharmacy Consult (Consult Rx Etoh Phenob Im/Po) 1 each MISCELLANE ONCE PRN; Protocol PRN Reason: Consult order Phenobarbital (Phenobarbital 15 Mg Tablet) 15 mg PO BID [facility] Stop: 08/22/25 21:01 Last Admin: 08/22/25 08:25 Dose: 15 mg Documented By: RYANNE Phenobarbital (Phenobarbital 15 Mg Tablet) 15 mg PO DAILY [facility] Stop: 08/24/25 09:01 Sodium Chloride (0.9 % Sodium Chloride Flush 3 Ml Syringe) 3 ml IVFLUSH QSHIFT [facility] Last Admin: 08/22/25 08:27 Dose: Not Given Documented By: RYANNE Non-Admin Reason: no IV Thiamine HCl (Thiamine Hcl 100 Mg Tablet) 100 mg PO DAILY [facility] Last Admin: 08/22/25 08:26 Dose: 100 mg Documented By: RYANNE Labs 08/21/25 06:18 08/21/25 06:18 Assessment and Plan (1) Alcohol withdrawal: Status: Acute (2) Hypertension: Status: Acute Plan This is a 60-year-old male with history of hypertension, spinal stenosis, alcohol dependence who presents to the emergency department with left knee pain found to be in alcohol withdrawal Alcohol dependence with withdrawal phenobarbitol protocol, follow CIWA... supplemental IV fluids follow renals/divalent PT recommends as TR... Awaiting authorization Hypomagnesemia replete HTN acceptable control off therapies follow clinically and adjust as indicated lovenox Full code Patient will require ongoing stay for management of alcohol withdrawal requiring IM phenobarbital, close monitoring on telemetry Awaiting Quality Stroke Does the patient have a stroke diagnosis?: No VTE Prior VTE?: No VTE Risk Level:: Medical - moderate - high VTE Device Contraindication: Treatment Not Indicated VTE Drug Contraindication: N/A - Med Ordered
--- NOTE | 2025-08-22 14:36 | PC.NURSE ---
Pt has still been hypertensive today. He gets tachycardic at times. He is currently 120, sitting at the edge of the bed. It was briefly up to 140 at rest. Provider aware. Ordered EKG and labs.
[2025-08-22 15:15] VITALS: BP 153/96; PULSE 104; RESP 18; TEMP 36.7; O2SAT 97
[2025-08-22 15:41] LABS: Anion Gap 11 (12-20); Blood Urea Nitrogen 11 mg/dL (9-16); Calcium 9.0 mg/dL (8.4-10.2); Carbon Dioxide 28 mmol/L (22-29); Chloride 100 mmol/L (96-108); Creatinine Clr Calc Pharmacy 119.2; Estimated Glomerular Filt Rate > 60; Potassium 4.1 mmol/L (3.3-5.1); Sodium 135 mmol/L (135-145)
[2025-08-22 20:00] VITALS: BP 137/97; PULSE 99; RESP 16; TEMP 36.6; O2SAT 95
[2025-08-23] VITALS: BP 158/109; PULSE 101; RESP 20; TEMP 36.3; O2SAT 95
[2025-08-23 04:00] VITALS: BP 139/99; PULSE 95; RESP 16; TEMP 36.7; O2SAT 95
[2025-08-23 07:43] VITALS: BP 140/77; PULSE 94; RESP 18; TEMP 36.6; O2SAT 97
[2025-08-23] MEDS: PHENobarbital 15 MG TABLET PO (08:51)
[2025-08-23] MEDS: Nicotine 21 MG PATCH.TD24 TRANSDERMA (08:52)
--- NOTE | 2025-08-23 08:57 | P.DS_ITS ---
DS: Providers Provider Date of admission: 08/18/25 13:14 Date of discharge: 08/23/25 Primary care physician: None Physician Consults: 08/18/25 13:28 Addiction Medicine Provider Routine Consulting Provider: Addiction Covering Reason for consultation: etoh dependence with withdrawal Has provider been notified: No DS: Diagnosis Discharge Diagnosis (1) Alcohol withdrawal: Status: Acute (2) Hypertension: Status: Acute DS: Summary Hospital Course Hospital Course: Admission hpi Chief Complaint: knee pain This is a 60 year old male with history of alcohol dependence, HTN, currently homeless who initially presented to the ED for complaints of left knee pain. Patient reports left knee pain with difficulty ambulating. He was not found to have any erythema or significant swelling of the left knee. X-ray showed minimal arthritis. He was treated with IM ketorolac. During his time in the emergency department he became increasingly tremulous and tachycardic. Patient admitted to drinking 15-20 nips three times a week and less in between. CIWA score elevated at 11. Patient reports a history of alcohol withdrawal with withdrawal seizures in the past and previous admission at [facility]. Patient is currently homeless and he is not taking any medication on a regular basis at this time. Emergency department he also reported nausea but denied abdominal pain. He was started on phenobarbital protocol and we will be admitted to the hospital for further management. hospital course This is a 60-year-old male with history of hypertension, spinal stenosis, alcohol dependence who presents to the emergency department with left knee without trauma or any sing of infection, there was no swelling or redness, xray showed no signficant arthiritis. Patient was noted to be in alcohol withdrawal and was initiated on phenobarbital, lab work was noted for low magnesium which was replaced, Patient has beeen evaluted by physical therapy and deemed appropate for short term rehab. He will be discharged to short term rehab for less than 30 days. Problems: Alcohol dependence with withdrawal, treated with phenobarbitol protocol, follow CIWAS score are low now folic and thiamine replacement Hypomagnesemia repleted and put on oral replacement HTN, controlled To short term rehab for less than 30 days Time Attestation Discharge Coordination Time (in mins): 45 Quality: Safe Use of Opioids Does Pt have an Active Cancer Diagnosis on the Problem List?: No Quality: Stroke Does the patient have a stroke diagnosis?: No Physical Exam Vital Signs: Vital Signs: Last Vital Signs Temp 97.9 F 08/23/25 07:43 Pulse 94 08/23/25 07:43 Resp 18 08/23/25 07:43 BP 140/77 H 08/23/25 07:43 Pulse Ox 97 08/23/25 07:43 O2 Del Method Room Air 08/23/25 07:43 BMI result Body Mass Index 21.8 DS: Data Data Completed and Pending Labs on day of discharge: Laboratory Results - last 24 hr 08/22/25 14:56 Sodium 135 Potassium 4.1 D Chloride 100 Carbon Dioxide 28 Anion Gap 11 L BUN 11 Creatinine 0.65 Estim Creat Clear Calc 119.2 Estimated GFR > 60 Random Glucose 161 H Calcium 9.0 Discharge Plan Discharge Anticipated Discharge Date/Time: 08/23/25 09:03 Patient Disposition: Xfer SNF Discharge Diagnosis: Alcohol withdrawal, Hypomagnesemia, Weakness Referrals: Brendan Simon [Outside] - 1 Week Physician,None [Primary Care Provider, Medical] - 1 Week Discharge Medications: New naltrexone 50 mg tablet 50 mg PO DAILY Qty: 30 0RF acetaminophen 325 mg Tablet 650 mg PO Q6H PRN (Reason: Pain, Mild 1-3,Fever,Headache) Qty: 30 0RF melatonin 3 mg Tablet 6 mg PO BEDTIME PRN (Reason: Insomnia) Qty: 60 0RF magnesium oxide 400 mg (241.3 mg magnesium) Tablet 800 mg PO BIDPC Qty: 60 0RF nicotine 21 mg/24 hr Patch 24 Hour 21 mg transdermal DAILY Qty: 28 0RF folic acid 1 mg Tablet 1 mg PO DAILY Qty: 30 0RF oxycodone 5 mg Tablet 5 mg PO Q4H PRN (Reason: Pain, Moderate(Pain Scale 4-6)) Qty: 12 0RF Rx Instructions: Partial Fill upon patient request. thiamine mononitrate (vit B1) 100 mg Tablet 100 mg PO DAILY Qty: 60 0RF Discharge Orders: Discharge Order (Routine); Ordered 08/23/25 Ordered By: Artemio Bowles Diet: Advance to usual diet Activity on Discharge: As tolerated Stand Alone Forms: Patient Portal Discharge page Print Language: Belarusian Care Plan Goals: recovery from weakness, knee pain and alcohol withdrawal Health Concerns: alcohol withdrawal hypomagnesemia Knee pain Plan of Treatment: to short term rehab for less than 30 days Assessment: see above Discharge Date/Time: 08/23/25 13:10
[2025-08-23 09:47] LABS: Magnesium 1.7 mg/dL (1.6-2.6)
[2025-08-23] MEDS: oxyCODONE HCl Immed Release 5 MG TABLET PO (11:23)
--- NOTE | 2025-08-23 11:29 | MHC.CM.PN ---
Second IMM 08/23/25, Pt. has been medically cleared, [facility].
[2025-08-23 11:53] VITALS: BP 137/86; PULSE 100; RESP 18; TEMP 36.2; O2SAT 96
--- NOTE | 2025-08-23 13:48 | PC.NURSE ---
Pt alert and oriented. Ambulated to bathroom with assistance and walker. Given oxycodone for pain. Agreeable to go to rehab. Pt had coat, pants, shirt, no shoes. He collected his own belongings. Report called to Jarred. Given DC instructions. EMS escorted him off the unit.
== END 2025-08-23 13:10 | disposition skilled nursing facility (03) | DRG 897 ==
LOC: HO.ED 10:10 → HO.EDOVER 13:17 → HO.IMC 19:16
PROVIDERS: Family Medicine; Hospitalist; Registered Nurse Emergency; Admitting Provider Physician Assistant Medical; Emergency Provider Emergency Medicine; Visit Provider Internal Medicine
DX: F10.239 Alcohol dependence with withdrawal, unspecified (principal); I10 Essential (primary) hypertension; E83.42 Hypomagnesemia; F17.210 Nicotine dependence, cigarettes, uncomplicated; Y90.6 Blood alcohol level of 120-199 mg/100 ml; Z71.6 Tobacco abuse counseling; Z79.899 Other long term (current) drug therapy
CPT/HCPCS: 36415; 73564; 80048; 80053; 80076; 80307; 83735; 85025; 85652; 86140; 93005; 97116; 97162; 99285; J1308; J1650; J1885; J2405; J2560; J3411; J3475; J7120; S9485

== ENCOUNTER → 2025-08-18 10:25 | Outpatient (BNV) | payer MEDICARE, SELFPAY | PROVIDERS: Emergency Provider Emergency Medicine; Visit Provider Radiology Diagnostic Radiology | DX: M25.562 Pain in left knee (principal) | CPT/HCPCS: 73564 ==

== ENCOUNTER 2025-08-18 13:14 | Outpatient (BNV) | payer MEDICARE, SELFPAY | END 2025-08-22 14:43 | PROVIDERS: Admitting Provider Physician Assistant Medical; Emergency Provider Emergency Medicine; Visit Provider Internal Medicine Cardiovascular Disease | DX: R00.0 Tachycardia, unspecified (principal) | CPT/HCPCS: 93010 ==

== ENCOUNTER → 2025-08-18 13:14 | Outpatient (BNV) | payer MEDICARE, SELFPAY | PROVIDERS: Admitting Provider Physician Assistant Medical; Emergency Provider Emergency Medicine; Visit Provider Nurse Practitioner Psychiatric/Mental Health | DX: F10.20 Alcohol dependence, uncomplicated (principal) | CPT/HCPCS: 99221 ==

== ENCOUNTER → 2025-08-18 13:14 | Outpatient (BNV) | payer MEDICARE, SELFPAY | PROVIDERS: Admitting Provider Physician Assistant Medical; Emergency Provider Emergency Medicine; Visit Provider Physician Assistant Medical | DX: F10.939 Alcohol use, unspecified with withdrawal, unspecified (principal) | CPT/HCPCS: 99223 ==